=== PATIENT | male | born 1940 ===

== ENCOUNTER 2020-05-28 04:51 | Emergency (ER) | payer MEDICARE, MEDICAID, SELFPAY ==
--- NOTE | ~2020-05-28 | XR_ITS ---
EXAMINATION: XR CHEST CLINICAL INFORMATION: Chest pain COMPARISON: 08/10/2017 TECHNIQUE: 2 views of the chest were obtained. FINDINGS: Right IJ port catheter tip lies in the region of the upper SVC. Lung volumes are symmetric. Redemonstrated streaky focal opacity in the mid right lung. No new consolidation bilaterally. No evidence of pneumothorax, pleural effusion, or pulmonary edema. Cardiac size is within normal limits. Calcification is present at the aortic arch. No acute osseous findings are seen. XR/XR chest 2V IMPRESSION: Persistent streaky right midlung opacity favoring scarring. No new acute findings identified.
--- NOTE | ~2020-05-28 | XR_ITS ---
EXAMINATION: XR THORACOLUMBAR SPINE CLINICAL INFORMATION: Increased back pain, history of lung adeno COMPARISON: 08/10/2017 TECHNIQUE: 2 views of the thoracic spine. FINDINGS: Alignment of the thoracic spine appears anatomic. Vertebral body heights and intervertebral disc spaces appear preserved. No acute fracture is seen. Additional thoracic findings are described on accompanying chest CT. XR/XR thoracic spine 2V IMPRESSION: No acute findings identified.
--- NOTE | ~2020-05-28 | XR_ITS ---
EXAMINATION: XR LUMBOSACRAL SPINE CLINICAL INFORMATION: Back pain, history of lung cancer COMPARISON: 04/23/2017 TECHNIQUE: Three views of the lumbosacral spine. FINDINGS: There is anatomic alignment of the lumbar vertebral bodies and posterior lungs. Vertebral body heights are maintained. No acute fracture is seen. There are endplate osteophytes of the mid to lower lumbar spine. Sacroiliac joints appear intact. XR/XR lumbar spine 2-3V IMPRESSION: No acute findings identified. Multilevel degenerative endplate changes.
[2020-05-28 04:57] VITALS: BP 142/80; PULSE 84; RESP 18; TEMP 36.9; O2SAT 98; BMI 21.4
--- NOTE | 2020-05-28 05:21 | ECG_ITS ---
Test Reason : SHORTNESS OF BREATH Blood Pressure : / mmHG Vent. Rate : 067 BPM Atrial Rate : 067 BPM P-R Int : 136 ms QRS Dur : 072 ms QT Int : 398 ms P-R-T Axes : 019 -03 042 degrees QTc Int : 420 ms Normal sinus rhythm Normal ECG When compared with ECG of 28-JUL-2017 09:50, Vent. rate has decreased BY 49 BPM Referred By: Andi Dewitt Electronically Signed By:SANA FRIEND
--- NOTE | 2020-05-28 05:24 | ED_ITS ---
HPI - General Adult General Chief complaint: General Medical Stated complaint: Multiple Complaints Time Seen by Provider: 05/28/20 04:57 Source: patient Mode of arrival: ambulatory Limitations: language barrier (Patient speaks Croatian only, the iPad interpreter for the deaf was used.) History of Present Illness HPI narrative: 80-year-old male who presents emergency department for evaluation of back pain. The patient states that he has been having intermittent back pain from his neck down to his sacrum for the past 3 months. The pain is intermittent but he states that it is becoming more frequent. He describes the pain as a dull ache which is greater than 10/10 at its worst. The pain is worse with movement. He has taken Tylenol with only minimal relief of his pain. He denied any injury. He states that he has noticed urinary frequency and dysuria. He denied numbness, weakness, loss of bowel or bladder control. The patient was not able to give me any details about his cancer history. The following information was obtained from a hematology oncology clinic progress note dated 09/20/2017: Patient was treated for adenocarcinoma of the right lung and squamous carcinoma of the left tonsil with chemoradiation in 2015 and 2016, right middle lobectomy in July of 2017. . He was under the care of Dr. Gil. The patient then went to [place] in August of 2017 . He states that while he was in [place], he did not follow-up with an oncologist. He returned to the [place] area approximately 3 months ago and has not had any follow-up care. Related Data Allergies Allergy/AdvReac Type Severity Reaction Status Date / Time sulfamethazine Allergy Intermediate ITCHING Unverified 12/11/19 19:26 [SULFAMETHAZINE] Sulfamethazine Allergy Unknown itching Uncoded 08/10/17 00:00 Review of Systems Review of Systems: Yes all other systems are reviewed and are negative Neurologic: Denies Abnormal speech present [facility] Past Medical History [facility] Narrative: Past medical history significant for adenocarcinoma of the right lung and squamous carcinoma of the left tonsil. The patient is currently living in [place] with his daughter. He states that he stopped smoking cigarettes 3 months prior. He has a greater than 30 pack-year history of smoking. He states that he occasionally drinks alcohol. He denies drug use. Medical History (Updated 05/28/20 @ 07:08 by Andi Dewitt MD) Cancer Surgical History (Updated 05/28/20 @ 05:07 by Jessica Castañeda) History of dental surgery Social History Social History Advance Directives: No Physical Exam Vital Signs: Vital Signs: Last Vital Signs Temp 98.4 F 05/28/20 04:57 Pulse 84 05/28/20 04:57 Resp 18 05/28/20 04:57 BP 142/80 H 05/28/20 04:57 Pulse Ox 98 05/28/20 04:57 Body Mass Index 21.4 Const: General: cooperative Orientation/consciousness: oriented to person and oriented to place Limitations: no limitations HENMT: Head: Yes normal to inspection, Yes normocephalic and Yes atraumatic Ears: external ears normal General nose exam: Normal external nose present Face and sinus: Yes normal facial exam Mouth: Normal oral and palatal mucosa present Throat: Yes posterior oropharynx normal Eyes: Periorbital: periorbital findings normal Eyelids: Yes eyelids normal Conjunctivae: conjunctivae normal Sclerae: sclerae normal Corneas: corneas normal Pupils: Equal, round and reactive pupils present Direct Ophthalmoscopy: normal light reflex Neck: Neck: Yes full ROM, Yes no lymphadenopathy, Yes no meningeal signs, Yes trachea midline and Yes supple Chest: Chest palpation & inspection: normal inspection of the chest and normal palpation of entire chest wall Resp: Effort & Inspection: normal respiratory effort and able to speak in complete sentences Auscultation: clear to auscultation bilaterally Cardio: Rate: regular rate Rhythm: regular rhythm Heart sounds: S1 normal heart sound present, S2 normal heart sound present and no murmurs GI: Inspection: Yes normal to inspection Palpation (GI): Soft to palpation, nontender, no guarding, not rigid and No hepatosplenomegaly present : General: Yes no CVA tenderness Back/Spine/Pelvis: Back: no CVA tenderness Cervical Spine: normal cervical lordosis Thoracic/Lumbar Spine: thoracic and lumbar spine normal to inspection and paraspinal muscle tenderness bilaterally in the upper thoracic, in the mid thoracic, in the lower thoracic, in the upper lumbar, in the mid lumbar and in the lower lumbar Skin: Lesions: no lesions Rashes: no rashes Wounds: no wounds Neuro: General: oriented to person, oriented to place and no meningeal signs Cranial nerves: Yes CN's II-XII intact bilaterally and Yes Equal, round and reactive pupils present Cognition (Neuro): normal cognition Speech: No Abnormal speech present Motor exam (neuro): 5/5 motor strength present throughout Extrem: General: Yes normal to inspection and Yes full ROM Psych: Appearance: well kempt Mental Status: mental status grossly normal Speech and movement: Normal speech and movement present Affect: normal affect Attitude: cooperative Thought process: Normal thought process present Thought content: Normal thought content present Course Course Course Narrative: 80-year-old male with a history adrnocarcinoma of the right lung and squamous cell carcinoma of the left tonsil treated here at [facility] from [id number] with possible cure who then went to [place] and had no follow-up care for his cancer. He states that he returned from [place] 3 months ago and has been living in the [facility] and has been experiencing diffuse back pain x3 months. He also complained of frequency and dysuria. Physical examination did reveal tenderness with palpation of his thoracic to lumbar spine with no localizing point tenderness as well as tenderness with palpation of his thoracic and lumbar paraspinal muscles bilaterally. I did order a laboratory evaluation, urinalysis, chest x-ray, EKG and thoracic lumbar spine x-rays to look for lytic lesions. The patient was treated with Toradol 30 mg IV for his back pain. 0659: The patient's back pain is significantly better after the IV Toradol. The patient's laboratory evaluation was unremarkable. Also, of note, the patient's alk-phos was not elevated which is reassuring suggested his back pain is less likely caused by metastatic disease. The patient's thoracic and lumbar spine x-rays are consistent with degenerative disease of the spine with no evidence of metastatic lesions. Chest x-ray did reveal a right middle lobe scarring but the patient did have a lobectomy. I did discuss these findings with the patient. The patient will need to follow-up with Dr. Gil to determine if he needs further evaluation and follow-up for his cancer and determine if he needs removal of the Port-A-Cath. Medical Decision Making Lab Data Result diagrams: 05/28/20 05:35 05/28/20 05:35 Labs: Lab Results 05/28/20 05/28/20 05/28/20 Range/Units 05:35 05:35 06:25 WBC 6.1 (4.8-10.8) X10*3/uL RBC 4.26 L (4.60-5.80) X10*6/uL Hgb 13.9 L (14.0-18.0) g/dl Hct 40.7 L (42-52) % MCV 95.5 (80-98) fL MCH 32.6 (27.0-33.0) pg MCHC 34.2 (31.0-36.0) g/dl RDW 12.6 (11.0-16.0) % Plt Count 254 (160-400) X10*3/uL MPV 10.8 (9.4-12.4) fL Immature Gran % (Auto) 0.3 (0.0-0.4) % Neut % (Auto) 51.9 (45-73) % Lymph % (Auto) 28.5 (20-40) % [place] % (Auto) 14.7 H (2-11) % Eos % (Auto) 4.3 H (0-4) % Baso % (Auto) 0.3 (0-2) % Lymph # (Auto) 1.7 (1.2-4.9) X10*3/uL [place] # (Auto) 0.9 (0.1-1.2) X10*3/uL Eos # (Auto) 0.3 (0.0-0.4) X10*3/uL Baso # (Auto) 0.0 (0.0-0.2) X10*3/uL Abs Immat Gran (auto) 0.02 (0.00-0.03) X10*3/uL Absolute Neuts (auto) 3.2 (2.0-8.3) X10*3/uL Absolute Nucleated RBC 0.000 (0.0-0.012) X10*3/uL Nucleated RBC % (auto) 0.0 (0.0-0.2) /100WBC Sodium 141 (135-145) mmol/L Potassium 4.4 (3.3-5.1) mmol/L Chloride 107 (96-108) mmol/L Carbon Dioxide 25 (22-29) mmol/L Anion Gap 13 (12-20) BUN 21 H (9-16) mg/dL Creatinine 0.85 (0.5-1.4) mg/dL Estim Creat Clear Calc 57.4 Estimated GFR > 60 Random Glucose 91 (60-115) mg/dL Calcium 9.6 (8.4-10.2) mg/dL Total Bilirubin 0.4 (0.0-1.0) mg/dL AST 16 (5-37) U/L ALT 12 (0-40) U/L Alkaline Phosphatase 63 (39-117) U/L Total Protein 6.6 (6.5-8.0) g/dL Albumin 4.5 (3.5-5.0) g/dL Urine Color YELLOW Urine Appearance HAZY Urine pH 5.5 (5.0-8.0) Ur Specific [place] 1.025 (1.005-1.025) Urine Protein NEG (NEG-TRACE) MG/DL Urine Glucose (UA) NEG (NEG) MG/DL Urine Ketones NEG (NEG) MG/DL Urine Blood NEG (NEG) Urine Nitrite NEG (NEG) Ur Leukocyte Esterase NEG (NEG) Discharge Plan Discharge Clinical Impression: Back pain Qualifiers: Back pain location: back pain in unspecified location Chronicity: acute Back pain laterality: bilateral Qualified Code(s): M54.9 - Dorsalgia, unspecified Patient Disposition: Home, Self-Care Instructions: Back Pain (ED) Additional Instructions: Your blood work was normal. Your chest x-ray was normal. The x-rays of your upper and lower back did not reveal any significant abnormalities except for arthritis of the back. At this time, I believe that your back pain is due to arthritis and inflammation of your back. Take the following medications for your back pain. Take ibuprofen 200 mg pills, 2 pills every 6 hours as needed for pain. Take Tylenol (acetaminophen) 500 mg pills, 2 pills every 6 hours as needed for pain. You will need to follow-up with Dr. Gil (the cancer doctor) for re-evaluation to make sure that you do not have recurrence of your cancers (adenocarcinoma of the right lung and squamous carcinoma of the left tonsil). Follow-up with Dr. Gil in 2 weeks. Please return to the emergency department if your symptoms get worse or if you develop any symptoms that are concerning to you. Referrals: Anthony Gil MD [Physician] - 2 weeks (Patient returned from [place], no follow-up for his cancer for the past 3 years, presented to the ED with back pain with a negative workup. Needs follow-up for previous cancers (adenocarcinoma of the right lung and squamous carcinoma of the left tonsil).)
[2020-05-28 05:46] LABS: Basophils Percent Auto 0.3 % (0-2); Eosinophils Absolute Auto 0.3 X10*3/uL (0.0-0.4); Eosinophils Percent Auto 4.3 % (0-4); Hematocrit 40.7 % (42-52); Hemoglobin 13.9 g/dl (14.0-18.0); Imm Gran Abs Auto 0.02 X10*3/uL (0.00-0.03); Imm Gran Pct Auto 0.3 % (0.0-0.4); Lymphocytes Absolute Auto 1.7 X10*3/uL (1.2-4.9); Lymphocytes Percent Auto 28.5 % (20-40); MANUAL DIFF FLAG NO; Mean Corpuscular HGB Conc 34.2 g/dl (31.0-36.0); Mean Corpuscular Hemoglobin 32.6 pg (27.0-33.0); Mean Corpuscular Volume 95.5 fL (80-98); Mean Platelet Volume 10.8 fL (9.4-12.4); Monocytes Absolute Auto 0.9 X10*3/uL (0.1-1.2); Monocytes Percent Auto 14.7 % (2-11); Neutrophils Absolute Auto 3.2 X10*3/uL (2.0-8.3); Neutrophils Percent Auto 51.9 % (45-73); Platelet Count 254 X10*3/uL (160-400); Red Blood Count 4.26 X10*6/uL (4.60-5.80); Red Cell Distribution Width 12.6 % (11.0-16.0); White Blood Count 6.1 X10*3/uL (4.8-10.8)
[2020-05-28] MEDS: Ketorolac Tromethamine 30 MG/ML VIAL IVPUSH (06:22)
[2020-05-28 06:34] LABS: Glucose Urine UA NEG (NEG); Leukocyte Esterase Urine NEG (NEG); Nitrite Urine NEG (NEG); PH 5.5 (5.0-8.0); Specific Gravity - Urine 1.025 (1.005-1.025); Urine Blood NEG (NEG); Urine Ketones NEG (NEG); Urine Protein NEG (NEG-TRACE)
[2020-05-28 06:39] LABS: Appearance Urine HAZY; Color Urine YELLOW
[2020-05-28 06:41] LABS: Alanine Aminotransferase 12 U/L (0-40); Albumin Level 4.5 g/dL (3.5-5.0); Alkaline Phosphatase 63 U/L (39-117); Anion Gap 13 (12-20); Aspartate Amino Transferase 16 U/L (5-37); Bilirubin Total 0.4 mg/dL (0.0-1.0); Blood Urea Nitrogen 21 mg/dL (9-16); Calcium 9.6 mg/dL (8.4-10.2); Carbon Dioxide 25 mmol/L (22-29); Chloride 107 mmol/L (96-108); Creatinine Clr Calc Pharmacy 57.4; Estimated Glomerular Filt Rate > 60; Glucose Random 91 mg/dL (60-115); Potassium 4.4 mmol/L (3.3-5.1); Sodium 141 mmol/L (135-145); Total Protein 6.6 g/dL (6.5-8.0)
== END 2020-05-28 08:06 | disposition home or self-care (01) ==
PROVIDERS: Emergency Provider Emergency Medicine Emergency Medical Services
DX: M54.9 Dorsalgia, unspecified (principal); Z85.110 Personal history of malignant carcinoid tumor of bronchus and lung
CPT/HCPCS: 36415; 71046; 72070; 72100; 80053; 81003; 85025; 93005; 96372; 96374; 99283; 99284; J1885

== ENCOUNTER → 2020-08-06 09:44 | Outpatient (BNV) | payer MEDICARE, MEDICAID, SELFPAY | PROVIDERS: PCP Family Medicine; Visit Provider Internal Medicine Medical Oncology | DX: C34.91 Malignant neoplasm of unspecified part of right bronchus or lung (principal); Z85.89 Personal history of malignant neoplasm of other organs and systems | CPT/HCPCS: 99213; 99214 ==

== ENCOUNTER 2020-09-01 07:06 | Outpatient (REF) | payer MEDICARE, MEDICAID, SELFPAY ==
--- NOTE | ~2020-09-01 | CT_ITS ---
CT SOFT TISSUE NECK WITH CONTRAST CLINICAL INFORMATION: Follow-up adenocarcinoma of the right lung/neck. COMPARISON: Neck CT 06/25/2019. TECHNIQUE: Following the intravenous administration of 100 mL of Omnipaque 350 intravenous contrast, helical imaging was performed in the axial plane with generation of coronal and sagittal reformatted images. This CT examination was performed using dose optimization techniques as appropriate, variously including the following: *Automated exposure control *Adjustment of mA and/or kV according to patient size (this includes techniques or standardized protocols for targeted exams where dose is matched to indication/reason for exam; i.e. extremities or head) *Use of iterative reconstruction technique FINDINGS: There is subtle mild asymmetric mucosal enhancement within the right glossotonsillar sulcus and within the left nasopharyngeal mucosa that can be correlated with direct visual inspection. No discrete enhancing mass lesions in these areas. There is soft tissue fullness within the supraglottic region on image 69 of series 3 and image 67 of series 3 that could be posttreatment related or that could reflect a lesion in this location that can be further assessed with PET or direct visual inspection. There are posttreatment related changes within the carotid space bilaterally. Posttreatment stranding within the suprahyoid neck including adjacent to the left submandibular gland. Right IJ Port-A-Cath. The lungs and upper mediastinum are diagnostically assessed on the chest CT performed the same day. Please see that report for further details. There is multilevel cervical spondylosis. No suspicious intraosseous lesions are identified. The partially imaged intracranial compartment is unremarkable. Stable sclerosis involving the right frontal bone. CT/CT soft tissue neck w con IMPRESSION: - There is subtle mild asymmetric mucosal enhancement within the right glossotonsillar sulcus and within the left nasopharyngeal mucosa that can be correlated with direct visual inspection. No discrete enhancing mass lesions in these areas. - There is soft tissue fullness within the supraglottic region on image 69 of series 3 and image 67 of series 3 that could be posttreatment related or that could reflect a lesion in this location that can be further assessed with PET or direct visual inspection. - There is no pathologic size criteria cervical lymphadenopathy. - Posttreatment related changes as discussed above.
--- NOTE | ~2020-09-01 | CT_ITS ---
EXAMINATION: CT CHEST WITH CONTRAST CLINICAL INFORMATION: Adenocarcinoma right lung. COMPARISON: CT chest 05/28/2017 and a chest x-ray 05/28/2020. PET/CT skull to thigh 06/21/2017. TECHNIQUE: Multidetector volumetric CT imaging of the chest was obtained after the administration of 80 mL of Omnipaque 350 intravenous contrast without immediate adverse reactions. Axial MIP volume rendering provided. Sagittal and coronal reformatted images were obtained. This CT examination was performed using dose optimization techniques as appropriate, variously including the following: *Automated exposure control *Adjustment of mA and/or kV according to patient size (this includes techniques or standardized protocols for targeted exams where dose is matched to indication/reason for exam; i.e. extremities or head) *Use of iterative reconstruction technique DLP: 5870 mGy-cm FINDINGS: [employer]: Hyperinflated lungs with broad band of opacity right midlung. LUNGS: The lungs are well expanded with thick band of density with sutures in the right lower lobe likely postop changes/large scar. Similar smaller ill-defined density seen in the right middle lobe likely scar or postradiation change. There is underlying diffuse emphysema and ground-glass attenuation seen in both upper lobes. There is bilateral apical parenchymal scarring and apical pleural thickening. Minimal atelectatic changes are seen in the lingula and posterior segment right lower lobe. MEDIASTINUM: The heart size and the great vessels are normal caliber. There is a right central venous port with its tip in distal SVC. There are coronary artery calcifications present. PLEURA: There is no pleural effusion. No pleural mass or thickening. AXILLA: No lymphadenopathy. UPPER ABDOMEN: Visualized liver, spleen, pancreas, gallbladder and bilateral adrenal glands are unremarkable. There is a moderate-sized left renal cyst. OSSEOUS STRUCTURES: No lytic or sclerotic process seen. CT/CT chest w con IMPRESSION: Emphysema with postsurgical changes and scarring in right lower lobe parahilar region and right middle lobe. No recurrent pulmonary nodule or mass seen. There is no abnormal mediastinal or hilar adenopathy. Moderate-sized left renal cyst.
[2020-09-01] MEDS: iohexoL 350 MG/ML 100 ML INFUS..BTL IV (08:59)
== END 2020-09-01 07:07 | disposition home or self-care (01) ==
LOC: HO.CT 07:06
PROVIDERS: PCP Family Medicine; Visit Provider Internal Medicine Medical Oncology
DX: Z13.89 Encounter for screening for other disorder (principal)
CPT/HCPCS: 70491; 71260

== ENCOUNTER 2020-09-01 09:58 | Emergency (ER) | payer MEDICARE, MEDICAID, SELFPAY ==
[2020-09-01 10:14] VITALS: BP 140/85; PULSE 70; RESP 18; TEMP 36.5; O2SAT 98; BMI 23.7
--- NOTE | 2020-09-01 12:12 | ED_ITS ---
HPI - Back Pain/Injury General Chief Complaint: Back Pain/Injury Stated Complaint: back pain Time Seen by Provider: 09/01/20 11:40 Source: patient Mode of arrival: ambulatory History of Present Illness HPI Narrative: 80-year-old male with past medical history adenocarcinoma of the right long and squamous cell carcinoma of the left tonsil presenting to the ED complaining of acute on chronic back pain x years. Reports history of back pain secondary to prior occupation, with flares, unchanged today. Denies recent/known injury/trauma or falls, numbness, tingling, weakness, urinary incontinence/retention, fever. Also reports intermittent headaches x awhile, had 1 prior to ED arrival. Denies associated vision changes. Of note patient had recent f/u with Dr. Manley, and obtained screening CT scan of the neck and chest outpatient today (unresulted at this time). Note patient was recently seen and treated in our ED on 05/28/2020 for similar back pain, had CXR/back x-rays that did not show lytic lesions, and labs that were reassuring. MD elicited complaint: back pain Related Data Home Medications Medication Instructions Recorded Confirmed omeprazole 1 cap PO DAILY 08/06/20 08/06/20 Previous Rx's Medication Instructions Recorded acetaminophen [Tylenol Extra 500 mg PO Q6H PRN #20 tab 09/01/20 Strength] cyclobenzaprine 5 mg PO Q8H PRN 5 Days #14 tab 09/01/20 lidocaine [Lidoderm] 1 patch TOPICAL DAILY PRN #30 ea 09/01/20 MDD remove after 12 hours naproxen 500 mg PO BID PRN 10 Days #20 tab 09/01/20 Allergies Allergy/AdvReac Type Severity Reaction Status Date / Time sulfamethazine Allergy Intermediate ITCHING Verified 09/01/20 10:10 [SULFAMETHAZINE] Sulfamethazine Allergy Unknown itching Uncoded 08/10/17 00:00 Review of Systems Review of Systems: Constitutional: No Fever, No Chills, No Fatigue, No Malaise ENT/Mouth: No Hoarseness, No sore throat, No Swallowing Difficulty Eyes: No Eye Pain, No Vision Changes Cardiovascular: No Chest Pain, No SOB Respiratory: No Cough, No Dyspnea Gastrointestinal: No Nausea, No Vomiting, No Diarrhea Genitourinary: No Dysuria, No Urinary Frequency, No Hematuria, No Urinary Incontinence/retention, No Urinary Flow Changes Musculoskeletal: No joint pain, No Myalgias Skin: No Skin Lesions, No rash Neuro: No Weakness, No Numbness, No Paresthesias, +intermittent JOHNSON's Yes all other systems are reviewed and are negative Neurologic: Denies Sensory deficit (Neuro) [facility] Past Medical History Attestation statement: The following information was validated with the patient. Medical History (Updated 09/01/20 @ 12:13 by FRANCINE Storey) Cancer Surgical History (Updated 08/06/20 @ 10:20 by Gill Manley MD) History of dental surgery Social History Social History (Updated 08/06/20 @ 10:12 by Leigh Murphy) Alcohol intake: former Advance Directives: No Advance Directives Information Provided: No Physical Exam Vital Signs: Vital Signs: Last Vital Signs Temp 97.7 F 09/01/20 10:14 Pulse 70 09/01/20 10:14 Resp 18 09/01/20 10:14 BP 140/85 H 09/01/20 10:14 Pulse Ox 98 09/01/20 10:14 Body Mass Index 23.7 Const: General: cooperative, healthy appearing and no acute distress Orientation/consciousness: patient oriented x3 Limitations: no limitations HENMT: Head: Yes normal to inspection, Yes normocephalic and Yes atraumatic Ears: hearing grossly normal bilaterally General nose exam: Normal external nose present Face and sinus: Yes normal facial exam Mouth: Normal oral and palatal mucosa present Throat: Yes posterior oropharynx normal and Yes uvula midline Eyes: General: appearance normal, both eyes and all related structures EOM: EOMs intact bilaterally Neck: Other: No midline cervical spinous tenderness or step-offs. + bilateral paraspinal MSK tenderness and bilateral trapezius muscle tenderness to palpation Neck: Yes normal visual inspection, Yes no meningeal signs, Yes trachea midline, Yes supple and No anterior neck swelling Chest: Chest palpation & inspection: normal inspection of the chest Resp: Effort & Inspection: normal respiratory effort Cardio: Rate: regular rate GI: Inspection: Yes normal to inspection Palpation (GI): Soft to palpation Back/Spine/Pelvis: Other: No midline thoracic/lumbar spinous tenderness or step-offs. + thoracic MSK tenderness to palpation Skin: Rashes: no rashes Wounds: no wounds Neuro: Other: No saddle anesthesia. Ambulating with steady gait General: patient oriented x3, gait normal, tone normal, moves all extremities, no meningeal signs and no focal motor deficits Gait exam (Neuro): Normal gait present Motor exam (neuro): 5/5 motor strength present throughout Sensory Exam: No Sensory deficit (Neuro) Extrem: General: Yes normal to inspection MDM - Back Pain/Injury MDM Narrative Medical decision making narrative: 80-year-old male with past medical history adenocarcinoma of the right long and squamous cell carcinoma of the left tonsil presenting to the ED complaining of acute on chronic back pain x years. Also reports intermittent headaches x awhile. On exam vital signs stable, NAD, well appearing, no midline spinous tenderness throughout, no red flag symptoms, no saddle anesthesia. MSK tenderness elicited on exam. Ambulating with steady gait. Likely MSK pain. Low concern for cauda equina, cord compression, or lytic bone lesions with recent workup, and pending CTs at this time. Headaches likely migraine. Low concern for CVT/cervical dissection Discharge Plan Discharge Clinical Impression: Thoracic back pain, Intermittent headache Patient Disposition: Home, Self-Care Instructions: Acute Headache (ED), Back Pain (ED) Prescriptions: New lidocaine [Lidoderm] 5 % adhesive patch,medicated 1 patch topical DAILY MDD remove after 12 hours PRN (Reason: pain) Qty: 30 RF: 0 cyclobenzaprine 5 mg tablet 5 mg PO Q8H PRN (Reason: pain (scale score 7-10)) 5 Days Qty: 14 RF: 0 naproxen 500 mg tablet 500 mg PO BID PRN (Reason: pain) 10 Days Qty: 20 RF: 0 acetaminophen [Tylenol Extra Strength] 500 mg tablet 500 mg PO Q6H PRN (Reason: pain or fever) Qty: 20 RF: 0 No Action omeprazole 40 mg capsule,delayed release(DR/EC) 1 cap PO DAILY RF: 0 Referrals: Gill Manley MD [Physician] - 5 days Shelley Orellana MD [Primary Care Provider] - 2 days Print Language: Austrian
== END 2020-09-01 13:35 | disposition home or self-care (01) ==
PROVIDERS: Emergency Provider Emergency Medicine; PCP Family Medicine
DX: M54.6 Pain in thoracic spine (principal); R51.9 Headache, unspecified; C34.91 Malignant neoplasm of unspecified part of right bronchus or lung
CPT/HCPCS: 70491; 71260; 99283

== ENCOUNTER → 2020-11-05 10:25 | Outpatient (BNVA) | payer OTHER, SELFPAY | PROVIDERS: PCP Family Medicine; Visit Provider Surgery | DX: C34.91 Malignant neoplasm of unspecified part of right bronchus or lung (principal); Z79.899 Other long term (current) drug therapy; Z90.2 Acquired absence of lung [part of] | CPT/HCPCS: 99212 ==

== ENCOUNTER 2021-09-19 08:31 | Outpatient (REF) | payer OTHER, SELFPAY ==
[2021-09-19 09:21] LABS: Blood Urea Nitrogen 12 mg/dL (9-16); Estimated Glomerular Filt Rate > 60
== END 2021-09-19 08:32 | disposition home or self-care (01) ==
LOC: HO.CT 08:31
PROVIDERS: PCP Family Medicine; Visit Provider Internal Medicine Medical Oncology
DX: C34.91 Malignant neoplasm of unspecified part of right bronchus or lung (principal)
CPT/HCPCS: 36415; 82565; 84520

== ENCOUNTER 2021-09-23 07:58 | Outpatient (REF) | payer OTHER, SELFPAY ==
--- NOTE | ~2021-09-23 | CT_ITS ---
EXAMINATION: CT CHEST WITH CONTRAST CLINICAL INFORMATION: Malignant neoplasm. COMPARISON: None TECHNIQUE: Multidetector volumetric CT imaging of the chest was obtained after the administration of 50 mL of Omnipaque 350 intravenous contrast without immediate adverse reactions. Axial MIP volume rendering provided. Sagittal and coronal reformatted images were obtained. This CT examination was performed using dose optimization techniques as appropriate, variously including the following: *Automated exposure control *Adjustment of mA and/or kV according to patient size (this includes techniques or standardized protocols for targeted exams where dose is matched to indication/reason for exam; i.e. 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 LUNGS: There is centrilobular emphysema with bullous changes in both upper lobes right greater than left and mild ground-glass attenuation. Postsurgical sutures are seen in the right lower lobe with diffuse ground-glass attenuation likely postsurgical changes similar to previous study. Mild bilateral apical parenchymal scarring and apical pleural thickening is stable. No pulmonary nodules, masses or consolidation seen. There are punctate 1 mm subpleural nodules likely calcified granulomas in the right lower lobe image 87/10, similar to previous study. There is a 4 cm nodule left lower lobe axial image 142/6, stable. No new nodules are visualized. MEDIASTINUM: The thyroid lobes are symmetric and normal. The central trachea and the bronchi widely patent. Heart size and the great vessels are normal caliber. There is no pericardial effusion. There is trace coronary artery calcification seen. PLEURA: There is no pleural effusion. No pleural mass or thickening. AXILLA: No lymphadenopathy. UPPER ABDOMEN: The liver is diffusely attenuated. Otherwise visualized liver, spleen, pancreas and bilateral adrenal glands are unremarkable. There is a moderate-sized cyst upper pole left kidney. OSSEOUS STRUCTURES: No lytic or sclerotic process seen. CT/CT chest w con IMPRESSION: Stable lung findings with postsurgical changes right midlung. Postsurgical scarring and ground-glass attenuation right parahilar region and right lower lobe and a small nodule in the left lower lobe are all stable. No new nodules seen. No abnormal mediastinal or axillary lymphadenopathy seen. Diffuse hepatic steatosis. Fleischner guidelines were followed.
[2021-09-23] MEDS: iohexoL 350 MG/ML 100 ML INFUS..BTL IV (08:58)
== END 2021-09-23 07:59 | disposition home or self-care (01) ==
LOC: HO.CT 07:58
PROVIDERS: Visit Provider Internal Medicine Medical Oncology
DX: C34.91 Malignant neoplasm of unspecified part of right bronchus or lung (principal)
CPT/HCPCS: 71260; Q9967

== ENCOUNTER 2021-10-04 12:04 | Outpatient (REF) | payer OTHER, SELFPAY ==
[2021-10-04 13:24] LABS: Vitamin B12 417 pg/mL (200-900)
== END 2021-10-04 12:05 | disposition home or self-care (01) ==
LOC: HO.LAB 12:04
PROVIDERS: PCP Family Medicine; Visit Provider Psychiatry & Neurology Neurology
DX: G31.84 Mild cognitive impairment of uncertain or unknown etiology (principal)
CPT/HCPCS: 36415; 82607

== ENCOUNTER 2022-09-27 07:59 | Outpatient (REF) | payer OTHER, SELFPAY | END 2022-09-27 08:00 | disposition home or self-care (01) | LOC: HO.CT 07:59 | PROVIDERS: PCP Family Medicine; Visit Provider Internal Medicine Medical Oncology | DX: C34.91 Malignant neoplasm of unspecified part of right bronchus or lung (principal) | CPT/HCPCS: 71260; 82565; Q9967 ==

== ENCOUNTER 2022-12-13 09:54 | Outpatient (AMB) | payer OTHER, SELFPAY ==
[2022-12-13 10:04] VITALS: BP 130/70; PULSE 69; O2SAT 99; BMI 23.7
--- NOTE | 2022-12-13 10:04 | A.OFFVIS_ITS ---
Intake Vital Signs 12/13/22 10:04 Height 5 ft 3 in Weight 134 lb BMI 23.7 BP 130/70 Blood Pressure Location Lt brachial Position Sitting Pulse 69 Pulse Source Pulse Oximeter Pulse Oximetry (%) 99 Oxygen Delivery Method Room Air Intake Visit Reasons: Pulmonary Nodules Intake Note: pt is here as a new patient, he states he feels good, only runny nose. 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 Operator Automatic Name: pravin Allergies sulfamethazine [SULFAMETHAZINE] Allergy (Intermediate, Verified 12/13/22 10:08) ITCHING Sulfamethazine Allergy (Unknown, Uncoded 12/13/22 10:08) itching Medication List - Last Reviewed 12/13/22 by NOREEN Adler acetaminophen (Tylenol Extra Strength) 500 mg PO Q6H PRN amlodipine 5 mg PO DAILY cholecalciferol (vitamin D3) 50 mcg PO DAILY lidocaine 5% (Lidoderm) 1 patch topical DAILY PRN MDD remove after 12 hours omeprazole 1 cap PO DAILY Do you need a note to return to daycare/school/sports/work: No HPI Pulmonary Nodules HPI Details 80-year-old male with history of carcinoma of the tonsil as well as adenocarcinoma the right upper lobe diagnosed in [place]. He had been treated for both presumably and in 2018 underwent a Davinci right middle lobe wedge resection for diagnostic and possible therapeutic purposes. This turned out to be a benign nodule. A follow-up CT was done by his medical oncologist on 09/01/2020 which showed no evidence of recurrence or new disease He reports his breathing is stable and denies any unintentional weight loss, shortness of breath, fevers, chills, chest pain, cough, hemoptysis, or any new neurologic symptoms. This gentleman has been followed up at oncology service, by Dr. Gill Manley , who saw him last time in July of this year, and ordered a CT scan of the chest. She has not seen him since then. The patient comes in today to be seen by me for the 1st time, for continued follow-up. He denies any active complaints. Especially denies cough wheezing or shortness of breath. He has good appetite, and denies any weight loss. He has no problem with swallowing. HE STILL SMOKES ABOUT 2 CIGARETTES A DAY. 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) Alcohol intake: former Patient Tobacco Use Status: Current everyday Tobacco user Tobacco use type: Cigarette service: No Current occupational status: disabled Review of Systems Const All systems reviewed & are unremarkable except as noted in HPI and below Eyes Reports no additional complaints ENT Reports no additional complaints Card Denies chest pain, Denies syncope, Denies irregular heart rhythm and Denies leg edema Resp Reports as per HPI GI Denies no additional complaints Reports no additional complaints Musc Reports no additional complaints Skin/Breast Reports system reviewed and no additional complaints, except as documented Neuro Reports no additional complaints and Denies syncope Psych Reports no additional complaints Endo Reports no additional complaints Aller/Immun Reports no additional complaints Physical Exam Vital Signs: Last Vital Signs Pulse 69 12/13/22 10:04 BP 130/70 12/13/22 10:04 Pulse Ox 99 12/13/22 10:04 Oxygen Delivery Method Room Air 12/13/22 10:04 BMI result Body Mass Index 23.7 Const General: healthy appearing, comfortable, no acute distress, alert and awake Orientation/consciousness: patient oriented x3 HEENT Head: Yes normal to inspection General nose exam: No nasal polyps present and No nasal discharge present Face and sinus: Yes sinuses nontender Mouth: oropharynx normal Throat: Yes posterior oropharynx normal Eyes General: appearance normal, both eyes and all related structures Neck Neck: Yes normal visual inspection, Yes no lymphadenopathy, Yes trachea midline and Yes no JVD Thyroid: Thyroid normal Chest Chest palpation & inspection: normal inspection of the chest, normal palpation of entire chest wall, no tenderness and other (Has a sub cutaneous Jose David cath. in Rt pectoral area and Rt side of neck ) Resp Other: Percussion note is resonant, he has good breath sounds on both sides, no wheezes or rhonchi are heard Cardio Palpation: normal PMI Rate: regular rate Rhythm: regular rhythm Heart sounds: no gallops and no murmurs Peripheral pulses: Peripheral pulses 2+ throughout GI Palpation (GI): Soft to palpation, Tenderness to palpation present (GI), No hepatosplenomegaly present and Palpable mass present Auscultation: normal bowel sounds Back/Spine/Pelvis Thoracic/Lumbar Spine: thoracic and lumbar spine normal to inspection Skin General skin exam: no rashes or lesions noted Neuro General: patient oriented x3 and no focal motor deficits Cranial nerves: Yes CN's II-XII intact bilaterally Extrem General: Yes normal to inspection, Yes no clubbing, cyanosis or edema and Yes no calf tenderness Psych Speech and movement: Normal speech and movement present Results Reviewed Results Reviewed: *RESULTS OF THE CT SCAN OF HIS CHEST ON 10/07, EXPLAINED TO HIM THROUGH AN CHOKE REAMER. Assessment & Plan Assessment & Plan (1) Adenocarcinoma of right lung: Onset Date: ~2014 Comment: (dx 01/2015 in [place] - s/p RML lobectomy 07/2017) with Davinci Procedure . No recurrence Code(s): C34.91 - Malignant neoplasm of unspecified part of right bronchus or lung (2) Smoker: Comment: He is still smoking 2 cigarettes a day. Discussed with him and I recommended that he should quit completely. COMPLETE PULMONARY FUNCTION TEST IS ORDERED TO CHECK HIS LUNG FUNCTION. Code(s): F17.200 - Nicotine dependence, unspecified, uncomplicated (3) Pulmonary nodule: Comment: His most recent CT scan of the chest on 10/07/2022 Impression : New 1 cm the nonspecific groundglass attenuation nodule in the posterior segment of the right upper lobe near the fissure. Otherwise stable chest CT exam. This needs to be followed closely. I think he should have a repeat CT scan of the chest on short term basis. *I plan to see him for follow-up in 6 weeks and would order the CT scan of the chest at that time. Code(s): R91.1 - Solitary pulmonary nodule Coding Level of Care Code New Pt Level 4 (50673) Diagnoses Adenocarcinoma of right lung C34.91 Smoker F17.200 Pulmonary nodule R91.1
== END 2022-12-13 10:21 | disposition home or self-care (01) ==
PROVIDERS: PCP Family Medicine; Visit Provider Internal Medicine
DX: C34.91 Malignant neoplasm of unspecified part of right bronchus or lung (principal); F17.200 Nicotine dependence, unspecified, uncomplicated; R91.1 Solitary pulmonary nodule
CPT/HCPCS: 99204

== ENCOUNTER → 2022-12-13 09:54 | Outpatient (BNVA) | payer OTHER, SELFPAY | PROVIDERS: PCP Family Medicine; Visit Provider Internal Medicine ==

== ENCOUNTER 2023-02-21 10:20 | Outpatient (AMB) | payer OTHER, SELFPAY ==
[2023-02-21 10:51] VITALS: BP 128/74; PULSE 83; O2SAT 99; BMI 24.4
--- NOTE | 2023-02-21 10:51 | A.OFFVIS_ITS ---
Intake Vital Signs 02/21/23 10:51 Height 5 ft 3 in Weight 138 lb BMI 24.4 BP 128/74 Blood Pressure Location Lt brachial Position Sitting Pulse 83 Pulse Source Pulse Oximeter Pulse Oximetry (%) 99 Oxygen Delivery Method Room Air Intake Visit Reasons: Pulmonary Nodules Intake Note: pt is here for follow up and states he is feeling well Engineering Aid Required: Yes Engineering Aid Name: catherine Allergies sulfamethazine [SULFAMETHAZINE] Allergy (Intermediate, Verified 02/21/23 11:15) ITCHING Sulfamethazine Allergy (Unknown, Uncoded 02/21/23 11:15) itching Medication List - Last Reconciled 02/21/23 by Margi Joseph MD acetaminophen (Tylenol Extra Strength) 500 mg PO Q6H PRN amlodipine 5 mg PO DAILY cholecalciferol (vitamin D3) 50 mcg PO DAILY lidocaine 5% (Lidoderm) 1 patch topical DAILY PRN MDD remove after 12 hours omeprazole 1 cap PO DAILY Do you need a note to return to daycare/school/sports/work: No HPI Pulmonary Nodules HPI Details 83 YEARS OLD VERY PLEASANT GENTLEMAN IS BACK FOR FOLLOW-UP. SINCE HIS LAST VISIT HE HAS QUIT SMOKING COMPLETELY. HE DENIES ANY COUGH OR. WHEEZING OR SHORTNESS OF BREATH . WEIGHT REMAINS STABLE HE NEEDS TO BE FOLLOWED UP CLOSELY FOR 1 CM NODULAR DENSITY IN THE RIGHT UPPER LOBE POSTERIOR SEGMENT. 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) Alcohol intake: former Patient Tobacco Use Status: Former Tobacco user Tobacco use type: Cigarette service: No Current occupational status: disabled Review of Systems Const All systems reviewed & are unremarkable except as noted in HPI and below Eyes Reports no additional complaints ENT Reports no additional complaints Card Denies chest pain, Denies syncope, Denies irregular heart rhythm and Denies leg edema Resp Reports as per HPI GI Denies no additional complaints Reports no additional complaints Musc Reports no additional complaints Skin/Breast Reports system reviewed and no additional complaints, except as documented Neuro Reports no additional complaints and Denies syncope Psych Reports no additional complaints Endo Reports no additional complaints Aller/Immun Reports no additional complaints Physical Exam Vital Signs: Last Vital Signs Pulse 83 02/21/23 10:51 BP 128/74 02/21/23 10:51 Pulse Ox 99 02/21/23 10:51 Oxygen Delivery Method Room Air 02/21/23 10:51 BMI result Body Mass Index 24.4 Const General: healthy appearing, comfortable, no acute distress, alert and awake Orientation/consciousness: patient oriented x3 HEENT Head: Yes normal to inspection General nose exam: No nasal polyps present and No nasal discharge present Face and sinus: Yes sinuses nontender Mouth: oropharynx normal Throat: Yes posterior oropharynx normal Eyes General: appearance normal, both eyes and all related structures Neck Neck: Yes normal visual inspection, Yes no lymphadenopathy, Yes trachea midline and Yes no JVD Thyroid: Thyroid normal Chest Chest palpation & inspection: normal inspection of the chest, normal palpation of entire chest wall, no tenderness and other (Has a sub cutaneous Jose David cath. in Rt pectoral area and Rt side of neck ) Resp Other: Percussion note is resonant, he has good breath sounds on both sides, no wheezes or rhonchi are heard Cardio Palpation: normal PMI Rate: regular rate Rhythm: regular rhythm Heart sounds: no gallops and no murmurs Peripheral pulses: Peripheral pulses 2+ throughout GI Palpation (GI): Soft to palpation, Tenderness to palpation present (GI), No hepatosplenomegaly present and Palpable mass present Auscultation: normal bowel sounds Back/Spine/Pelvis Thoracic/Lumbar Spine: thoracic and lumbar spine normal to inspection Skin General skin exam: no rashes or lesions noted Neuro General: patient oriented x3 and no focal motor deficits Cranial nerves: Yes CN's II-XII intact bilaterally Extrem General: Yes normal to inspection, Yes no clubbing, cyanosis or edema and Yes no calf tenderness Psych Speech and movement: Normal speech and movement present Results Reviewed Results Reviewed: CT SCAN OF CHEST ON 09/27/22 New 1 cm the nonspecific groundglass attenuation nodule in the posterior segment of the right upper lobe near the fissure. Otherwise stable chest CT exam. Assessment & Plan Assessment & Plan (1) Smoker: Comment: He he claims today that he has quit completely, no more smoking. I commended him for that. COMPLETE PULMONARY FUNCTION TEST has not been done yet. Code(s): F17.200 - Nicotine dependence, unspecified, uncomplicated (2) Adenocarcinoma of right lung: Onset Date: ~2014 Comment: (dx 01/2015 in [place] - s/p RML lobectomy 07/2017) with Davinci Procedure . No recurrence Code(s): C34.91 - Malignant neoplasm of unspecified part of right bronchus or lung (3) Pulmonary nodule: Comment: His most recent CT scan of the chest on 10/07/2022 Impression : New 1 cm the nonspecific groundglass attenuation nodule in the posterior segment of the right upper lobe near the fissure. Otherwise stable chest CT exam. This needs to be followed closely. I explained to him. * I NOTE THAT HIS ONCOLOGIST DR. MICHAEL GOFF HAS ALREADY ORDERED THE REPEAT CT SCAN TO BE DONE IN THE NEXT FEW WEEKS. Code(s): R91.1 - Solitary pulmonary nodule Coding Level of Care Code Est Pt Level 3 (79913) Diagnoses Smoker F17.200 Adenocarcinoma of right lung C34.91 Pulmonary nodule R91.1
== END 2023-02-21 11:12 | disposition home or self-care (01) ==
PROVIDERS: PCP Family Medicine; Visit Provider Internal Medicine
DX: F17.200 Nicotine dependence, unspecified, uncomplicated (principal); C34.91 Malignant neoplasm of unspecified part of right bronchus or lung; R91.1 Solitary pulmonary nodule
CPT/HCPCS: 99213

== ENCOUNTER → 2023-02-21 10:20 | Outpatient (BNVA) | payer OTHER, SELFPAY | PROVIDERS: PCP Family Medicine; Visit Provider Internal Medicine | DX: R91.1 Solitary pulmonary nodule (principal); C34.91 Malignant neoplasm of unspecified part of right bronchus or lung; Z87.891 Personal history of nicotine dependence | CPT/HCPCS: 99212 ==

== ENCOUNTER 2023-02-27 10:01 | Outpatient (AMB) | payer OTHER, SELFPAY ==
[2023-02-27 10:17] VITALS: BP 110/80; PULSE 91; BMI 24.7
--- NOTE | 2023-02-27 10:17 | HO.NEPHOV ---
HPI HPI Comments History of Present Illness Details I had the privilege of seeing Mr. Kitchen in follow-up of. He has history of lung cancer and had undergone lobectomy with chemo and radiation. He also had a left tonsillar cancer. He has been closely followed with oncologist. He has history hypertension and has been on medications with good control. His renal functions have been stable. He is not on any RUFUS inhibitor, ARB, nonsteroidals or spironolactone. He is not a diabetic. He had no new complaints at the time of this office visit. 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) Alcohol intake: former Patient Tobacco Use Status: Former Tobacco user Tobacco use type: Cigarette service: No Current occupational status: disabled Vital Signs 02/27/23 10:17 Height 5 ft 3 in Weight 139 lb 6 oz BMI 24.7 BP 110/80 Blood Pressure Location Rt brachial Position Sitting Pulse 91 Pulse Source Pulse Oximeter Physical Exam Vital Signs: Last Vital Signs Pulse 91 02/27/23 10:17 BP 110/80 02/27/23 10:17 BMI result Body Mass Index 24.7 Const General: comfortable and no acute distress Orientation/consciousness: patient oriented x3 HEENT Head: Yes normocephalic Mouth: Normal oral and palatal mucosa present Eyes EOM: EOMs intact bilaterally Neck Neck: Yes supple Resp Auscultation: clear to auscultation bilaterally Cardio Jugular venous distension: no JVD Rate: regular rate GI Palpation (GI): Soft to palpation Auscultation: normal bowel sounds General: Yes no CVA tenderness Back/Spine/Pelvis Back: no CVA tenderness Skin General skin exam: no rashes or lesions noted Neuro General: patient oriented x3 and moves all extremities Extrem General: Yes no pedal edema Assessment & Plan Assessment & Plan (1) Renal cyst, left: Code(s): N28.1 - Cyst of kidney, acquired (2) Hypertension: Code(s): I10 - Essential (primary) hypertension Qualifiers: Hypertension type: primary hypertension Qualified Code(s): I10 - Essential (primary) hypertension Plan Mr. Kitchen has hypertension and is well controlled on current medication regimen. He has history of labile potassium levels but is normal now. He has a left renal cyst. He has no hematuria, proteinuria, flank pain. He maintains good hydration. He avoids nonsteroidals. I did not make any medication changes today. All questions were answered. Follow-up given. Orders: Orders Creatinine 02/27/23 N28.1 - Cyst of kidney, acquired Calcium 02/27/23 N28.1 - Cyst of kidney, acquired UA and rflx microscopic 02/27/23 N28.1 - Cyst of kidney, acquired Protein Creatinine Ratio, Ur 02/27/23 N28.1 - Cyst of kidney, acquired US renal BI 02/27/23 N28.1 - Cyst of kidney, acquired Blood Urea Nitrogen 02/27/23 N28.1 - Cyst of kidney, acquired Electrolytes 02/27/23 N28.1 - Cyst of kidney, acquired Coding Level of Care Code Est Pt Level 3 (31690) Diagnoses Renal cyst, left N28.1 Primary hypertension I10 Hypertension type: primary hypertension Results Reviewed Nephrology Results: Hgb 14.6 g/dl (14.0-18.0) 02/08/23 WBC 9.9 X10*3/uL (4.8-10.8) 02/08/23 Plt Count 264 X10*3/uL (160-400) 02/08/23 Sodium 141 mmol/L (135-145) 02/08/23 Potassium 4.6 mmol/L (3.3-5.1) 02/08/23 Chloride 105 mmol/L (96-108) 02/08/23 Carbon Dioxide 28 mmol/L (22-29) 02/08/23 BUN 14 mg/dL (9-16) 02/08/23 Creatinine 0.85 mg/dL (0.5-1.4) 02/08/23 Calcium 10.2 mg/dL (8.4-10.2) 02/08/23
== END 2023-02-27 10:59 | disposition home or self-care (01) ==
PROVIDERS: PCP Family Medicine; Visit Provider Internal Medicine Nephrology
DX: N28.1 Cyst of kidney, acquired (principal); I10 Essential (primary) hypertension
CPT/HCPCS: 99213

== ENCOUNTER → 2023-02-27 10:01 | Outpatient (BNVA) | payer OTHER, SELFPAY | PROVIDERS: PCP Family Medicine; Visit Provider Internal Medicine Nephrology | DX: N28.1 Cyst of kidney, acquired (principal); I10 Essential (primary) hypertension | CPT/HCPCS: 99212 ==

== ENCOUNTER 2023-03-23 07:56 | Outpatient (REF) | payer OTHER, SELFPAY ==
--- NOTE | ~2023-03-23 | CT_ITS ---
EXAMINATION: CT CHEST WITH CONTRAST CLINICAL INFORMATION: New right upper lung nodule. History of lung cancer. COMPARISON: 09/27/2022. TECHNIQUE: Multidetector volumetric CT imaging of the chest was obtained after the administration of 65 mL of Omnipaque 350 intravenous contrast without immediate adverse reactions. Axial MIP volume rendering provided. Sagittal and coronal reformatted images were obtained. This CT examination was performed using dose optimization techniques as appropriate, variously including the following: *Automated exposure control *Adjustment of mA and/or kV according to patient size (this includes techniques or standardized protocols for targeted exams where dose is matched to indication/reason for exam; i.e. extremities or head) *Use of iterative reconstruction technique DLP: 95 mGy-cm FINDINGS: LUNGS AND PLEURA: Chronic centrilobular emphysema and moderate paraseptal emphysema. Stable appearance of opacities of scarring at lung apices. Chronic postoperative volume loss of the right hemithorax from right middle lobectomy. The small focus of groundglass opacity of the posterior right upper lobe seen on 09/27/2022 has resolved. The somewhat nodular pleural-based opacity of the posterolateral right upper lobe measuring up to 0.4 cm transverse exhibits usp stability (image 64, series 5). There are several old nodules and micronodules in lower lobes, including 0.4 cm at lateral left lower lobe (134, series 5). No new lung nodule or mass. Linear opacities of mild atelectasis in lower lung zones. Chronic architectural distortion, peribronchial opacity and bronchiectasis in central right lower lobe, likely combination of postoperative change and radiation induced fibrosis. No pleural effusion or pneumothorax. CARDIOVASCULAR: The heart size is normal. No pericardial effusion. There is atherosclerotic calcification of coronary arteries. Pulmonary arteries are normal in caliber. There is atherosclerotic calcification of the thoracic aorta without aneurysm. MEDIASTINUM AND LOWER NECK: There is a right chest wall medication port with tip of IJ catheter located in the mid SVC. No mediastinal mass. The esophagus and thyroid gland are unremarkable. LYMPHATICS: No pathologic sized lymph nodes. UPPER ABDOMEN: The adrenal glands are normal. 3 cm simple cyst of the left kidney. No renal imaging follow-up is recommended for a simple cyst. Diffuse hepatic steatosis. SKELETAL AND CHEST WALL: Bones appear to be diffusely osteopenic. No acute or aggressive osseous lesion. Mild multilevel discovertebral degenerative change of the thoracic spine. CT/CT chest w IV con IMPRESSION: * Interval resolution of the small focus of groundglass attenuation previously seen in the posterior segment of the right upper lobe. No interval development of a suspicious-appearing lung nodule, lymphadenopathy or pleural effusion. * Chronic centrilobular and paraseptal emphysema. * Diffuse hepatic steatosis.
[2023-03-23] MEDS: iohexoL 350 MG/ML 75 ML INFUS..BTL 65 ML IV (08:36)
[2023-03-23 11:54] LABS: Creatinine POC 0.8 mg/dL (0.5-1.4); GFR POC > 60
== END 2023-03-23 07:57 | disposition home or self-care (01) ==
LOC: HO.CT 07:56
PROVIDERS: PCP Family Medicine; Visit Provider Internal Medicine Medical Oncology
DX: R91.1 Solitary pulmonary nodule (principal); C34.91 Malignant neoplasm of unspecified part of right bronchus or lung
CPT/HCPCS: 71260; 82565; Q9967

== ENCOUNTER 2023-04-18 10:15 | Outpatient (REF) | payer OTHER, SELFPAY ==
--- NOTE | ~2023-04-18 | US_ITS ---
EXAMINATION: US RETROPERITONEAL LIMITED (RENAL ONLY) CLINICAL INFORMATION: Cyst of kidney, acquired. COMPARISON: PET/CT 06/21/2017. TECHNIQUE: Real-time imaging of the kidneys. FINDINGS: RIGHT KIDNEY: 9.2 x 5.4 x 5.0 cm (SAG x AP x TRV). The kidney is normal in size, contour, and echogenicity. Renal cortical thickness is normal. No calculi or focal parenchymal lesions. No hydronephrosis. LEFT KIDNEY: 9.4 x 5.1 x 5.1 cm (SAG x AP x TRV). The kidney is normal in size, contour, and echogenicity. Renal cortical thickness is normal. No renal calculi or hydronephrosis. There is a 3.7 x 2.6 x 2.7 cm simple appearing cyst in the interpolar region, increased in size from 2.7 cm in 2018. US/US renal BI IMPRESSION: Increased size of an otherwise simple appearing cyst in the interpolar region of the left kidney. No suspicious features such as septations, mural irregularity/nodularity or internal vascularity. No nephrolithiasis or hydronephrosis.
== END 2023-04-18 10:16 | disposition home or self-care (01) ==
LOC: HO.US 10:15
PROVIDERS: PCP Family Medicine; Visit Provider Internal Medicine Nephrology
DX: N28.1 Cyst of kidney, acquired (principal)
CPT/HCPCS: 76775

== ENCOUNTER 2023-04-23 10:22 | Outpatient (AMB) | payer OTHER, SELFPAY ==
[2023-04-23 11:01] VITALS: BP 124/62; PULSE 86; O2SAT 96; BMI 24.3
--- NOTE | 2023-04-23 11:01 | MHC.OFFVIS ---
Intake Vital Signs 04/23/23 11:01 Height 5 ft 3 in Weight 137 lb BMI 24.3 BP 124/62 Blood Pressure Location Lt brachial Position Sitting Pulse 86 Pulse Source Pulse Oximeter Pulse Oximetry (%) 96 Oxygen Delivery Method Room Air Intake Visit Reasons: Pulmonary Nodules Intake Note: pt is here for follow up and states he is feeling good. Director Of Enrollment Required: Yes Director Of Enrollment Name: catherine Allergies sulfamethazine [SULFAMETHAZINE] Allergy (Intermediate, Verified 04/23/23 11:20) ITCHING Sulfamethazine Allergy (Unknown, Uncoded 04/23/23 11:20) itching Medication List - Last Reconciled 04/23/23 by Margi Joseph MD acetaminophen (Tylenol Extra Strength) 500 mg PO Q6H PRN amlodipine 5 mg PO DAILY cholecalciferol (vitamin D3) 50 mcg PO DAILY omeprazole 1 cap PO DAILY Do you need a note to return to daycare/school/sports/work: No HPI Pulmonary Nodules HPI Details 83 YEARS OLD COMORAN-SPEAKING VERY PLEASANT GENTLEMAN IS HERE FOR HIS ROUTINE FOLLOW-UP. HE HAS ONLY MILD INTERMITTENT COUGH DUE TO TICKLISH FEELING IN THE THROAT, WHICH CLEARS BY ITSELF. HE HAS NO WHEEZING OR SHORTNESS OF BREATH. HE IS NOT REQUIRING TO USE ANY INHALER. HE DOES USE OMEPRAZOLE 20 MG A DAY ONCE A DAY TO PREVENT GERD SYMPTOMS. HE ALSO HAS NO SIGNIFICANT NASAL CONGESTION OR POSTNASAL DRIP. HE QUIT SMOKING IN 2018. HE HAS HISTORY OF RIGHT MIDDLE LOBE LOBECTOMY, FOR ADENO CARCINOMA IN 2018, WITHOUT ANY RECURRENCE HE IS BEING FOLLOWED FOR A DENSITY IN THE RIGHT UPPER LOBE, AND HAS HAD CT SCAN RECENTLY. 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) Surgical History History of biopsy (~2015) History of lung biopsy (~2015) Port-A-Cath in place History of lobectomy of lung (~2017) History of dental surgery Family History Other No family history of cancer Social History Household Members: None Housing: Apartment Are you a primary lawn care technician to a significant other at home: No Do you presently have visiting nurse or other home services: Yes (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) Alcohol intake: former Patient Tobacco Use Status: Former Tobacco user Tobacco use type: Cigarette service: No Current occupational status: disabled Review of Systems Const All systems reviewed & are unremarkable except as noted in HPI and below Eyes Reports no additional complaints ENT Reports no additional complaints Card Denies chest pain, Denies syncope, Denies irregular heart rhythm and Denies leg edema Resp Reports as per HPI GI Denies no additional complaints Reports no additional complaints Musc Reports no additional complaints Skin/Breast Reports system reviewed and no additional complaints, except as documented Neuro Reports no additional complaints and Denies syncope Psych Reports no additional complaints Endo Reports no additional complaints Aller/Immun Reports no additional complaints Physical Exam Vital Signs: Last Vital Signs Pulse 86 04/23/23 11:01 BP 124/62 04/23/23 11:01 Pulse Ox 96 04/23/23 11:01 Oxygen Delivery Method Room Air 04/23/23 11:01 BMI result Body Mass Index 24.3 Const General: healthy appearing, comfortable, no acute distress, alert and awake Orientation/consciousness: patient oriented x3 HEENT Head: Yes normal to inspection General nose exam: No nasal polyps present and No nasal discharge present Face and sinus: Yes sinuses nontender Mouth: oropharynx normal Throat: Yes posterior oropharynx normal Eyes General: appearance normal, both eyes and all related structures Neck Neck: Yes normal visual inspection, Yes no lymphadenopathy, Yes trachea midline and Yes no JVD Thyroid: Thyroid normal Chest Chest palpation & inspection: normal inspection of the chest, normal palpation of entire chest wall, no tenderness and other (Has a sub cutaneous Jose David cath. in Rt pectoral area and Rt side of neck ) Resp Other: Percussion note is resonant, he has good breath sounds on both sides, no wheezes or rhonchi are heard Cardio Palpation: normal PMI Rate: regular rate Rhythm: regular rhythm Heart sounds: no gallops and no murmurs Peripheral pulses: Peripheral pulses 2+ throughout GI Palpation (GI): Soft to palpation, Tenderness to palpation present (GI), No hepatosplenomegaly present and Palpable mass present Auscultation: normal bowel sounds Back/Spine/Pelvis Thoracic/Lumbar Spine: thoracic and lumbar spine normal to inspection Skin General skin exam: no rashes or lesions noted Neuro General: patient oriented x3 and no focal motor deficits Cranial nerves: Yes CN's II-XII intact bilaterally Extrem General: Yes normal to inspection, Yes no clubbing, cyanosis or edema and Yes no calf tenderness Psych Speech and movement: Normal speech and movement present Results Reviewed Results Reviewed: CT SCAN OF THE CHEST ON03/23/2023 IMPRESSION: * Interval resolution of the small focus of groundglass attenuation previously seen in the posterior segment of the right upper lobe. No interval development of a suspicious-appearing lung nodule, lymphadenopathy or pleural effusion. * Chronic centrilobular and paraseptal emphysema. * Diffuse hepatic steatosis. Assessment & Plan Assessment & Plan (1) Adenocarcinoma of right lung: Onset Date: ~2014 Comment: (dx 01/2015 in [place] - s/p RML lobectomy 07/2017) with Davinci Procedure . No recurrence Code(s): C34.91 - Malignant neoplasm of unspecified part of right bronchus or lung Plan: PATIENT EXPLAINED THAT THE CURRENT CT SCAN DOES NOT SHOW ANY IS RECURRENCE OF HIS CANCER. (2) Pulmonary nodule: Comment: His CT scan of the chest on 10/07/2022 , SHOWED 1 CM NONSPECIFIC GROUND-GLASS DENSITY IN RIGHT UPPER LOBE. THE REPEAT CT SCAN 03/23/2023, SHOWS THAT THE DENSITY DESCRIBED ABOVE IS COMPLETELY RESOLVED Code(s): R91.1 - Solitary pulmonary nodule Plan: PATIENT WAS EXPLAINED AND REASSURED ABOUT THIS. (3) Smoker: Comment: HAS HAD PAST HISTORY OF SMOKING. BUT HE HAS QUIT COMPLETELY SINCE LAST YEAR. Code(s): F17.200 - Nicotine dependence, unspecified, uncomplicated Plan: PATIENT WAS COMMENDED FOR NOT SMOKING Coding Level of Care Code Est Pt Level 3 (44859) Diagnoses Adenocarcinoma of right lung C34.91 Pulmonary nodule R91.1 Smoker F17.200
== END 2023-04-23 11:22 | disposition home or self-care (01) ==
PROVIDERS: PCP Family Medicine; Visit Provider Internal Medicine
DX: C34.91 Malignant neoplasm of unspecified part of right bronchus or lung (principal); R91.1 Solitary pulmonary nodule; F17.200 Nicotine dependence, unspecified, uncomplicated
CPT/HCPCS: 99213

== ENCOUNTER → 2023-04-23 10:22 | Outpatient (BNVA) | payer OTHER, SELFPAY | PROVIDERS: PCP Family Medicine; Visit Provider Internal Medicine | DX: R91.1 Solitary pulmonary nodule (principal); C34.91 Malignant neoplasm of unspecified part of right bronchus or lung; F17.210 Nicotine dependence, cigarettes, uncomplicated | CPT/HCPCS: 99212 ==

== ENCOUNTER 2023-06-19 09:54 | Outpatient (AMB) | payer OTHER, SELFPAY ==
[2023-06-19 10:09] VITALS: BP 140/100; PULSE 94; O2SAT 97; BMI 24.5
--- NOTE | 2023-06-19 10:09 | HO.NEPHOV_ITS ---
HPI HPI Comments History of Present Illness Details I had the privilege of seeing Mr. Kitchen in follow-up of. He has history of lung cancer and had undergone lobectomy with chemo and radiation. He also had a left tonsillar cancer. He has been closely followed with oncologist. He has history hypertension and has been on medications with good control. His renal functions have been stable. He is not on any RUFUS inhibitor, ARB, nonsteroidals or spironolactone. He is not a diabetic. He still has a pulmonary nodule which is being followed up by his oncologist. He had no new complaints at the time of this office visit. 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) Surgical History History of biopsy (~2015) History of lung biopsy (~2015) Port-A-Cath in place History of lobectomy of lung (~2017) History of dental surgery Family History Other No family history of cancer Social History Household Members: None Housing: Apartment Are you a primary healthcare applications analyst to a significant other at home: No Do you presently have visiting nurse or other home services: Yes (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) Alcohol intake: former Patient Tobacco Use Status: Former Tobacco user Tobacco use type: Cigarette service: No Current occupational status: disabled Vital Signs 06/19/23 10:09 Height 5 ft 3 in Weight 138 lb 6 oz BMI 24.5 BP 140/100 H Blood Pressure Location Lt brachial Position Sitting Pulse 94 Pulse Source Pulse Oximeter Pulse Oximetry (%) 97 Oxygen Delivery Method Room Air Physical Exam Vital Signs: Last Vital Signs Pulse 94 06/19/23 10:09 BP 140/100 H 06/19/23 10:09 Pulse Ox 97 06/19/23 10:09 Oxygen Delivery Method Room Air 06/19/23 10:09 BMI result Body Mass Index 24.5 Const General: comfortable and no acute distress Orientation/consciousness: patient oriented x3 HEENT Head: Yes normocephalic Mouth: Normal oral and palatal mucosa present Eyes EOM: EOMs intact bilaterally Neck Neck: Yes supple Resp Auscultation: clear to auscultation bilaterally Cardio Jugular venous distension: no JVD Rate: regular rate GI Palpation (GI): Soft to palpation Auscultation: normal bowel sounds General: Yes no CVA tenderness Back/Spine/Pelvis Back: no CVA tenderness Skin General skin exam: no rashes or lesions noted Neuro General: patient oriented x3 and moves all extremities Extrem General: Yes no pedal edema Assessment & Plan Assessment & Plan (1) Hypertension: Code(s): I10 - Essential (primary) hypertension Qualifiers: Hypertension type: primary hypertension Qualified Code(s): I10 - Essential (primary) hypertension Plan Mr. Kitchen has hypertension and is well controlled on current medication regimen. He had history of labile potassium levels but is normal now. He has a left renal cyst which is asymptomatic. He has no hematuria, proteinuria, flank pain. He maintains good hydration. He avoids nonsteroidals. I did not make any medication changes today. All questions were answered. Follow-up given Orders: Orders Electrolytes Today I10 - Essential (primary) hypertension Creatinine Today I10 - Essential (primary) hypertension Protein Creatinine Ratio, Ur Today I10 - Essential (primary) hypertension Blood Urea Nitrogen Today I10 - Essential (primary) hypertension Coding Level of Care Code Est Pt Level 3 (64916) Diagnoses Primary hypertension I10 Hypertension type: primary hypertension Results Reviewed Nephrology Results: Hgb 14.3 g/dl (14.0-18.0) 03/30/23 WBC 7.6 X10*3/uL (4.8-10.8) 03/30/23 Plt Count 279 X10*3/uL (160-400) 03/30/23 Sodium 141 mmol/L (135-145) 03/30/23 Potassium 4.4 mmol/L (3.3-5.1) 03/30/23 Chloride 108 mmol/L (96-108) 03/30/23 Carbon Dioxide 27 mmol/L (22-29) 03/30/23 BUN 15 mg/dL (9-16) 03/30/23 Creatinine 0.93 mg/dL (0.5-1.4) 03/30/23 Calcium 10.3 mg/dL (8.4-10.2) H 03/30/23 Renal US 04/18/23
== END 2023-06-19 10:34 | disposition home or self-care (01) ==
PROVIDERS: PCP Family Medicine; Visit Provider Internal Medicine Nephrology
DX: I10 Essential (primary) hypertension (principal)
CPT/HCPCS: 99213

== ENCOUNTER → 2023-06-19 09:54 | Outpatient (BNVA) | payer OTHER, SELFPAY | PROVIDERS: PCP Family Medicine; Visit Provider Internal Medicine Nephrology | DX: I10 Essential (primary) hypertension (principal) | CPT/HCPCS: 99212 ==

== ENCOUNTER 2023-10-03 08:51 | Outpatient (REF) | payer OTHER, SELFPAY ==
[2023-10-03 11:00] LABS: Appearance Urine Turbid; Color Urine Yellow; Glucose Urine UA Negative (Negative); Leukocyte Esterase Urine Large (3+) (Negative); Nitrite Urine Positive (Negative); UMIC TRIGGER UA YES; Urine Blood Small (1+) (Negative); Urine Ketones Negative (Negative); Urine Protein Trace mg/dL (Neg-Trace)
[2023-10-03 11:16] LABS: Bacteria Urine 4+ (None Seen); Hyaline Casts Urine 0-2 /LPF (0-2); RBC Urine 0-2 /HPF (0-2); Squamous Epithelial Cell Urine 0-2 /HPF (0-2); WBC Urine >50 /HPF (0-5)
[2023-10-03 11:33] LABS: Anion Gap 14 (12-20); Blood Urea Nitrogen 11 mg/dL (9-16); Calcium 10.1 mg/dL (8.4-10.2); Carbon Dioxide 26 mmol/L (22-29); Chloride 106 mmol/L (96-108); Estimated Glomerular Filt Rate > 60; Potassium 4.1 mmol/L (3.3-5.1); Sodium 142 mmol/L (135-145)
[2023-10-03 11:50] LABS: Creatinine Urine 85.21 mg/dL; Total Protein Urine Random 17 mg/dL (<12)
== END 2023-10-03 08:52 | disposition home or self-care (01) ==
LOC: HO.HHCL 08:51
PROVIDERS: Visit Provider Internal Medicine Nephrology
DX: I10 Essential (primary) hypertension (principal); N28.1 Cyst of kidney, acquired
CPT/HCPCS: 36415; 80051; 81001; 81003; 82310; 82565; 82570; 84156; 84520

== ENCOUNTER 2023-10-16 10:27 | Outpatient (AMB) | payer OTHER, SELFPAY ==
--- NOTE | 2023-10-16 10:55 | HO.NEPHOV_ITS ---
Vital Signs 10/16/23 10:56 Height 5 ft 3 in Weight 136 lb 2 oz BMI 24.1 BP 140/100 H Blood Pressure Location Lt brachial Position Sitting Pulse 95 Pulse Source Pulse Oximeter Pulse Oximetry (%) 98 Oxygen Delivery Method Room Air Intake Visit Reasons: 4-5 mon follow up/ Conf Poultry Processing Supervisor Required: Yes Poultry Processing Supervisor Services: Poultry Processing Supervisor Present Poultry Processing Supervisor Name: Vivian [id number] Accompanied by: Self / Same As Patient Allergies sulfamethazine [SULFAMETHAZINE] Allergy (Intermediate, Verified 10/16/23 10:59) ITCHING HPI Comments Details: I had the privilege of seeing Mr. Kitchen in follow-up of. He has history of lung cancer and had undergone lobectomy with chemo and radiation. He also had a left tonsillar cancer. He has been closely followed with oncologist. He has history hypertension and has been on medications with good control. His renal functions have been stable. He is not on any RUFUS inhibitor, ARB, nonsteroidals or spironolactone. He is not a diabetic. He still has a pulmonary nodule which is being followed up by his oncologist. He had no new complaints at the time of this office visit. 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) Surgical History History of biopsy (~2016) History of lung biopsy (~2015) Port-A-Cath in place History of lobectomy of lung (~2017) History of dental surgery Family History Other No family history of cancer Social History Household Members: None Housing: Apartment Are you a primary child care centre director to a significant other at home: No Do you presently have visiting nurse or other home services: Yes (senior 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 specialist) Alcohol intake: former Patient Tobacco Use Status: Former Tobacco user Tobacco use type: Cigarette service: No Current occupational status: disabled Physical Exam Vital Signs: Last Vital Signs Pulse 95 10/16/23 10:56 BP 140/100 H 10/16/23 10:56 Pulse Ox 98 10/16/23 10:56 Oxygen Delivery Method Room Air 10/16/23 10:56 BMI result Body Mass Index 24.1 Const General: comfortable and no acute distress Orientation/consciousness: patient oriented x3 HEENT Head: Yes normocephalic Mouth: Normal oral and palatal mucosa present Eyes EOM: EOMs intact bilaterally Neck Neck: Yes supple Resp Auscultation: clear to auscultation bilaterally Cardio Jugular venous distension: no JVD Rate: regular rate GI Palpation (GI): Soft to palpation Auscultation: normal bowel sounds General: Yes no CVA tenderness Back/Spine/Pelvis Back: no CVA tenderness Skin General skin exam: no rashes or lesions noted Neuro General: patient oriented x3 and moves all extremities Extrem General: Yes no pedal edema Results Reviewed Nephrology Results: Hgb 14.1 g/dl (14.0-18.0) 10/01/23 WBC 7.5 X10*3/uL (4.8-10.8) 10/01/23 Plt Count 263 X10*3/uL (160-400) 10/01/23 Sodium 142 mmol/L (135-145) 10/03/23 Potassium 4.1 mmol/L (3.3-5.1) 10/03/23 Chloride 106 mmol/L (96-108) 10/03/23 Carbon Dioxide 26 mmol/L (22-29) 10/03/23 BUN 11 mg/dL (9-16) 10/03/23 Creatinine 0.93 mg/dL (0.5-1.4) 10/03/23 Calcium 10.1 mg/dL (8.4-10.2) 10/03/23 Urine Protein Trace mg/dL (Neg-Trace) 10/03/23 Urine Creatinine 85.21 mg/dL 10/03/23 Protein/Creatinin Ratio 0.20 (<0.2) 10/03/23 Renal US 04/18/23 Assessment & Plan Assessment & Plan (1) Hypertension: Code(s): I10 - Essential (primary) hypertension Category: Medical Qualifiers: Hypertension type: primary hypertension Qualified Code(s): I10 - Essential (primary) hypertension Plan Mr. Kitchen has hypertension and is well controlled on current medication regimen. He had history of labile potassium levels but is normal now. He has a left renal cyst which is asymptomatic. He has no hematuria, proteinuria, flank pain. He maintains good hydration. He avoids nonsteroidals. I did not make any medication changes today. All questions were answered. Follow-up given Orders: Orders Blood Urea Nitrogen 6 Months I10 - Essential (primary) hypertension Creatinine 6 Months I10 - Essential (primary) hypertension Electrolytes 6 Months I10 - Essential (primary) hypertension Calcium 6 Months I10 - Essential (primary) hypertension Coding Level of Care Code Est Pt Level 4 (69144) Diagnoses Primary hypertension I10 Hypertension type: primary hypertension
[2023-10-16 10:56] VITALS: BP 140/100; PULSE 95; O2SAT 98; BMI 24.1
== END 2023-10-16 11:20 | disposition home or self-care (01) ==
PROVIDERS: PCP Family Medicine; Visit Provider Internal Medicine Nephrology
DX: I10 Essential (primary) hypertension (principal)
CPT/HCPCS: 99214

== ENCOUNTER → 2023-10-16 10:27 | Outpatient (BNVA) | payer OTHER, SELFPAY | PROVIDERS: PCP Family Medicine; Visit Provider Internal Medicine Nephrology | DX: I10 Essential (primary) hypertension (principal); Z85.118 Personal history of other malignant neoplasm of bronchus and lung | CPT/HCPCS: 99212 ==

== ENCOUNTER 2023-10-22 10:26 | Outpatient (AMB) | payer OTHER, SELFPAY ==
[2023-10-22 10:38] VITALS: BP 130/70; PULSE 83; O2SAT 98; BMI 24.0
--- NOTE | 2023-10-22 10:38 | A.OFFVIS_ITS ---
Vital Signs 10/22/23 10:38 Height 5 ft 3 in Weight 135 lb 9.349 oz BMI 24.0 BP 130/70 Blood Pressure Location Lt brachial Position Sitting Pulse 83 Pulse Source Pulse Oximeter Pulse Oximetry (%) 98 Oxygen Delivery Method Room Air Intake Visit Reasons: Pulmonary Nodules Intake Note: pt is here for follow up and states he is feeling well Bolt Machine Operator Required: Yes Bolt Machine Operator Name: [id number] bry Allergies sulfamethazine [SULFAMETHAZINE] Allergy (Intermediate, Verified 10/22/23 10:51) ITCHING Medication List - Last Reconciled 10/22/23 by Margi Joseph MD acetaminophen (Tylenol Extra Strength) 500 mg PO Q6H PRN amlodipine 5 mg PO DAILY cholecalciferol (vitamin D3) 50 mcg PO DAILY omeprazole 1 cap PO DAILY Do you need a note to return to daycare/school/sports/work: No HPI HPI Pulmonary Nodules: Details: 83 YEARS OLD ANGOLAN-SPEAKING VERY PLEAS ANT GENTLEMAN IS HERE FOR HIS ROUTINE FOLLOW-UP. HE HAS ONLY MILD INTERMITTENT COUGH DUE TO TICKLISH FEELING IN THE THROAT, WHICH CLEARS BY ITSELF. HE HAS NO WHEEZING OR SHORTNESS OF BREATH. HE IS NOT REQUIRING TO USE ANY INHALER. HE DOES USE OMEPRAZOLE 20 MG A DAY ONCE A DAY TO PREVENT GERD SYMPTOMS. HE ALSO HAS NO SIGNIFICANT NASAL CONGESTION OR POSTNASAL DRIP. HE QUIT SMOKING IN 2018. HE HAS HISTORY OF RIGHT MIDDLE LOBE LOBECTOMY, FOR ADENO CARCINOMA IN 2018, WITHOUT ANY RECURRENCE HE IS BEING FOLLOWED FOR A DENSITY IN THE RIGHT UPPER LOBE . 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) Surgical History History of biopsy (~2015) History of lung biopsy (~2015) Port-A-Cath in place History of lobectomy of lung (~2017) History of dental surgery Family History Other No family history of cancer Social History Household Members: None Housing: Apartment Are you a primary transitional care nurse to a significant other at home: No Do you presently have visiting nurse or other home services: Yes ([employer]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) Alcohol intake: former Patient Tobacco Use Status: Former Tobacco user Tobacco use type: Cigarette service: No Current occupational status: disabled Review of Systems Const All systems reviewed & are unremarkable except as noted in HPI and below Eyes Reports no additional complaints ENT Reports no additional complaints Card Denies chest pain, Denies syncope, Denies irregular heart rhythm and Denies leg edema Resp Reports as per HPI GI Denies no additional complaints Reports no additional complaints Musc Reports no additional complaints Skin/Breast Reports system reviewed and no additional complaints, except as documented Neuro Reports no additional complaints and Denies syncope Psych Reports no additional complaints Endo Reports no additional complaints Aller/Immun Reports no additional complaints Physical Exam Vital Signs: Last Vital Signs Pulse 83 10/22/23 10:38 BP 130/70 10/22/23 10:38 Pulse Ox 98 10/22/23 10:38 Oxygen Delivery Method Room Air 10/22/23 10:38 BMI result Body Mass Index 24.0 Const General: healthy appearing, comfortable, no acute distress, alert and awake Orientation/consciousness: patient oriented x3 HEENT Head: Yes normal to inspection General nose exam: No nasal polyps present and No nasal discharge present Face and sinus: Yes sinuses nontender Mouth: oropharynx normal Throat: Yes posterior oropharynx normal Eyes General: appearance normal, both eyes and all related structures Neck Neck: Yes normal visual inspection, Yes no lymphadenopathy, Yes trachea midline and Yes no JVD Thyroid: Thyroid normal Chest Chest palpation & inspection: normal inspection of the chest, normal palpation of entire chest wall, no tenderness and other (Has a sub cutaneous Jose David cath. in Rt pectoral area and Rt side of neck ) Resp Other: Percussion note is resonant, he has good breath sounds on both sides, no wheezes or rhonchi are heard Cardio Palpation: normal PMI Rate: regular rate Rhythm: regular rhythm Heart sounds: no gallops and no murmurs Peripheral pulses: Peripheral pulses 2+ throughout GI Palpation (GI): Soft to palpation, Tenderness to palpation present (GI), No hepatosplenomegaly present and Palpable mass present Auscultation: normal bowel sounds Back/Spine/Pelvis Thoracic/Lumbar Spine: thoracic and lumbar spine normal to inspection Skin General skin exam: no rashes or lesions noted Neuro General: patient oriented x3 and no focal motor deficits Cranial nerves: Yes CN's II-XII intact bilaterally Extrem General: Yes normal to inspection, Yes no clubbing, cyanosis or edema and Yes no calf tenderness Psych Speech and movement: Normal speech and movement present Results Reviewed Results Reviewed: CT SCAN OF CHEST 03/23/23 IMPRESSION: * Interval resolution of the small focus of groundglass attenuation previously seen in the posterior segment of the right upper lobe. No interval development of a suspicious-appearing lung nodule, lymphadenopathy or pleural effusion. * Chronic centrilobular and paraseptal emphysema. * Diffuse hepatic steatosis. Assessment & Plan Assessment & Plan (1) Adenocarcinoma of right lung: Onset Date: ~2014 Comment: (dx 01/2015 in [place] - s/p RML lobectomy 07/2017) with Davinci Procedure . No recurrence Code(s): C34.91 - Malignant neoplasm of unspecified part of right bronchus or lung Category: Medical Plan: CONTINUE FOLLOW-UP WITH ONCOLOGY. (2) Smoker: Comment: HAS HAD PAST HISTORY OF SMOKING. BUT HE HAS QUIT COMPLETELY SINCE 2022 Code(s): F17.200 - Nicotine dependence, unspecified, uncomplicated Category: Social Hx Plan: COMMENDED FOR NOT SMOKING Coding Level of Care Code Est Pt Level 3 (30686) Diagnoses Adenocarcinoma of right lung C34.91 Smoker F17.200
== END 2023-10-22 10:52 | disposition home or self-care (01) ==
PROVIDERS: PCP Family Medicine; Visit Provider Internal Medicine
DX: C34.91 Malignant neoplasm of unspecified part of right bronchus or lung (principal); F17.200 Nicotine dependence, unspecified, uncomplicated
CPT/HCPCS: 99213

== ENCOUNTER → 2023-10-22 10:26 | Outpatient (BNVA) | payer OTHER, SELFPAY | PROVIDERS: PCP Family Medicine; Visit Provider Internal Medicine | DX: C34.91 Malignant neoplasm of unspecified part of right bronchus or lung (principal); F17.200 Nicotine dependence, unspecified, uncomplicated | CPT/HCPCS: 99212 ==

== ENCOUNTER 2023-11-13 08:14 | Outpatient (REF) | payer OTHER, SELFPAY ==
--- NOTE | ~2023-11-13 | CT_ITS ---
EXAMINATION: CT CHEST WITH CONTRAST CLINICAL INFORMATION: Non-small cell lung carcinoma. Follow-up COMPARISON: CT dated March 23, 2023 TECHNIQUE: Multidetector volumetric CT imaging of the chest was obtained after the administration of 85 mL of Omnipaque 350 intravenous contrast without immediate adverse reactions. Axial MIP volume rendering provided. Sagittal and coronal reformatted images were obtained. This CT examination was performed using dose optimization techniques as appropriate, variously including the following: *Automated exposure control *Adjustment of mA and/or kV according to patient size (this includes techniques or standardized protocols for targeted exams where dose is matched to indication/reason for exam; i.e. extremities or head) *Use of iterative reconstruction technique DLP: 85 mGy-cm FINDINGS: Submitted for interpretation on 01/23/2024 LUNGS: Post surgical/treatment changes, right lung extending from the right perihilar into the right minor and major fissures. Peribronchial septal thickening and confluent pulmonary groundglass extending from the right pulmonary perihilum into the periphery. Patchy pulmonary groundglass in the periphery of the right lung. Nonspecific 3 mm groundglass nodules in the periphery of the left lung. Paraseptal emphysematous changes, both upper lobes. Volume loss, right lung. MEDIASTINUM: No gross lymphadenopathy. Calcified plaques throughout the thoracic aorta wall extending branches and the coronary arteries. No aneurysm or dissection, thoracic aorta. No pericardial effusion. No intraluminal filling defects within the main pulmonary arteries. PLEURA: No pleural effusion. No pneumothorax. AXILLA: No lymphadenopathy. Right-sided Port-A-Cath with tip ending at the SVC.. UPPER ABDOMEN: Small and hernia. Decreased enhancement pattern of the liver parenchyma. 2.5 cm exophytic fluid density, anterior midportion left kidney. OSSEOUS STRUCTURES: No lytic or blastic lesions. Multilevel spondylosis. No acute fracture or gross listhesis. CT/CT chest w IV con IMPRESSION: New areas of pulmonary patchy groundglass, right lung. Superimposed acute inflammatory versus infectious process cannot be excluded. Stable posttreatment changes, right lung. Fleischner guidelines were followed. Electronically signed by: Terrell Henry MD 01/23/2024 09:13 AM EDT
[2023-11-14 14:16] LABS: Creatinine POC 0.9 mg/dL (0.5-1.4); GFR POC 60
== END 2023-11-13 08:15 | disposition home or self-care (01) ==
LOC: HO.CT 08:14
PROVIDERS: PCP Family Medicine; Visit Provider Internal Medicine Medical Oncology
DX: C34.91 Malignant neoplasm of unspecified part of right bronchus or lung (principal)
CPT/HCPCS: 71260; 82565

== ENCOUNTER → 2023-11-13 08:16 | Outpatient (BNV) | payer OTHER, SELFPAY | PROVIDERS: PCP Family Medicine; Visit Provider Radiology Diagnostic Radiology | DX: C34.91 Malignant neoplasm of unspecified part of right bronchus or lung (principal) | CPT/HCPCS: 71260 ==

== ENCOUNTER 2024-04-18 15:44 | Outpatient (REF) | payer OTHER, SELFPAY ==
--- NOTE | ~2024-04-18 | CT_ITS ---
CLINICAL HISTORY: Follow-up on lung cancer. CT chest with contrast Comparison: CT/MA/SR - CT CHEST W IV CON - 11/13/23 08:55 EDT Findings: No cardiomegaly or pericardial effusion. Moderate atherosclerotic disease of the coronary arteries. No mediastinal adenopathy. No discrete thyroid lesion. Postsurgical changes in the right perihilar region with right-sided volume loss, chronic. Mild to moderate centrilobular emphysema with prominent paraseptal blebs of the apices. Reference axial image 77, there is an 11 mm ground-glass nodule, new from prior. Reference axial image 57 within the right upper lobe, there is a new ground-glass nodule medially. Chronic scattered regions of linear and ground-glass density are also present. There is a new 3 mm nodule in the subpleural right lower lobe on axial 122. No effusion. No pneumothorax. Severe hepatic steatosis. Impression: New ground-glass and solid nodules. Six-month follow-up CT recommended. Chronic changes as detailed. This document has been electronically signed by: Adalid Meade MD on 04/21/2024 09:33:59
[2024-04-18] MEDS: iohexoL 350 MG/ML 100 ML INFUS..BTL IV (16:19)
--- OUTSIDE RECORDS SUMMARY | 2024-04-18 16:34 | XMS_ITS | Clinical Summary ---
Author Organization [facility] Address [address] [place] [address] Phone Care Team Providers Care Ict Systems Test Engineer Name Role Phone Shelley Orellana MD Primary Care Provider [phone] Allergies Active Allergy Reactions Criticality Noted Date Comments Sulfa Antibiotics 03/16/2022 Medications Acetaminophen Extra Strength 500 MG tablet Take 2 tablets by mouth every 8 (eight) hours if needed 02/06/2022 Active cholecalciferol (VITAMIN D-3) 50 MCG (1999 UT) tablet Take 1 tablet by mouth 1 (one) time each day 03/08/2022 Active amLODIPine (NORVASC) 5 MG tablet Take 5 mg by mouth 1 (one) time each day 03/07/2022 Active omeprazole (PriLOSEC) [address] capsule Take 1 capsule by mouth 1 (one) time each day 03/07/2022 Active Active Problems Problem Noted Date Diagnosed Date Hyperkalemia 03/16/2022 Hypertension 03/16/2022 Social History Tobacco Use Types Packs/Day Years Used Date Smoking Tobacco: Some Days Cigarettes Smokeless Tobacco: Never Tobacco Cessation:Ready to Q uit: Not Asked; Counseling Given: Not Answered Alcohol Use Standard Drinks/Week Comments Yes 0 (1 standard drink = 0.6 oz pur e alcohol) Sex and Gender Information Value Date Recorded Sex Assigned at Not on file Legal Sex Male 1:36 PM EST Gender Identity Not on file Sexual Orientation Not on file Last Filed Vital Signs Vital Sign Reading Time Taken Comments Blood Pressure 148/74 03/20/2023 1:29 PM EST Pulse 91 03/20/2023 1:29 PM EST Temperature - - Respiratory Rate - - Oxygen Saturation - - Inhaled Oxygen Concentration - - Weight 63.5 kg (140 lb) 03/20/2023 1:29 PM EST Height - - Body Mass Index - - Plan of Treatment Health Maintenance Due Date Last Done Comments Influenza Vaccine (#1) 2023 04/23/2017 Pneumococcal Vaccine: 65+ Years Completed 09/19/2022, 10/12/2021 Hepatitis B Vaccine Aged Out No longe r eligible based on patient's age to complete this topic Insurance * Guarantor: Jitendra Dotson Account Type Relation to Patient Date of Phone Billing Address Personal/Family Self [address] ([id number]) [facility] ([id number]) Care Teams Ict Systems Test Engineer Relationship Specialty Start Date End Date Shelley Orellana MD PCP - General Family Medicine 02/28/22
--- OUTSIDE RECORDS SUMMARY | 2024-04-18 16:34 | XMS_ITS | Encounter Summary ---
Author Organization [employer] Address [address] [facility] 7t [place] [address] Care Team Providers Care Smoke Chaser Name Role Phone Shelley Orellana MD Primary Care Provider [phone] Reason for Visit * Reason Onset Date Comments Med Refill 12/06/2022 Encounter Details Date Type Department Care Team ([facility] st Contact Info) Description 12/06/2022 Telephone [facility] PEDS [address] [place] [address] Shelley Orellana MD [address] [place] [address] Med Refill Social History Tobacco Use Types Packs/Day Years Used Date Smoking Tobacco: Every Day Cigarettes Passive Smoke Exposure: Never Smokeless Tobacco: Never Alcohol Use Standard Drinks/Week Comments Never 0 (1 standard drink = 0.6 oz pur e alcohol) Depression Answer Date Recorded Patient Health Questionnaire-9 Score 0 05/22/2022 Depression Answer Date Recorded Patient Health Questionnaire-2 Score 0 05/22/2022 Sex and Gender Information Value Date Recorded Sex Assigned at Male 01/23/2022 10:37 AM EDT Legal Sex Male 10:37 AM EDT Gender Identity Male 01/23/2022 10:37 AM EDT Sexual Orientation Straight 01/23/2022 10 :37 AM EDT documented as of this encounter Miscellaneous Notes * Telephone Encounter - Alba Padilla LPN - 12/06/2022 9:55 AM EDT Patient should have a refill medication was sent to [facility] on 09/05/22 #90 with 1 refill. * Telephone Encounter - Reema Hayes - 12/06/2022 9:44 AM EDT Tc from pt requesting med refill for medication omeprazole (PriLOSEC) [address] capsule. documented in this encounter Plan of Treatment Not on file documented as of this encounter Visit Diagnoses Not on filedocumented in this encounter Additional Health Concerns Assessment Noted Time PHQ-9 Depression Total Score: 0 05/22/19 23 10:16 AM EST documented as of this encounter Care Teams Smoke Chaser Relationship Specialty Start Date End Date Shelley Orellana MD [address] [place] [address] PCP - General Family Medicine 07/06/21 documented as of this encounter
--- OUTSIDE RECORDS SUMMARY | 2024-04-18 16:34 | XMS_ITS | Clinical Summary ---
Author Organization [employer] Address [address] 7[address] [place] [address] Care Team Providers Care Professional Fighter Name Role Phone Shelley Orellana MD Primary Care Provider [phone] Allergies Active Allergy Reactions Criticality Noted Date Comments Sulfa Antibiotics 03/16/2022 Medications omeprazole (PriLOSEC) [address] capsule TAKE 1 CAPSULE BY ORAL ROUTE EVERY DAY BEFORE A MEAL 90 capsule 1 07/06/2023 Active cholecalciferol (Vitamin D-3) 50 MCG (1999 UT) tablet TAKE 1 TABLET BY MOUTH EVERY DAY 120 tablet 3 07/06/2023 Active amLODIPine (Norvasc) 5 MG tablet TAKE 1 TABLET BY MOUTH ONCE EVERY DAY 90 tablet 1 10/24/2023 Active Acetaminophen Extra Strength 500 MG tablet TAKE 2 TABLET BY ORAL ROUTE UP TO EVERY 8 HOURS FOR PAIN NEEDED 90 tablet 11/14/2023 Active Active Problems Problem Noted Date Diagnosed Date Rhinosinusitis 05/30/2022 Assessment & Plan (05/30/2022 10:36 AM EST): Symptoms c/w rhinosinutis, at moment will send decongestant an f/up as needed Hyperkalemia 03/16/2022 Hypertension 03/16/2022 Assessment & Plan (03/29/2023 9:31 AM EST): Controlled. Continue current med regimen. F/up in 6 months. Lab Results Component Value Date CREATININE 0.80 02/17/2022 Assessment & Plan (09/19/2022 4:15 PM EDT): Well controlled. Will follow up in 6 months. Assessment & Plan (05/30/2022 10:37 AM EST): Controlled following AAFP guidelines, target < 140/90 mmHg. 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 Immunizations Name Administration Dates Next Due Influenza High-dose Quadriva lent Preservative Free 01/06/2022 Influenza injectable quadriv alent IIV4 with preservative 04/23/2017 Influenza injectable quadriv alent preservative free 03/23/2023 Moderna Covid-19 Vaccine 12+ 04/22/2021,07/27/19 21,06/28/2020 Moderna Covid-19 Vaccine 6+ Bivalent 03/13/2022 Pneumococcal Conjugate PCV 13 10/12/2021 Pneumococcal Polysaccharide PPSV23 09/19/2022 Tdap 03/23/2023 Social History Tobacco Use Types Packs/Day Years Used Date Smoking Tobacco: Former Cigarettes Passive Smoke Exposure: Never Smokeless Tobacco: Never Tobacco Cessation:Counseling Given: Not Answered Alcohol Use Standard Drinks/Week Comments Never 0 (1 standard drink = 0.6 oz pur e alcohol) Depression Answer Date Recorded Patient Health Questionnaire-9 Score 0 05/22/2022 Housing Stability Answer Date Recorded What is your housing situation today? I have bennett ralph 01/31/[address] you li ve. Do you have problems with any of the following? None of the above 01/31/2023 Food Insecurity Answer Date Recorded Within the past 12 months, y ou worried that your food would run out before you got money to buy more: Never True 01/31/2023 Within the past 12 months,th e food you bought just didn't last and you didn't have enough money to get more: Never True 10/2022 Transportation Answer Date Recorded In the past 12 months, has l ack of transportation kept you from medical appts, meetings, work or from getting things needed for daily living? No 01/31/2023 Utilities Answer Date Recorded In the past 12 months, has t he electric, gas, oil or water company threatened to shut off services in your home? No 01/31/2023 Depression Answer Date Recorded Patient Health Questionnaire-2 Score 0 05/22/2022 Sex and Gender Information Value Date Recorded Sex Assigned at Male 01/23/2022 10:37 AM EDT Legal Sex Male 10:37 AM EDT Gender Identity Male 01/23/2022 10:37 AM EDT Sexual Orientation Straight 01/23/2022 10 :37 AM EDT Last Filed Vital Signs Vital Sign Reading Time Taken Comments Blood Pressure 136/80 03/23/2023 10:30 AM EST Pulse 84 03/23/2023 10:23 AM EST Temperature 36.2 ??C (97.1 ??F) 03/23/2023 10:[address] Respiratory Rate 18 03/23/2023 10:23 AM EST Oxygen Saturation 98% 03/23/2023 10:23 AM EST Inhaled Oxygen Concentration - - Weight 63 kg (139 lb) 03/23/2023 10:23 AM EST Height 161 cm (5' 3.39 ) 03/23/2023 10:23 AM EST Body Mass Index 24.32 03/23/2023 10:23 AM EST Plan of Treatment Health Maintenance Due Date Last Done Comments Alcohol/Substance Use Screening 1952 Zoster Vaccines (1 of 2) 01/16/1992 RSV Patients and Patients Aged 60 years or older (1 - 1-dose 75+ series) 2017 Depression Screening 05/22/2023 05/22/2022, 05/22/19 SDOH Screening 09/20/2023 09/19/2022 COVID-19 Vaccine ( season) 2023 03/13/2022, 04/22/2021, 07/26/2020, Additional history exists Influenza Vaccine (#1) 2023 , 01/06/2022, 04/23/2017 Tobacco Screening 03/23/2024 03/23/2023 Lipid Panel 06/24/2025 06/24/2020 DTaP/Tdap/Td Vaccines (2 - Td or Tdap) 03/23/2033 03/23/2023 Pneumococcal Vaccine: 65+ Years Completed 09/19/2022, 10/12/2021 HIB Vaccines Aged Out No longer eligi ble based on patient's age to complete this topic HPV Vaccines Aged Out No longer eligi ble based on patient's age to complete this topic Hepatitis A Vaccines Aged Out No long er eligible based on patient's age to complete this topic Hepatitis B Vaccines Aged Out No long er eligible based on patient's age to complete this topic IPV Vaccines Aged Out No longer eligi ble based on patient's age to complete this topic Meningococcal Vaccine Aged Out No fredi minerva eligible based on patient's age to complete this topic RSV under 20 months Aged Out No longe r eligible based on patient's age to complete this topic Rotavirus Vaccines Aged Out No longer eligible based on patient's age to complete this topic Procedures Procedure Name Priority Date/Time Associated Diagnosis Comments LIPID PANEL, STANDARD Routine 06/24/2020 8:41 AM EDT from Last 3 Months or Most Recently Relevant to Health Maintenance Results * (ABNORMAL) LIPID PANEL, STANDARD (06/24/2020 8:41 AM EDT) Chol/HDLC Ratio 3.0 <5.0 (calc) [facility] Cholesterol, Total 210(H) <200 mg/dL [facility] HDL Cholesterol 71 > OR = 40 mg/dL [facility] LDL Cholesterol 122(H) mg/dL (calc) [facility] Comment: Reference range: <100 ?? Desirable range <100 mg/dL for primary prevention; ?? <70 mg/dL for patients with CHD or diabetic patients ?? with > or = 2 CHD risk factors. ?? LDL-C is now calculated using the Juan Luis ?? calculation, which is a validated novel method providing ?? better accuracy than the Friedewald equation in the ?? estimation of LDL-C. ?? Declan HALL et al. ARCHIE. 2013;310(19): 7635-2981 ?? (http://education.dot429.[employer]/faq/GQP700) Non-HDL Cholesterol 139(H) <130 mg/dL (calc) [facility] Comment: For patients with diabetes plus 1 major ASCVD risk ?? factor, treating to a non-HDL-C goal of <100 mg/dL ?? (LDL-C of <70 mg/dL) is considered a therapeutic ?? option. Triglycerides 80 <150 mg/dL [facility] 06/24/2020 8:41 AM EDT us Shelley Orellana MD LAB BLOOD ORDERABLES Final Re sult [facility] [address] [place] [address], from Last 3 Months or Most Recently Relevant to Health Maintenance Insurance [facility] Care Teams Professional Fighter Relationship Specialty Start Date End Date Shelley Orellana MD [address] [place] [id number] PCP - General Family Medicine 07/06/21
== END 2024-04-18 15:45 | disposition home or self-care (01) ==
LOC: HO.CT 15:44
PROVIDERS: PCP Family Medicine; Visit Provider Internal Medicine Medical Oncology
DX: C34.91 Malignant neoplasm of unspecified part of right bronchus or lung (principal)
CPT/HCPCS: 71260; Q9967

== ENCOUNTER → 2024-04-18 15:46 | Outpatient (BNV) | payer OTHER, SELFPAY | PROVIDERS: PCP Family Medicine; Visit Provider Radiology Vascular & Interventional Radiology | DX: R91.8 Other nonspecific abnormal finding of lung field (principal) | CPT/HCPCS: 71260 ==

== ENCOUNTER 2024-04-23 09:58 | Outpatient (REF) | payer OTHER, SELFPAY ==
--- OUTSIDE RECORDS SUMMARY | 2024-04-23 11:48 | XMS_ITS | Clinical Summary ---
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 I have bennett rosas 01/31/[address] you li [...] series) 2017 Depression Screening 05/22/2023 05/22/2022, 05/22/19 23 SDOH Screening 09/20/2023 09/19/2022 COVID-19 Vaccine ( season) 2023 03/13/2022, 04/22/2021, 07/26/2020, Additional history exists Influenza Vaccine (#1) 2023 , 01/06/2022, 04/23/2017 Tobacco Screening 03/23/2024 03/23/2023 Lipid Panel 06/24/2025 06/24/2020 DTaP/Tdap/Td Vaccines (2 - Td or Tdap) 03/23/2033 03/23/2023 Pneumococcal Vaccine: 50+ Years Completed 09/19/2022, 10/12/2021 HIB Vaccines Aged [...] Procedure Name Priority Date/Time Associated Diagnosis Comments CT CHEST W CONTRAST Routine 04/21/2024 9 :33 AM EST LIPID PANEL, STANDARD Routine 06/24/2020 8:41 AM EDT from Last 3 Months or Most Recently Relevant to Health Maintenance Results * CT Chest w/ Contrast (04/21/2024 9:33 AM EST) Anatomical Region Laterality Modality Body, Chest Computed Tomogra phy 04/21/2024 9:33 AM EST Narrative 04/21/2024 9:35 AM EST ? [facility] ?[address] ?[place] [address] ? CT Scan Report ? Signed ? Patient: Raymond Kitchen,Jitendra ?MR#: MM ?? [id number] ? : 1940 ?Acct:[id number] ? Age/Sex: 84 / M ?ADM Date: /24/25 ? Loc: HO.CT ? Attending Dr: Gill Manley MD ? Ordering Physician: Gill Manley MD ?? Date of Service: 04/18/24 ?? Procedure(s): CT chest w IV con ?? Accession Number(s): [id number] ? cc: Gill Manley MD; Shelley Orellana MD ? Report Number: ?? [id number]: Total DLP = ?? 79.00 mGy-cm ? CLINICAL HISTORY: Follow-up on lung cancer. ? CT chest with contrast ? Comparison: CT/LA/SR - CT CHEST W IV CON - 11/13/23 08:55 EDT ? Findings: ?? No cardiomegaly or pericardial effusion. ?? Moderate atherosclerotic disease of the coronary arteries. ?? No mediastinal adenopathy. No discrete thyroid lesion. ?? Postsurgical changes in the right perihilar region with right-sided volume ?? loss, chronic. ?? Mild to moderate centrilobular emphysema with prominent paraseptal blebs ?? of the apices. ?? Reference axial image 77, there is an 11 mm ground-glass nodule, new from ?? prior. ?? Reference axial image 57 within the right upper lobe, there is a new ?? ground-glass nodule medially. ?? Chronic scattered regions of linear and ground-glass density are also ?? present. ?? There is a new 3 mm nodule in the subpleural right lower lobe on axial 122. ?? No effusion. No pneumothorax. ?? Severe hepatic steatosis. ? Impression: ? New ground-glass and solid nodules. Six-month follow-up CT recommended. ?? Chronic changes as detailed. ? This document has been electronically signed by: Adalid Meade MD on ?? 04/21/2024 09:33:59 ? Dictated By: ?Adalid Meade MD ? Signed By: ?<Electronically signed by Adalid Meade MD in OV> ? 04/21/24933 ? DD/ 2 ? TD/TT: 04/21/24932 ? Audio Visual Collections Coordinator: ? Procedure Note Kitty, Image - 04/21/[address] [address] [address] Scan Report Signed Patient: Jitendra DotsonMR#: [id number] : 2Acct:[id number] Age/Sex: 84 / MADM Date: 04/18/24 Loc: HO.CT Attending Dr: Gill Manley MD Ordering Physician: Gill Manley MD Date of Service: 04/18/24 Procedure(s): CT chest w IV con Accession Number(s): [id number] cc: Gill Manley MD; Shelley Orellana MD Report Number: [id number]: Total DLP = 79.00 mGy-cm CLINICAL HISTORY: Follow-up on lung cancer. CT chest with contrast Comparison: CT/LA/SR - CT CHEST W IV CON - 11/13/23 08:55 EDT Findings: No cardiomegaly or pericardial effusion. Moderate atherosclerotic disease of the coronary arteries. No mediastinal adenopathy. No discrete thyroid lesion. Postsurgical changes in the right perihilar region with right-sided volume loss, chronic. Mild to moderate centrilobular emphysema with prominent paraseptal blebs of the apices. Reference axial image 77, there is an 11 mm ground-glass nodule, new from prior. Reference axial image 57 within the right upper lobe, there is a new ground-glass nodule medially. Chronic scattered regions of linear and ground-glass density are also present. There is a new 3 mm nodule in the subpleural right lower lobe on [id number]. No effusion. No pneumothorax. Severe hepatic steatosis. Impression: New ground-glass and solid nodules. Six-month follow-up CT recommended. Chronic changes as detailed. This document has been electronically signed by: Adalid Meade MD on 04/21/2024 09:33:59 Dictated By: Adalid Meade MD Signed By: <Electronically signed by Adalid Meade MD in OV> 04/21/2434 DD/ 2 TD/TT: 04/21/24932 Audio Visual Collections Coordinator: [facility] External Provider IMG CT PROCEDURES Edited Result - Final * (ABNORMAL) LIPID PANEL, STANDARD (06/24/2020 8:41 AM EDT) Chol/HDLC Ratio 3.0 <5.0 (calc) [facility] Cholesterol, Total 210(H) <200 mg/dL [facility] HDL Cholesterol 71 > OR = 40 mg/dL [facility] LDL Cholesterol 122(H) mg/dL (calc) [...] ?? Declan HALL et al. ARCHIE. 2013;310(19): 8950-2776 ?? (http://education.[employer]/faq/ULW775) Non-HDL Cholesterol 139(H) <130 mg/dL (calc) [facility] Comment: For patients with diabetes plus 1 major ASCVD risk ?? factor, treating to a non-HDL-C goal of <100 mg/dL ?? (LDL-C of <70 mg/dL) is considered a therapeutic ?? option. Triglycerides 80 <150 mg/dL [facility] 06/24/2020 8:41 AM EDT us Shelley Orellana MD LAB BLOOD ORDERABLES Final Re sult [facility] [address] from Last 3 Months or Most Recently Relevant to Health Maintenance Insurance [facility] Care Teams Complex Case Manager Relationship Specialty Start Date End Date Shelley Orellana MD [address] [place] [id number] PCP - General Family Medicine 07/06/21
--- OUTSIDE RECORDS SUMMARY | 2024-04-23 11:48 | XMS_ITS | Clinical Summary ---
Author Organization [facility] Address [address] [place] [address] Phone Care Team Providers Care Funeral Sales Manager Name Role Phone Shelley Orellana MD Primary Care Provider [phone] Allergies Active Allergy Reactions Criticality Noted Date [...] Phone Billing Address Personal/Family Self [address] ([id number]) [facility] ([id number]) Care Teams Funeral Sales Manager Relationship Specialty Start Date End Date Shelley Orellana MD PCP - General Family Medicine 02/28/22
--- OUTSIDE RECORDS SUMMARY | 2024-04-23 11:48 | XMS_ITS | Encounter Summary ---
Author Organization [employer] Address [address] [facility] 7t [place] [address] Care Team Providers Care Bone Char Kiln Tender Name Role Phone Shelley Orellana MD Primary Care Provider [phone] Reason for Visit * Reason Onset Date Comments Med Refill 12/06/2022 Encounter Details Date Type Department Care Team ([facility] st Contact Info) Description 12/06/2022 Telephone [facility] MED [facility] PEDS [address] [place] [address] Shelley Orellana MD [address] [place] [address] Med Refill Social History Tobacco Use Types [...] have a refill medication was sent to [facility] on 09/05/22 #90 with 1 refill. [...] documented as of this encounter Care Teams Bone Char Kiln Tender Relationship Specialty Start Date End Date Shelley Orellana MD [address] [place] [address] PCP - General Family Medicine 07/06/21 documented as of this encounter
--- OUTSIDE RECORDS SUMMARY | 2024-04-23 11:48 | XMS_ITS | Encounter Summary ---
Author Organization [employer] [facility] Address [address] [facility] [address] [place] [address] Care Team Providers Care Unit Aide Tech Name Role Phone Shelley Orellana MD Primary Care Provider Encounter Details Date Type Department Care Team (Late st Contact Info) Description 04/18/2024 Orders Only [facility] External Provider, [facility] Social History Tobacco Use Types Packs/Day Years [...] AM EDT documented as of this encounter Plan of Treatment Not on file documented as of this encounter Procedures Procedure Name Priority Date/Time Associated Diagnosis Comments CT CHEST W CONTRAST Routine 04/21/2024 9 :33 AM EST documented in this encounter Results * CT Chest w/ Contrast (04/21/2024 9:33 AM EST) Anatomical Region Laterality Modality Body, Chest Computed Tomogra phy 04/21/2024 9:33 AM EST Narrative 04/21/2024 9:35 AM EST ? [facility] ?[address] ?[place] [address] ? CT Scan Report ? Signed ? Patient: Jitendra Dotson ?MR#: MM ?? [id number] ? : 1940 ?Acct:[id number] ? Age/Sex: 84 / M ?ADM Date: 04/18/24 ? Loc: HO.CT ? Attending Dr: Gill Manley MD ? Ordering Physician: Gill Manley MD ?? Date of Service: 04/18/24 ?? Procedure(s): CT chest w IV con ?? Accession Number(s): [id number] ? cc: Gill Manley MD; Shelley Orellana MD ? Report Number: ?? [id number]: Total DLP = ?? 79.00 mGy-cm ? CLINICAL HISTORY: Follow-up on lung cancer. ? CT chest with contrast ? Comparison: CT/ID/SR - CT CHEST W IV CON - [...] by Adalid Meade MD in OV> ? 04/21/24 0934 ? DD/ 2 ? TD/TT: 04/21/24932 ? Facility Administrator: ? Procedure Note Kitty, [place] - 04/21/[address] [place] [address] [address] Scan Report Signed Patient: Jitendra DotsonMR#: [id number] : 1940cct:[id number] Age/Sex: 84 / MADM Date: 04/18/24 Loc: HO.CT Attending Dr: Gill Manley MD Ordering Physician: Gill Manley MD Date of Service: 04/18/24 Procedure(s): CT chest w IV con Accession Number(s): [id number] cc: Gill Manley MD; Shelley Orellana MD Report Number: [id number]: Total DLP = 79.00 mGy-cm CLINICAL HISTORY: Follow-up on lung cancer. CT chest with contrast Comparison: CT/ID/SR - CT CHEST W IV CON - [...] in the subpleural right lower lobe on [id number]. No effusion. No pneumothorax. Severe hepatic steatosis. Impression: New ground-glass and solid nodules. Six-month follow-up CT recommended. Chronic changes as detailed. This document has been electronically signed by: Adalid Meade MD on 04/21/2024 09:33:59 Dictated By: Adalid Meade MD Signed By: <Electronically signed by Adalid Meade MD in OV> 04/21/2434 DD/ 2 TD/TT: 04/21/24932 Facility Administrator: [facility] External Provider IMG CT PROCEDURES Edited Result - Final documented in this encounter Visit Diagnoses Not on filedocumented in this encounter Additional Health Concerns Assessment Noted Time PHQ-9 Depression Total Score: 0 05/22/19 23 10:16 AM EST documented as of this encounter Care Teams Unit Aide Tech Relationship Specialty Start Date End Date Shelley Orellana MD [address] [place] [address] PCP - General Family Medicine 07/06/21 documented as of this encounter
[2024-04-23 18:10] LABS: Anion Gap 14 (12-20); Blood Urea Nitrogen 10 mg/dL (9-16); Calcium 10.1 mg/dL (8.4-10.2); Carbon Dioxide 25 mmol/L (22-29); Chloride 104 mmol/L (96-108); Estimated Glomerular Filt Rate > 60; Potassium 4.2 mmol/L (3.3-5.1); Sodium 139 mmol/L (135-145)
== END 2024-04-23 09:59 | disposition home or self-care (01) ==
LOC: HO.HKASLDS 09:58
PROVIDERS: Visit Provider Internal Medicine Nephrology
DX: I10 Essential (primary) hypertension (principal)
CPT/HCPCS: 36415; 80051; 82310; 82565; 84520

== ENCOUNTER 2024-04-29 09:52 | Outpatient (AMB) | payer OTHER, SELFPAY ==
--- NOTE | 2024-04-29 09:57 | HO.NEPHOV_ITS ---
Vital Signs 04/29/24 09:59 Height 5 ft 3 in Weight 137 lb 4 oz BMI 24.3 BP 120/70 Blood Pressure Location Lt brachial Position Sitting Intake Visit Reasons: Hypertension-Conf Semaphore Operator Required: Yes Semaphore Operator Language: Account Coordinator Services: Semaphore Operator Present Semaphore Operator Name: [id number] Information Interpreted: clinical only Accompanied by: Self / Same As Patient Allergies sulfamethazine [SULFAMETHAZINE] Allergy (Intermediate, Verified 04/29/24 09:59) ITCHING HPI Comments Details: I had the privilege of seeing Mr. Kitchen in follow-up of. He has history of lung cancer and had undergone lobectomy with chemo and radiation. He also had a left tonsillar cancer. He has been closely followed with oncologist. He has history hypertension and has been on medications with good control. His renal functions have been stable. He is not on any RUFUS inhibitor, ARB, nonsteroidals or spironolactone. He is not a diabetic. He still has a pulmonary nodule which is being followed up by his oncologist. He had no new complaints at the time of this office visit. 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) Surgical History History of biopsy (~2016) History of lung biopsy (~2016) Port-A-Cath in place History of lobectomy of lung (~2018) History of dental surgery Family History Other No family history of cancer Social History Household Members: None Housing: Apartment Are you a primary home care physical therapist to a significant other at home: No Do you presently have visiting nurse or other home services: Yes (air bag stripper) Alcohol intake: former Patient Tobacco Use Status: Former Tobacco user Tobacco use type: Cigarette service: No Current occupational status: disabled Review of Systems Const All systems reviewed & are unremarkable except as noted in HPI and below Physical Exam Vital Signs: Last Vital Signs BP 120/70 04/29/24 09:59 BMI result Body Mass Index 24.3 Const General: comfortable and no acute distress Orientation/consciousness: patient oriented x3 HEENT Head: Yes normocephalic Mouth: Normal oral and palatal mucosa present Eyes EOM: EOMs intact bilaterally Neck Neck: Yes supple Resp Auscultation: clear to auscultation bilaterally Cardio Jugular venous distension: no JVD Rate: regular rate GI Palpation (GI): Soft to palpation Auscultation: normal bowel sounds General: Yes no CVA tenderness Back/Spine/Pelvis Back: no CVA tenderness Skin General skin exam: no rashes or lesions noted Neuro General: patient oriented x3 and moves all extremities Extrem General: Yes no pedal edema Results Reviewed Nephrology Results: Hgb 14.3 g/dl (14.0-18.0) 04/03/24 WBC 7.6 X10*3/uL (4.8-10.8) 04/03/24 Plt Count 259 X10*3/uL (160-400) 04/03/24 Sodium 139 mmol/L (135-145) 04/23/24 Potassium 4.2 mmol/L (3.3-5.1) 04/23/24 Chloride 104 mmol/L (96-108) 04/23/24 Carbon Dioxide 25 mmol/L (22-29) 04/23/24 BUN 10 mg/dL (9-16) 04/23/24 Creatinine 0.81 mg/dL (0.5-1.4) 04/23/24 Calcium 10.1 mg/dL (8.4-10.2) 04/23/24 Urine Protein Trace mg/dL (Neg-Trace) 10/03/23 Urine Creatinine 85.21 mg/dL 10/03/23 Protein/Creatinin Ratio 0.20 (<0.2) 10/03/23 Assessment & Plan Assessment & Plan (1) Hypertension: Code(s): I10 - Essential (primary) hypertension Category: Medical Qualifiers: Hypertension type: primary hypertension Qualified Code(s): I10 - Essential (primary) hypertension Plan Mr. Kitchen has hypertension and is well controlled on current medication regimen. He had history of labile potassium levels but is normal now. He has a left renal cyst which is asymptomatic. He has no hematuria, proteinuria, flank pain. He maintains good hydration. He avoids nonsteroidals. I did not make any medication changes today. All questions were answered. Follow-up given Orders: Orders Blood Urea Nitrogen 6 Months I10 - Essential (primary) hypertension Electrolytes 6 Months I10 - Essential (primary) hypertension Creatinine 6 Months I10 - Essential (primary) hypertension Coding Level of Care Code Est Pt Level 4 (39948) Diagnoses Primary hypertension I10 Hypertension type: primary hypertension
[2024-04-29 09:59] VITALS: BP 120/70; BMI 24.3
--- OUTSIDE RECORDS SUMMARY | 2024-04-29 10:34 | XMS_ITS | Encounter Summary ---
Author Organization [employer] Address [address] [facility] 7t [place] [address] Care Team Providers Care Valve And Regulator Repairer Name Role Phone Shelley Orellana MD Primary Care Provider [phone] Reason for Visit * Reason Onset Date Comments Med Refill 12/06/2022 Encounter Details Date Type Department Care Team ([facility] st Contact Info) Description 12/06/2022 Telephone [facility] MED & PEDS [address] [place] [address] Shelley Orellana MD [address] [place] [address] Med Refill Social History Tobacco Use Types [...] have a refill medication was sent to [facility] on 09/05/22 #90 with 1 refill. [...] documented as of this encounter Care Teams Valve And Regulator Repairer Relationship Specialty Start Date End Date Shelley Orellana MD [address] [place] [address] PCP - General Family Medicine 07/06/21 documented as of this encounter
--- OUTSIDE RECORDS SUMMARY | 2024-04-29 10:34 | XMS_ITS | Clinical Summary ---
Author Organization [employer] Address [address] [facility] 7t [place] [address] Care Team Providers Care Floor Waxer Name Role Phone Shelley Orellana MD Primary Care Provider [phone] Allergies Active Allergy Reactions Criticality Noted Date [...] Department Care Team Description 04/18/2024 Orders Only [facility] External Provider, [facility] from Last 3 Months Immunizations Name Administration [...] EST Narrative 04/21/2024 9:35 AM EST ? [facility] ?[address] ?[place] [address] ? CT Scan Report ? Signed ? Patient: Raymond Kitchen,Jitendra ?MR#: MM ?? [id number] ? : 1940 ?Acct:[id number] ? Age/Sex: 84 / M ?ADM Date: /24/25 ? Loc: HO.CT ? Attending Dr: Gill Manley MD ? Ordering Physician: Gill Manley MD ?? Date of Service: 04/18/24 ?? Procedure(s): CT chest w IV con ?? Accession Number(s): [id number] ? cc: Gill Manley MD; Shelley Orellana MD ? Report Number: ?? [id number]: Total DLP = ?? 79.00 mGy-cm ? CLINICAL HISTORY: Follow-up on lung cancer. ? CT chest with contrast ? Comparison: CT/[place]/SR - CT CHEST W IV CON - [...] ? DD/ 2 ? TD/TT: 04/21/24932 ? Asian Art Curator: ? Procedure Note Kitty, [place] - 04/21/[address] [address] [address] Scan Report Signed Patient: Jitendra DotsonMR#: [id number] : 2Acct:[id number] Age/Sex: 84 / MADM Date: 04/18/24 Loc: HO.CT Attending Dr: Gill Manley MD Ordering Physician: Gill Manley MD Date of Service: 04/18/24 Procedure(s): CT chest w IV con Accession Number(s): [id number] cc: Gill Manley MD; Shelley Orellana MD Report Number: [id number]: Total DLP = 79.00 mGy-cm CLINICAL HISTORY: Follow-up on lung cancer. CT chest with contrast Comparison: CT/IA/SR - CT CHEST W IV CON - [...] in the subpleural right lower lobe on [id number]. No effusion. No pneumothorax. Severe hepatic steatosis. Impression: New ground-glass and solid nodules. Six-month follow-up CT recommended. Chronic changes as detailed. This document has been electronically signed by: Adalid Meade MD on 04/21/2024 09:33:59 Dictated By: Adalid Meade MD Signed By: <Electronically signed by Adalid Meade MD in OV> 04/21/2434 DD/ 2 TD/TT: 04/21/24932 Asian Art Curator: [facility] External Provider IMG CT PROCEDURES Edited Result - Final * (ABNORMAL) LIPID PANEL, STANDARD (06/24/2020 8:41 AM EDT) Chol/HDLC Ratio 3.0 <5.0 (calc) [facility] Cholesterol, Total 210(H) <200 mg/dL [facility] HDL Cholesterol 71 > OR = 40 mg/dL [facility] LDL Cholesterol 122(H) mg/dL (calc) [...] ?? Declan HALL et al. ARCHIE. 2013;310(19): 0485-2844 ?? (http://education.GeoVario/faq/AHA393) Non-HDL Cholesterol 139(H) <130 mg/dL (calc) [facility] Comment: For patients with diabetes plus 1 major ASCVD risk ?? factor, treating to a non-HDL-C goal of <100 mg/dL ?? (LDL-C of <70 mg/dL) is considered a therapeutic ?? option. Triglycerides 80 <150 mg/dL [facility] 06/24/2020 8:41 AM EDT us Shelley Orlelana MD LAB BLOOD ORDERABLES Final Re sult [facility] [address] from Last 3 Months or Most Recently Relevant to Health Maintenance Insurance [facility] [place] Care Teams Floor Waxer Relationship Specialty Start Date End Date Shelley Orellana MD [address] [place] [id number] PCP - General Family Medicine 07/06/21
--- OUTSIDE RECORDS SUMMARY | 2024-04-29 10:34 | XMS_ITS | Encounter Summary ---
Author Organization [employer] [facility] Address [address] 7[address] [place] [address] Care Team Providers Care Development Administrator Name Role Phone Shelley Oerllana MD Primary Care Provider [phone] Encounter Details Date Type Department Care Team (Late st Contact Info) Description 04/18/2024 Orders Only [facility] External Provider, [facility] Social History Tobacco Use Types Packs/Day [...] EST Narrative 04/21/2024 9:35 AM EST ? [facility] ?[address] ?[place] [address] ? CT Scan Report ? Signed ? Patient: Jitendra Dotson ?MR#: MM ?? [id number] ? : 1940 ?Acct:[id number] ? Age/Sex: 84 / M ?ADM Date: 04/18/24 ? Loc: HO.CT ? Attending Dr: Gill Manley MD ? Ordering Physician: Gill Manley MD ?? Date of Service: 04/18/24 ?? Procedure(s): CT chest w IV con ?? Accession Number(s): [id number] ? cc: Gill Manley MD; Shelley Orellana MD ? Report Number: ?? [id number]: Total DLP = ?? 79.00 mGy-cm ? CLINICAL HISTORY: Follow-up on lung cancer. ? CT chest with contrast ? Comparison: CT/[place]/SR - CT CHEST W IV CON - [...] ? DD/ 2 ? TD/TT: 04/21/24932 ? Chief Ophthalmic Technician: ? Procedure Note Kitty, [place] - 04/21/[address] [place] [address] [address] Scan Report Signed Patient: Jitendra DotsonMR#: [id number] : 1940cct:[id number] Age/Sex: 84 / MADM Date: 04/18/24 Loc: HO.CT Attending Dr: Gill Manley MD Ordering Physician: Gill Manley MD Date of Service: 04/18/24 Procedure(s): CT chest w IV con Accession Number(s): [id number] cc: Gill Manley MD; Shelley Orellana MD Report Number: [id number]: Total DLP = 79.00 mGy-cm CLINICAL HISTORY: Follow-up on lung cancer. CT chest with contrast Comparison: CT/[place]/SR - CT CHEST W IV CON - [...] in the subpleural right lower lobe on [id number]. No effusion. No pneumothorax. Severe hepatic steatosis. Impression: New ground-glass and solid nodules. Six-month follow-up CT recommended. Chronic changes as detailed. This document has been electronically signed by: Adalid Meade MD on 04/21/2024 09:33:59 Dictated By: Adalid Meade MD Signed By: <Electronically signed by Adalid Meade MD in OV> 04/21/2434 DD/ 2 TD/TT: 04/21/24932 Chief Ophthalmic Technician: [facility] External Provider IMG CT PROCEDURES Edited Result - Final documented in this encounter Visit Diagnoses Not on filedocumented in this encounter Additional Health Concerns Assessment Noted Time PHQ-9 Depression Total Score: 0 05/22/19 23 10:16 AM EST documented as of this encounter Care Teams Development Administrator Relationship Specialty Start Date End Date Shelley Orellana MD [address] [place] [address] PCP - General Family Medicine 07/06/21 documented as of this encounter
--- OUTSIDE RECORDS SUMMARY | 2024-04-29 10:34 | XMS_ITS | Clinical Summary ---
Author Organization [facility] Address [address] [place] [address] Phone Care Team Providers Care Hook And Eye Machine Operator Name Role Phone Shelley Orellana MD Primary Care Provider [phone] Allergies Active Allergy Reactions Criticality Noted Date [...] Phone Billing Address Personal/Family Self 1940 [address] ([id number]) [facility] ([id number]) Care Teams Hook And Eye Machine Operator Relationship Specialty Start Date End Date Shelley Orellana MD PCP - General Family Medicine 02/28/22
== END 2024-04-29 10:31 | disposition home or self-care (01) ==
PROVIDERS: PCP Family Medicine; Visit Provider Internal Medicine Nephrology
DX: I10 Essential (primary) hypertension (principal)
CPT/HCPCS: 99214

== ENCOUNTER → 2024-04-29 09:52 | Outpatient (BNVA) | payer OTHER, SELFPAY | PROVIDERS: PCP Family Medicine; Visit Provider Internal Medicine Nephrology | DX: I10 Essential (primary) hypertension (principal) | CPT/HCPCS: 99212 ==

== ENCOUNTER 2024-08-11 09:38 | Outpatient (REF) | payer OTHER, SELFPAY ==
--- OUTSIDE RECORDS SUMMARY | 2024-08-11 09:57 | XMS_ITS | Clinical Summary ---
Author Organization [employer] Address [address] [facility] 7t [place] [address] Care Team Providers Care Test Desk Trouble Locator Name Role Phone Shelley Orellana MD Primary Care Provider [phone] Allergies Active Allergy Reactions Criticality Noted Date Comments Sulfa Antibiotics 03/16/2022 Medications Acetaminophen Extra Strength 500 MG tablet TAKE 2 TABLET BY ORAL ROUTE UP TO EVERY 8 HOURS FOR PAIN NEEDED 90 tablet 05/15/19 25 Active amLODIPine (Norvasc) 5 MG tablet Take 1 tablet (5 mg) by mouth Once per day. 30 tablet 08/02/19 25 Active cholecalciferol VITAMIN D (Vitamin D-3) 50 MCG (1999 UT) tablet Take 1 tablet (50 mcg) by mouth Once per day. 30 tablet 08/02/19 25 Active omeprazole (PriLOSEC) [address] capsule Take 1 capsule (40 mg) by mouth before breakfast. Do not crush or chew. 30 capsule 08/02/19 25 Active RSVPreF3 Vac Recomb Adjuvanted 120 MCG/0.5ML reconstituted suspension Inject 0.5 mL into the muscle 1 (one) time for 1 dose. 1 each 08/12/19 25 025 Active zoster vaccine-recombina nt adjuvanted (Shingrix) 50 MCG/0.5ML vaccine Inject 0.5 mL (50 mcg) into the muscle 1 (one) time for 1 dose. 0.5 mL 08/12/19 25 025 Active omeprazole (PriLOSEC) [address] capsule TAKE 1 CAPSULE BY ORAL ROUTE EVERY DAY BEFORE A MEAL 90 capsule 1 07/06/19 24 05/09/2 025 Discontinued(Re order (will not trigger notification to Pharmacy)) cholecalciferol (Vitamin D-3) 50 MCG (1999) tablet TAKE 1 TABLET BY MOUTH EVERY DAY 120 tablet 3 07/06/19 24 025 Discontinued(Re order (will not trigger notification to Pharmacy)) amLODIPine (Norvasc) 5 MG tablet TAKE 1 TABLET BY MOUTH ONCE EVERY DAY 90 tablet 06/12/19 25 025 Discontinued(Re order (will not trigger notification to Pharmacy)) Active Problems Problem Noted Date Diagnosed Date Memory impairment 08/11/2024 Rhinosinusitis 05/30/2022 Assessment & Plan (05/30/2022 10:36 [...] Encounters Date Type Department Care Team Description 08/11/2024 9:00 AM EDT Office Visit [facility] MED & PEDS [address] [place], [place] [phone] Shelley Orellana MD Primary hypertension (Primary Dx); Memory impairment 08/11/2024 Travel 07/31/2024 Telephone [facility] [address] [place] [address] Shelley Orellana MD Med Refill 07/31/2024 Refill [facility] MED & PEDS [address] [place], [place] [phone] Shelley Orellana MD 07/02/2024 Refill [facility] MED [facility] PEDS [address] [place] [address] Shelley Orellana MD 06/10/2024 Refill [facility] MED & PEDS [address] [place] [address] Shelley Orellana MD 05/14/2024 Refill [facility] MED & PEDS [address] [place] [address] Shelley Orellana MD from Last 3 Months Immunizations Immunization Administration Dates Next Due Influenza High-dose Quadriva [...] Date Recorded Patient Health Questionnaire-9 Score 0 08/11/2024 Patient Health Questionnaire-9 Score 0 08/11/2024 Last PHQ-9: Questionnaire Data Not on file 0 08/11/2024 Housing Stability Answer Date Recorded What is your housing situation today? I have bennettnick rosas 08/11/[address] you li ve. Do you have problems with any of the following? None of the above 08/11/2024 Food Insecurity Answer Date Recorded Within the past 12 months, y ou worried that your food would run out before you got money to buy more: Never True 08/11/2024 Within the past 12 months,th e food you bought just didn't last and you didn't have enough money to get more: Never True Transportation Answer Date Recorded In the past 12 months, has l ack of transportation kept you from medical appts, meetings, work or from getting things needed for daily living? No 08/11/2024 Utilities Answer Date Recorded In the past 12 months, has t he electric, gas, oil or water company threatened to shut off services in your home? No 08/11/2024 Depression Answer Date Recorded Patient Health Questionnaire-2 Score 0 08/11/2024 Internet Access Answer Date Recorded Internet Access Q1 Yes 08/11/2024 Internet Access Q2 Not on file 08/11/2024 Sex and Gender Information Value Date Recorded Sex Assigned at Male 01/23/2022 10:37 AM EDT Legal Sex Male 10:37 AM EDT Gender Identity Male 01/23/2022 10:37 AM EDT Sexual Orientation Straight 01/23/2022 10 :37 AM EDT Last Filed Vital Signs Vital Sign Reading Time Taken Comments Blood Pressure 150/74 08/11/2024 9:16 AM EDT Pulse 82 08/11/2024 9:05 AM EDT Temperature 36.7 ??C (98 ??F) 08/11/2024 9:05 AM EDT Respiratory Rate 20 08/11/2024 9:05 AM EDT Oxygen Saturation 98% 08/11/2024 9:05 AM EDT Inhaled Oxygen Concentration - - Weight 59.8 kg (131 lb 12.8 oz) 08/11/2024 9:05 AM EDT Height 159 cm (5' 2.6 ) 08/11/2024 9:05 AM EDT Body Mass Index 23.65 08/11/2024 9:05 AM EDT Plan of Treatment Upcoming Encounters Date Type Department Care Team (Late st Contact Info) Description 09/15/2024 10:30 AM EDT Clinical Support [facility] MED & PEDS [address] [place] [address] Health Maintenance Due Date Last Done Comments Zoster Vaccines (1 of 2) 01/16/1992 RSV Patients and Patients Aged 60 years or older (1 - 1-dose 75+ series) 2017 COVID-19 Vaccine ( season) 2024 03/13/2022, 04/22/2021, 07/26/2020, Additional history exists Postponed from 11/25/2023 (Supply/Drug Shortage) Influenza Vaccine (#1) 2024 , 01/06/2022, 04/23/2017 Postponed from 11/25/2023 (Supply/Drug Shortage) Lipid Panel 06/24/2025 06/24/2020 Alcohol/Substance Use Screening 08/11/2025 08/11/2024 Depression Screening 08/11/2025 08/11/2024, 08/12/19 25 SDOH Screening 08/11/2025 08/11/2024 Tobacco Screening 08/11/2025 08/11/2024 DTaP/Tdap/Td Vaccines (2 - Td or Tdap) [...] patient's age to complete this topic Meningococcal B Vaccine Aged Out No l onger eligible based on patient's age to complete [...] ?? Declan HALL et al. ARCHIE. 2013;310(19): 3775-0987 ?? (http://[employer].Blind Side Entertainment/faq/IRP656) Non-HDL Cholesterol 139(H) <130 mg/dL (calc) [facility] [...] Re sult [facility] [address] from Last 3 Months or Most Recently Relevant to Health Maintenance Insurance [facility] ASSISTED OPTIONS (HMO D-SNP) [facility] STANDARD Care Teams Test Desk Trouble Locator Relationship Specialty Start Date End Date Shelley Orellana MD [address] [place] [address] PCP - General Family Medicine 07/06/21 [facility] [address] [address] Artisan Plasterer 07/28/24
--- OUTSIDE RECORDS SUMMARY | 2024-08-11 09:57 | XMS_ITS | Encounter Summary ---
Author Organization [employer] Address [address] [facility] [address] 7[address] [place] [address] Care Team Providers Care Harbor Tug Captain Name Role Phone Shelley Orellana MD Primary Care Provider [phone] Reason for Visit * Reason Comments Med Refill Encounter Details Date Type Department Care Team ([facility] Contact Info) Description 07/31/2024 Refill [facility] MED & PEDS [address] [place], [place] [phone] Shelley Orellana MD [address] [place] [address] Social History Tobacco Use Types Packs/Day Years [...] as of this encounter Plan of Treatment Upcoming Encounters Date Type Department Care Team (Late st Contact Info) Description 09/15/2024 10:30 AM EDT Clinical Support [facility] MED & PEDS [address] [place] [address] documented as of this encounter Visit Diagnoses Not on filedocumented in this encounter Additional Health Concerns Assessment Noted Time PHQ-9 Depression Total Score: 0 05/22/19 10:16 AM EST documented as of this encounter Care Teams Harbor Tug Captain Relationship Specialty Start Date End Date Shelley Orellana MD [address] [place] [address] PCP - General Family Medicine 07/06/21 [facility] [address] [place] [address] Research Subject 07/28/24 documented as of this encounter
--- OUTSIDE RECORDS SUMMARY | 2024-08-11 09:57 | XMS_ITS | Encounter Summary ---
Author Organization [employer] Address [address] [facility] [address] [place] [address] Care Team Providers Care Environmental Research Project Manager Name Role Phone Shelley Orellana MD Primary Care Provider [phone] Reason for Visit * Reason Comments Re-establish care Encounter Details Date Type Department Care Team ([facility] Contact Info) Description 08/11/2024 9:00 AM EDT Office Visit [facility] CHC MED & PEDS [address] [place], [place] [phone] Shelley Orellana MD [address] [place] [address] Primary hypertension (Primary Dx); Memory impairment Social History Tobacco Use Types Packs/Day Years [...] housing situation today? I have bennett ralph 08/11/[address] you li [...] AM EDT documented as of this encounter Last Filed Vital Signs Vital Sign Reading [...] Mass Index 23.65 08/11/2024 9:05 AM EDT documented in this encounter Functional Status * Over the past 2 weeks, how often have you been bothered by any of the following problems? Question Answer Date of Assessment Author Patient Health Questionnaire-2 Score 0 07/24 9:06 AM EDT Lidya Carvajal MA * Little interest or pleasure in doing things Answer Date of Assessment Author Not at all 08/11/2024 9:06 AM EDT Lidya Carvajal MA * Feeling down, depressed, or hopeless Answer Date of Assessment Author Not at all 08/11/2024 9:06 AM EDT Lidya Carvajal MA * Trouble falling or staying asleep, or sleeping too much Answer Date of Assessment Author Not at all 08/11/2024 9:06 AM EDT Lidya Carvajal MA * Feeling tired or having little energy Answer Date of Assessment Author Not at all 08/11/2024 9:06 AM EDT Lidya Carvajal MA * Poor appetite or overeating Answer Date of Assessment Author Not at all 08/11/2024 9:06 AM EDT Lidya Carvajal MA * Feeling bad about yourself - or that you are a failure or have let yourself or your family down Answer Date of Assessment Author Not at all 08/11/2024 9:06 AM EDT Lidya Carvajal MA * Trouble concentrating on things, such as reading the newspaper or watching television Answer Date of Assessment Author Not at all 08/11/2024 9:06 AM EDT Lidya Carvajal MA * Moving or speaking so slowly that other people could have noticed? Or the opposite - being so fidgety or restless that you have been moving around a lot more than usual. Answer Date of Assessment Author Not at all 08/11/2024 9:06 AM EDT Lidya Carvajal MA * Thoughts that you would be better off or hurting yourself in some way Answer Date of Assessment Author Not at all 08/11/2024 9:06 AM EDT Lidya Carvajal MA * Patient Health Questionnaire-9 Score Answer Date of Assessment Author 0 08/11/2024 9:06 AM EDT Lidya Carvajal MA documented as of this encounter Plan of Treatment Upcoming Encounters Date Type Department Care Team (Late st Contact Info) Description 09/15/2024 10:30 AM EDT Clinical Support [facility] MED & PEDS [address] [place] [address] Scheduled Orders Name Type Priority Associated Diagnoses Orde r Schedule CBC auto differential Lab Routine Primary hypertension Expected: 08/11/2024 (Approximate), Expires: 08/11/2025 Comprehensive Metabolic Panel Lab Routine Primary hypertension Expected: 08/11/2024 (Approximate), Expires: 08/11/2025 Albumin, Random Urine W/Creatinine Lab Routine Primary hypertension Expected: 08/11/2024 (Approximate), Expires: 08/11/2025 TSH W/Reflex to FT4 Lab Routine Primary hypertension Expected: 08/11/2024 (Approximate), Expires: 08/11/2025 Syphilis Screen Lab Routine Memory impairment Expected: 08/11/2024, Expires: 08/11/2025 Lyme Disease Ab with Reflex to Blot (IgG, IgM) Lab Routine Memory impairment Expected: 08/11/2024, Expires: 08/11/2025 HIV-1/2 Antigen and Antibodies, Fourth Generation, with Reflexes Lab Routine Memory impairment Expected: 08/11/2024 (Approximate), Expires: 08/11/2025 Vitamin B12 (Cobalamin) and Folate Panel, Serum Lab Routine Memory impairment Expected: 08/11/2024 (Approximate), Expires: 08/11/2025 Lipid Panel, Standard Lab Routine Primary hypertension Expected: 08/11/2024 (Approximate), Expires: 08/11/2025 documented as of this encounter Visit Diagnoses Diagnosis Primary hypertension- Primary Unspecified essential hypertension Memory impairment Memory loss documented in this encounter Additional Health Concerns Assessment Noted Time PHQ-9 Depression Total Score: 0 08/12/19 9:06 AM EDT documented as of this encounter Care Teams Environmental Research Project Manager Relationship Specialty Start Date End Date Shelley Orellana MD [address] [place] [address] PCP - General Family Medicine 07/06/21 [facility] [address] [address] Licensed Mental Health Professional 07/28/24 documented as of this encounter
--- OUTSIDE RECORDS SUMMARY | 2024-08-11 09:57 | XMS_ITS | Encounter Summary ---
Author Organization [employer] Address [address] [facility] [place] [address] Care Team Providers Care Supervisor Heavy Equipment Name Role Phone Shelley Orellana MD Primary Care Provider [phone] Reason for Visit * Reason Comments Med Refill Encounter Details Date Type Department Care Team ([facility] Contact Info) Description 05/13/2024 Refill [facility] CHC MED & PEDS [address] [place], [place] [phone] Shelley Orellana MD [address] [place] [address] Social History Tobacco Use Types Packs/Day Years [...] Description 09/15/2024 10:30 AM EDT Clinical Support [facility] MED & PEDS [address] [place] [address] documented as of this encounter Visit Diagnoses Not on filedocumented in this encounter Additional Health Concerns Assessment Noted Time PHQ-9 Depression Total Score: 0 05/22/19 10:16 AM EST documented as of this encounter Care Teams Supervisor Heavy Equipment Relationship Specialty Start Date End Date Shelley Orellana MD [address] [place] [address] PCP - General Family Medicine 07/06/21 [facility] [address] [place] [address] Rock Loader 07/28/24 documented as of this encounter
--- OUTSIDE RECORDS SUMMARY | 2024-08-11 09:57 | XMS_ITS | Encounter Summary ---
Author Organization [employer] Address [address] [facility] [address] [place] [address] Care Team Providers Care Larder Cook Name Role Phone Shelley Orellana MD Primary Care Provider [phone] Reason for Visit * Reason Onset Date Comments Med Refill 12/06/2022 Encounter Details Date Type Department Care Team ([facility] st Contact Info) Description 12/06/2022 Telephone [facility] CHC MED & PEDS [address] [place], [place] [phone] Shelley Orellana MD [address] [place] [address] Med Refill Social History Tobacco Use Types [...] have a refill medication was sent to [facility] on 09/05/22 #90 with 1 refill. * Telephone Encounter - Reema Abigail - 12/06/2022 9:44 AM EDT Tc from pt requesting med refill for medication omeprazole (PriLOSEC) [address] capsule. documented in this encounter Plan of Treatment Upcoming Encounters Date Type Department Care Team (Late st Contact Info) Description 09/15/2024 10:30 AM EDT Clinical Support [facility] MED & PEDS [address] [place] [address] documented as of this encounter Visit Diagnoses Not on filedocumented in this encounter Additional Health Concerns Assessment Noted Time PHQ-9 Depression Total Score: 0 05/22/19 23 10:16 AM EST documented as of this encounter Care Teams Larder Cook Relationship Specialty Start Date End Date Shelley Orellana MD [address] [place] [address] PCP - General Family Medicine 07/06/21 [facility] [address] [address] Tire Retreader 07/28/24 documented as of this encounter
--- OUTSIDE RECORDS SUMMARY | 2024-08-11 09:57 | XMS_ITS | Encounter Summary ---
Author Organization [employer] Address [address] [facility] [address] [place] [address] Care Team Providers Care Truckman Name Role Phone Shelley Orellana MD Primary Care Provider [phone] Encounter Details Date Type Department Care Team (Latest Contact Info) Description 08/11/2024 Travel Social History Tobacco Use Types Packs/Day Years [...] housing situation today? I have bennett rosas 08/11/[address] you [...] AM EDT documented as of this encounter Functional Status * Over the [...] Description 09/15/2024 10:30 AM EDT Clinical Support [facility] MED & PEDS [address] [place] [address] documented as of this encounter Visit Diagnoses Not on filedocumented in this encounter Additional Health Concerns Assessment Noted Time PHQ-9 Depression Total Score: 0 08/12/19 25 9:06 AM EDT documented as of this encounter Care Teams Truckman Relationship Specialty Start Date End Date Shelley Orellana MD [address] [place] [address] PCP - General Family Medicine 07/06/21 [facility] [address] [facility] [address] [place] [address] Survey Operations Director 07/28/24 documented as of this encounter
--- OUTSIDE RECORDS SUMMARY | 2024-08-11 09:57 | XMS_ITS | Encounter Summary ---
Author Organization [employer] Address [address] [facility] [address] [place] [address] Care Team Providers Care Inner Layer Scrubber Tender Name Role Phone Shelley Orellana MD Primary Care Provider [phone] Reason for Visit * Reason Comments Med Refill Encounter Details Date Type Department Care Team ([facility] Contact Info) Description 07/02/2024 Refill [facility] MED & PEDS [address] [place], [place] [phone] Shelley Orellana MD [address] [place] [address] Social History Tobacco Use Types Packs/Day Years [...] Clinical Support [facility] MED & PEDS [address] [place] [address] documented as of this encounter Visit Diagnoses Not on filedocumented in this encounter Additional Health Concerns Assessment Noted Time PHQ-9 Depression Total Score: 0 05/22/19 10:16 AM EST documented as of this encounter Care Teams Inner Layer Scrubber Tender Relationship Specialty Start Date End Date Shelley Orellana MD [address] [place] [address] PCP - General Family Medicine 07/06/21 [facility] [address] [place] [address] Radio Mechanic Apprentice 07/28/24 documented as of this encounter
--- OUTSIDE RECORDS SUMMARY | 2024-08-11 09:57 | XMS_ITS | Clinical Summary ---
Author Organization [facility] Address [address] [place] [address] Phone Care Team Providers Care Filteration Operator Name Role Phone Shelley Orellana MD Primary Care Provider [phone] Allergies Active Allergy Reactions Criticality Noted Date [...] Due Date Last Done Comments Influenza Vaccine (Season Ended) 2024 04/23/2017 Pneumococcal Vaccine: 50+ Years Completed 09/19/2022, 10/12/2021 Hepatitis B Vaccine Aged Out No longe r eligible based on patient's age to complete this topic Insurance * Guarantor: Jitendra Dotson Account Type Relation to Patient Date of Phone Billing Address Personal/Family Self [address] ([id number]) [facility] ([id number]) Care Teams Filteration Operator Relationship Specialty Start Date End Date Shelley Orellana MD PCP - General Family Medicine 02/28/22
[2024-08-11 14:27] LABS: MANUAL DIFF FLAG NO
[2024-08-11 14:39] LABS: Basophils Absolute Auto 0.1 X10*3/uL (0.0-0.2); Basophils Percent Auto 0.8 % (0-2); Eosinophils Absolute Auto 0.1 X10*3/uL (0.0-0.4); Eosinophils Percent Auto 1.2 % (0-4); Hematocrit 42.8 % (42.0-52.0); Hemoglobin 14.6 g/dl (14.0-18.0); Imm Gran Abs Auto 0.03 X10*3/uL (0.00-0.03); Imm Gran Pct Auto 0.3 % (0.0-0.4); Lymphocytes Absolute Auto 1.1 X10*3/uL (1.2-4.9); Lymphocytes Percent Auto 12.2 % (20-40); Mean Corpuscular HGB Conc 34.1 g/dl (31.0-36.0); Mean Corpuscular Hemoglobin 31.9 pg (27.0-33.0); Mean Corpuscular Volume 93.7 fL (80.0-98.0); Mean Platelet Volume 11.2 fL (9.4-12.4); Monocytes Absolute Auto 0.9 X10*3/uL (0.1-1.2); Monocytes Percent Auto 9.4 % (2-11); Neutrophils Absolute Auto 6.9 x10*3/uL (2.0-8.3); Neutrophils Percent Auto 76.1 % (45-73); Platelet Count 263 X10*3/uL (160-400); Red Blood Count 4.57 X10*6/uL (4.60-5.80); Red Cell Distribution Width 13.5 % (11.0-16.0); White Blood Count 9.1 X10*3/uL (4.8-10.8)
[2024-08-11 15:00] LABS: Alanine Aminotransferase 44 U/L (0-40); Albumin Level 4.7 g/dL (3.5-5.0); Alkaline Phosphatase 79 U/L (39-117); Anion Gap 14 (12-20); Aspartate Amino Transferase 60 U/L (5-37); Bilirubin Total 0.5 mg/dL (0.0-1.0); Blood Urea Nitrogen 10 mg/dL (9-16); Calcium 10.3 mg/dL (8.4-10.2); Carbon Dioxide 27 mmol/L (22-29); Chloride 103 mmol/L (96-108); Cholesterol 225 mg/dL (<200); Estimated Glomerular Filt Rate > 60; Glucose Random 88 mg/dL (60-115); HDL Cholesterol 116 mg/dL (>40); LDL Cholesterol Calculated 100 mg/dL (<100); Potassium 4.2 mmol/L (3.3-5.1); Sodium 140 mmol/L (135-145); Total Protein 8.1 g/dL (6.5-8.0); Triglycerides 48 mg/dL (<150)
[2024-08-11 15:17] LABS: TSH reflex Free T4 1.12 uIU/mL (0.32-4.0)
[2024-08-11 15:24] LABS: Folate 5.6 ng/mL (> or = 4.0); Vitamin B12 658 pg/mL (200-900)
[2024-08-12 03:30] LABS: Syphilis Screen Nonreactive (Nonreactive)
[2024-08-12 04:07] LABS: HIV AB/AG Nonreactive (Nonreactive); HIV Num 1 0.19 S/CO (0.00-0.99)
[2024-08-14 18:49] LABS: Lyme Abs Screen <0.90 index
== END 2024-08-11 09:39 | disposition home or self-care (01) ==
LOC: HO.CHCLDS 09:38
PROVIDERS: Visit Provider Family Medicine
DX: I10 Essential (primary) hypertension (principal); R41.3 Other amnesia
CPT/HCPCS: 36415; 80053; 80061; 82607; 82746; 84443; 85025; 86617; 86618; 86780; 87389

== ENCOUNTER 2024-10-15 14:36 | Outpatient (REF) | payer OTHER, SELFPAY ==
--- NOTE | ~2024-10-15 | CT_ITS ---
CLINICAL HISTORY: Follow-up on pulmonary nodules CT chest with contrast Comparison: 04/18/2024 Findings: Emphysema with stable right basilar scarring. New posterior and lateral right lower lobe ground-glass densities. Question pneumonia, please correlate with symptoms. Interval resolution prior left upper lobe ground-glass nodule. Stable ground-glass nodule superior segment right lower lobe. No other significant parenchymal abnormality. No new or significant mediastinal adenopathy. Dense coronary artery calcifications noted. Severe fatty infiltration of the liver. No acute bony abnormality. Right infusion catheter tip SVC. Impression: New posterior and lateral right lower lobe ground-glass densities Question pneumonia, please correlate with symptoms Stable areas of scarring and other ground-glass nodules as above Interval resolution of previous left upper lobe ground-glass nodule This document has been electronically signed by: Nilson Grey MD on 10/15/2024 22:17:45
--- OUTSIDE RECORDS SUMMARY | 2024-10-15 15:08 | XMS_ITS | Clinical Summary ---
Author Organization [facility] Address [address] [place] [address] Phone Care Team Providers Care Pull Up Hand Name Role Phone Shelley Orellana MD Primary Care Provider [phone] Allergies Active Allergy Reactions Criticality Noted Date [...] Date Last Done Comments Influenza Vaccine (#1) 2024 04/23/2017 Pneumococcal Vaccine: 50+ Years Completed 09/19/2022, 10/12/2021 Hepatitis B Vaccine Aged Out No longe r eligible based on patient's age to complete this topic Insurance * Guarantor: Jitendra Dotson Account Type Relation to Patient Date of Phone Billing Address Personal/Family Self [address] ([id number]) [facility] ([id number]) Care Teams Pull Up Hand Relationship Specialty Start Date End Date Shelley Orellana MD PCP - General Family Medicine 02/28/22
--- OUTSIDE RECORDS SUMMARY | 2024-10-15 15:08 | XMS_ITS | Clinical Summary ---
Author Organization [employer] Address [address] [facility] [address] [place] [address] Care Team Providers Care Sample Builder Name Role Phone Shelley Orellana MD Primary Care Provider [phone] Allergies Active Allergy Reactions Criticality Noted Date Comments Sulfa Antibiotics 03/16/2022 Medications omeprazole (PriLOSEC) [address] capsule Take 1 capsule (40 mg) by mouth before breakfast. Do not crush or chew. 30 capsule 08/02/19 25 Active cholecalcifero l VITAMIN D (Vitamin D-3) 50 MCG (1999) tablet TAKE 1 TABLET BY MOUTH EVERY DAY 30 tablet 2 09/05/19 25 Active amLODIPine (Norvasc) 5 MG tablet TAKE 1 TABLET BY MOUTH ONCE EVERY DAY 30 tablet 3 10/07/19 25 Active Acetaminophen Extra Strength 500 MG tablet TAKE 2 TABLET BY ORAL ROUTE UP TO EVERY 8 HOURS FOR PAIN NEEDED 90 tablet 10/07/19 25 Active amLODIPine (Norvasc) 5 MG tablet Take 1 tablet (5 mg) by mouth Once per day. 30 tablet 08/02/19 25 025 Discontinued Acetaminophen Extra Strength 500 MG tablet TAKE 2 TABLET BY ORAL ROUTE UP TO EVERY 8 HOURS FOR PAIN NEEDED 90 tablet 09/11/19 25 025 Discontinued(Re order (will not trigger notification to Pharmacy)) Active Problems Problem Noted Date Diagnosed Date Memory impairment 08/11/2024 Assessment & Plan (08/12/2024 10:32 AM EDT): Patient initially reported to have memory problems, but this was later clarified as potentially inaccurate information. Patient had a memory screening with [employer] for [facility] which was normal. Patient will be scheduled for MoCA testing with nursing.. Further evaluation is planned to rule out underlying causes. Plan: - Laboratory tests ordered to evaluate memory concerns: - Lyme disease screening - Syphilis screening - HIV screening - Vitamin B12 level - Thyroid function tests - If MoCA testing is abnormal we will proceed with head imaging - Nurse to perform a more comprehensive memory evaluation at follow-up visit Rhinosinusitis 05/30/2022 Assessment & Plan (05/30/2022 10:36 AM EST): Symptoms c/w rhinosinutis, at moment will send decongestant an f/up as needed Hyperkalemia 03/16/2022 Hypertension 03/16/2022 Assessment & Plan (08/12/2024 10:31 AM EDT): Assessment: Patient reports taking his antihypertensive medication today. He is currently on amlodipine 5 mg with no reported side effects such as leg pain or feeling hot. Blood pressure was measured during the visit, but specific values were not provided in the transcript. Plan: - Continue amlodipine 5 mg - Patient to measure blood pressure at home and bring records to next appointment - Follow-up with nurse in 4 weeks - If blood pressure is high at follow-up, patient to see physician - Laboratory tests ordered (fasting) to check liver function and anemia status - Follow-up with physician in 3 months if nurse visit is normal Assessment & Plan (03/29/2023 9:31 AM EST): [...] Encounters Date Type Department Care Team Description 10/03/2024 Refill [facility] [address] [place] [address] Shelley Orellana MD 10/03/2024 Refill [facility] [address] [place] [address] Joseline Medrano, AUTOMATION SOFTWARE ENGINEER 09/15/2024 Telephone [facility] [address] [place], [place] [phone] Shelley Orellana MD No Show 09/09/2024 Refill [facility] [address] [place] [address] Joseline Medrano, AUTOMATION SOFTWARE ENGINEER 09/02/2024 Refill [facility] [address] [place] [address] Shelley Orellana MD 08/12/2024 Results Follow-Up [facility] [address] [place] [address] Shelley Orellana MD CBC auto differential, Comprehensive Metabolic Panel, TSH W/Reflex to FT4, Additional followed-up results: 4 08/11/2024 9:00 AM EDT Office Visit [facility] [address] [place] [address] Shelley Orellana MD Primary hypertension (Primary Dx); Memory impairment 08/11/2024 Travel 07/31/2024 Telephone [facility] [address] [place] [address] Shelley Orellana MD Med Refill 07/31/2024 Refill [facility] [address] [place] [address] Shelley Orellana MD from Last 3 Months [...] 82 08/11/2024 9:05 AM EDT Temperature 36.7 C (98 F) 08/11/2024 9:05 AM EDT Respiratory Rate 20 08/11/2024 9:05 AM EDT Oxygen Saturation 98% 08/11/2024 9:05 AM EDT Inhaled Oxygen Concentration - - Weight 59.8 kg (131 lb 12.8 oz) 08/11/2024 9:05 AM EDT Height 159 cm (5' 2.6 ) 08/11/2024 9:05 AM EDT Body Mass Index 23.65 08/11/2024 9:05 AM EDT Plan of Treatment Health Maintenance Due Date Last Done Comments Zoster Vaccines (1 of 2) 01/16/1992 RSV Patients and Patients Aged 60 years or older (1 - 1-dose 75+ series) 2017 COVID-19 Vaccine ( season) 2023 03/13/2022, 04/22/2021, 07/26/2020, Additional history exists Influenza Vaccine (#1) 2024 , 01/06/2022, 04/23/2017 Alcohol/Substance Use Screening 08/11/2025 08/11/2024 Depression Screening 08/11/2025 08/11/2024, 08/12/19 SDOH Screening 08/11/2025 08/11/2024 Tobacco Screening 08/11/2025 08/11/2024 Lipid Panel 08/11/2029 08/11/2024, 06/24/2020 DTaP/Tdap/Td Vaccines (2 - Td or [...] Associated Diagnosis Comments LIPID PANEL, STANDARD Routine 08/11/2024 9:40 AM EDT Primary hypertension VITAMIN B12/FOLATE, SERUM PANEL Routine 08/11/2024 9:40 AM EDT Memory impairment HIV 1/2 ANTIGEN/ANTIBODY, FOURTH GENERATION W/RFL Routine 08/11/2024 9:40 AM EDT Memory impairment LYME DISEASE AB W/REFL TO BLOT (IGG, IGM) Routine 08/11/2024 9:40 AM EDT Memory impairment SYPHILIS SCREEN Routine 08/11/2024 9:40 AM EDT Memory impairment TSH W/REFLEX TO FT4 Routine 08/11/2024 9 :40 AM EDT Primary hypertension COMPREHENSIVE METABOLIC PANEL Routine 08/11/2024 9:40 AM EDT Primary hypertension CBC WITH AUTO DIFFERENTIAL Routine 08/11/2024 9:40 AM EDT Primary hypertension from Last 3 Months Results * Syphilis Screen (08/11/2024 9:40 AM EDT) Pathologist [facility] Syphilis Screen Nonreactive Nonreactive [facility] Blood 08/11/2024 9:40 AM EDT 08/11/2024 2:29 PM EDT us Shelley Orellana MD LAB BLOOD ORDERABLES Final Re sult [facility] [address] [place] [phone] * Vitamin B12 (Cobalamin) and Folate Panel, Serum (08/11/2024 9:40 AM EDT) Vitamin B12 658 200 - 900 pg/mL [facility] Comment:NORMAL 200-900 PG/ML INDETERMINATE 160-199 PG/ML DEFICIENT < 160 PG/ML Folate 5.6 > or = 4.0 ng/mL [facility] Comment:Reference Values:> o r = 4.0 ng/mL< 4.0 ng/mL suggests folate deficiency Methotrexate, aminopterin and folinic acid(leucovorin) are chemotherapeutic agents whose molecularstructures are similar to folate; therefore, the Architectfolate assay cannot be used for patients using these drugs. Blood Venous blood specimen / Unknown 08/11/2024 9:40 AM EDT 08/11/2024 2:29 PM EDT Shelley Orellana MD LAB BLOOD ORDERABLES Final Re sult Performing Organization Address [facility] de Phone Number [facility] [address] [place] [phone] * TSH W/Reflex to FT4 (08/11/2024 9:40 AM EDT) [facility] TSH reflex Free T4 1.12 0.32 - 4.0 uIU/mL [facility] Blood Venous blood specimen / Unknown 08/11/2024 9:40 AM EDT 08/11/2024 2:29 PM EDT Shelley Orellana MD LAB BLOOD ORDERABLES Final Re sult Performing Organization Address [facility] Co de Phone Number [facility] [address] [place] [phone] * Lyme Disease Ab with Reflex to Blot (IgG, IgM) (08/11/2024 9:40 AM EDT) [facility] Lyme Antibody Screen <0.90 index [facility] Comment:Index Interpretation ----- < 0.90 Negative 0.90-1.09 Equivocal > 1.09 PositiveAs recommended by the Food and Drug Administration(FDA), all samples with positive or equivocalresults in a Borrelia burgdorferi antibody screenwill be tested using a blot method. Positive orequivocal screening test results should not beinterpreted as truly positive until verified as suchusing a supplemental assay (e.g., B. burgdorferi blot).The screening test and/or blot for B. burgdorferiantibodies may be falsely negative in early stagesof Lyme disease, including the period when erythemamigrans is apparent.THIS TEST WAS PERFORMED AT:[facility] [place] [phone] SEARS MD Lyme Blot TNP [facility] 08/11/2024 9:40 AM EDT 08/11/2024 2:29 PM EDT us Shelley Orellana MD LAB BLOOD ORDERABLES Final Re sult [facility] [address] [place] [phone] * (ABNORMAL) CBC auto differential (08/11/2024 9:40 AM EDT) White Blood Count 9.1 4.8 - 10.8 X10*3/uL [facility] Red Blood Count 4.57(L) 4.60 - 5.80 X10*6/uL [facility] Hemoglobin 14.6 14.0 - 18.0 g/dl [facility] Hematocrit 42.8 42.0 - 52.0 % [facility] Mean Corpuscular Volume 93.7 80.0 - 98.0 fL [facility] Mean Corpuscular Hemoglobin 31.9 27.0 - 33.0 pg [facility] Mean Corpuscular HGB Conc 34.1 31.0 - 36.0 g/dl [facility] Red Cell Distribution Width 13.5 11.0 - 16.0 % [facility] Platelet Count 263 160 - 400 X10*3/uL [facility] Mean Platelet Volume 11.2 9.4 - 12.4 fL [facility] Neutrophils Percent Auto 76.1(H) 45 - 73 % [facility] Imm Gran Pct Auto 0.3 0.0 - 0.4 % [facility] Lymphocytes Percent Auto 12.2(L) 20 - 40 % [facility] Monocytes Percent Auto 9.4 2 - 11 % [facility] Eosinophils Percent Auto 1.2 0 - 4 % [facility] Basophils Percent Auto 0.8 0 - 2 % [facility] NRBC Pct Auto 0.0 0.0 - 0.2 /100WBC [facility] Neutrophils Absolute Auto 6.9 2.0 - 8.3 x10*3/uL [facility] Imm Gran Abs Auto 0.03 0.00 - 0.03 X10*3/uL [facility] Lymphocytes Absolute Auto 1.1(L) 1.2 - 4.9 X10*3/uL [facility] Monocytes Absolute Auto 0.9 0.1 - 1.2 X10*3/uL [facility] Eosinophils Absolute Auto 0.1 0.0 - 0.4 X10*3/uL [facility] Basophils Absolute Auto 0.1 0.0 - 0.2 X10*3/uL [facility] NRBC Abs Auto 0.000 0.0 - 0.012 X10*3/uL [facility] Blood Venous blood specimen / Unknown 08/11/2024 9:40 AM EDT 08/11/2024 2:22 PM EDT us Shelley Orellana MD LAB BLOOD ORDERABLES Final Re sult [facility] [address] [place], [place] [phone] * HIV-1/2 Antigen and Antibodies, Fourth Generation, with Reflexes (08/11/2024 9:40 AM EDT) HIV AB/AG Nonreactive Nonreactive [facility] Comment:HIV-1 p24 Ag and/or HIV-1/HIV-2 Ab not detected.A test result that is nonreactive does not exclude thepossibility of exposure to or infection with HIV-1 and/orHIV-2. Nonreactive results in this assay for individualswith prior exposure to HIV-1 and/or HIV-2 may be due toantigen and antibody levels that are below the limit ofdetection of this assay.The [employer] HIV Ag/Ab Combo assay result andsupplemental assay results should be interpreted inconjunction with the patient's clinical presentation,history and other laboratory results. If the results areinconsistent with clinical evidence, additional testing issuggested to confirm the result. Blood Venous blood specimen / Unknown 08/11/2024 9:40 AM EDT 08/11/2024 2:29 PM EDT us Shelley Orellana MD LAB BLOOD ORDERABLES Final Re sult [facility] [address] [place] [address] [phone] * (ABNORMAL) Lipid Panel, Standard (08/11/2024 9:40 AM EDT) Triglycerides 48 <150 mg/dL [facility] Comment:Slight Lipemia.Maritza able Triglyceride: less than 150 mg/dLBorderline High Triglyceride 150-199 mg/dLHigh Triglyceride: 200-499 mg/dLVery High Triglyceride: greater than or equal to 5OO mg/dL Cholesterol 225(H) <200 mg/dL [facility] Comment:Desirable Cholestero l: less than 200 mg/dLBorderline High Cholesterol: 200-239 mg/dLHigh Cholesterol: greater than 239 mg/dL LDL Cholesterol Calculated 100(H) <100 mg/dL [facility] Comment:Desirable LDL: less than 100 mg/dLNear Optimal/Above Optimal LDL: 110- 129 mg/dLBorderline High LDL: 130-159 mg/dLHigh LDL: 160-189 mg/dLVery High LDL: greater than or equal to 190 mg/dL HDL Cholesterol 116 >40 mg/dL [facility] Comment:Desirable HDL: great er than 40 mg/dL Note: This HDL assay may give artificially low results in patients with liver disease. Blood Venous blood specimen / Unknown 08/11/2024 9:40 AM EDT 08/11/2024 2:29 PM EDT us Shelley Orellana MD LAB BLOOD ORDERABLES Final Re sult [facility] [address] [place] [phone] * (ABNORMAL) Comprehensive Metabolic Panel (08/11/2024 9:40 AM EDT) Sodium 140 135 - 145 mmol/L [facility] Potassium 4.2 3.3 - 5.1 mmol/L [facility] Chloride 103 96 - 108 mmol/L [facility] Carbon Dioxide 27 22 - 29 mmol/L [facility] Anion Gap 14 12 - 20 [facility] Urea Nitrogen (BUN) 10 9 - 16 mg/dL [facility] Creatinine, Serum 0.85 0.5 - 1.4 mg/dL [facility] Estimated Glomerular Filt Rate >60 [facility] Comment:Chronic Kidney Disea se: Estimated GFR < 60 mL/min/[id number] Kidney Disease: Estimated GFR < 15 mL/min/1.73m2 Glucose 88 60 - 115 mg/dL [facility] Calcium 10.3(H) 8.4 - 10.2 mg/dL [facility] Bilirubin, Total 0.5 0.0 - 1.0 mg/dL [facility] Aspartate Amino Transferase 60(H) 5 - 37 U/L [facility] Alanine Aminotransferase 44(H) 0 - 40 U/L [facility] Total Protein 8.1(H) 6.5 - 8.0 g/dL [facility] Albumin Level 4.7 3.5 - 5.0 g/dL [facility] Alkaline Phosphatase 79 39 - 117 U/L [facility] Blood Venous blood specimen / Unknown 08/11/2024 9:40 AM EDT 08/11/2024 2:29 PM EDT us Shelley Orellana MD LAB BLOOD ORDERABLES Final Re sult [facility] [address] [place] [phone] from Last 3 Months Insurance [facility] [employer] OPT[employer] (HMO D-SNP) [facility] ST[facility] Care Teams Sample Builder Relationship Specialty Start Date End Date Shelley Orellana MD [address] [place] [address] PCP - General Family Medicine 07/06/21 [facility] [address] [facility] [address], [place] [address] Senior Engineer 07/28/24
[2024-10-15] MEDS: iohexoL 350 MG/ML 100 ML INFUS..BTL IV (15:26)
[2024-10-16 08:50] LABS: Creatinine POC 1.2 mg/dL (0.5-1.4); GFR POC > 60
== END 2024-10-15 14:37 | disposition home or self-care (01) ==
LOC: HO.CT 14:36
PROVIDERS: PCP Family Medicine; Visit Provider Internal Medicine Medical Oncology
DX: C34.91 Malignant neoplasm of unspecified part of right bronchus or lung (principal)
CPT/HCPCS: 71260; 82565; Q9967

== ENCOUNTER → 2024-10-15 14:38 | Outpatient (BNV) | payer OTHER, SELFPAY | PROVIDERS: PCP Family Medicine; Visit Provider Radiology Diagnostic Radiology | DX: R91.8 Other nonspecific abnormal finding of lung field (principal) | CPT/HCPCS: 71260 ==

== ENCOUNTER 2024-10-23 10:14 | Outpatient (AMB) | payer OTHER, SELFPAY ==
[2024-10-23 10:26] VITALS: BP 120/74; PULSE 87; O2SAT 98; BMI 24.0
--- NOTE | 2024-10-23 10:26 | MHC.OFFVIS ---
Vital Signs 10/23/24 10:26 Height 5 ft 3 in Weight 135 lb 9.349 oz BMI 24.0 BP 120/74 Blood Pressure Location Lt brachial Position Sitting Pulse 87 Pulse Source Pulse Oximeter Pulse Oximetry (%) 98 Oxygen Delivery Method Room Air Intake Visit Reasons: Pulmonary Nodules Intake Note: pt is here for follow up and feels good Allergies sulfamethazine (SULFAMETHAZINE) Allergy (Intermediate, Verified 10/23/24 10:48) ITCHING Medication List - Last Reconciled 10/23/24 by Margi Joseph MD acetaminophen (Tylenol Extra Strength) 500 mg PO Q6H PRN amlodipine 5 mg PO DAILY cholecalciferol (vitamin D3) 50 mcg PO DAILY omeprazole 1 cap PO DAILY Do you need a note to return to daycare/school/sports/work: No HPI HPI Pulmonary Nodules: Details: 84 YEARS OLD LATVI[employer]-SPEAKING VERY PLEASANT GENTLEMAN IS HERE FOR HIS ROUTINE FOLLOW AFTER ONE YEAR . HIS ONCOLOGIST, DR. MICHAEL GOFF , REFERRED HIM TO SEE ME, BECAUSE OF ABNORMAL CT SCAN OF THE CHEST, SHOWING A NONSPECIFIC OPACIFICATION IN THE RIGHT LOWER LOBE. HE DENIES ANY RECENT RESPIRATORY INFECTION. HAS ONLY MILD INTERMITTENT COUGH WHICH IS NOT ANY WORSE THAN BEFORE. HE HAS HAD NO FEVER CHILLS OR WHEEZING. HIS WEIGHT HAS REMAINED STABLE. HE IS NOT REQUIRING TO USE ANY INHALER. HE ALSO HAS NO SIGNIFICANT NASAL CONGESTION OR POSTNASAL DRIP. HE QUIT SMOKING IN 2018. HE HAS HISTORY OF RIGHT MIDDLE LOBE LOBECTOMY, FOR ADENO CARCINOMA IN 2018, WITHOUT ANY RECURRENCE HE IS BEING FOLLOWED FOR A DENSITY IN THE RIGHT UPPER LOBE ,( CONSIDERED TO BE RESIDUAL SCARRING ). 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) Surgical History History of biopsy (~2015) History of lung biopsy (~2015) Port-A-Cath in place History of lobectomy of lung (~2017) History of dental surgery Family History Other No family history of cancer Social History Household Members: None Housing: Apartment Are you a primary child care team lead to a significant other at home: No Do you presently have visiting nurse or other home services: 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) Alcohol intake: former Patient Tobacco Use Status: Former Tobacco user Tobacco use type: Cigarette service: No Current occupational status: disabled Review of Systems Const All systems reviewed & are unremarkable except as noted in HPI and below Eyes Reports no additional complaints ENT Reports no additional complaints Card Denies chest pain, Denies syncope, Denies irregular heart rhythm and Denies leg edema Resp Reports as per HPI GI Denies no additional complaints Reports no additional complaints Musc Reports no additional complaints Skin/Breast Reports system reviewed and no additional complaints, except as documented Neuro Reports no additional complaints and Denies syncope Psych Reports no additional complaints Endo Reports no additional complaints Aller/Immun Reports no additional complaints Physical Exam Vital Signs: Last Vital Signs Pulse 87 10/23/24 10:26 BP 120/74 10/23/24 10:26 Pulse Ox 98 10/23/24 10:26 Oxygen Delivery Method Room Air 10/23/24 10:26 BMI result Body Mass Index 24.0 Const General: healthy appearing, comfortable, no acute distress, alert and awake Orientation/consciousness: patient oriented x3 HEENT Head: Yes normal to inspection General nose exam: No nasal polyps present and No nasal discharge present Face and sinus: Yes sinuses nontender Mouth: oropharynx normal Throat: Yes posterior oropharynx normal Eyes General: appearance normal, both eyes and all related structures Neck Neck: Yes normal visual inspection, Yes no lymphadenopathy, Yes trachea midline and Yes no JVD Thyroid: Thyroid normal Chest Chest palpation & inspection: normal inspection of the chest, normal palpation of entire chest wall, no tenderness and other (Has a sub cutaneous Jose David cath. in Rt pectoral area and Rt side of neck .) Resp Other: Percussion note is resonant, he has good breath sounds on both sides, no wheezes or rhonchi are heard Cardio Palpation: normal PMI Rate: regular rate Rhythm: regular rhythm Heart sounds: no gallops and no murmurs Peripheral pulses: Peripheral pulses 2+ throughout GI Palpation (GI): Soft to palpation, nontender, No hepatosplenomegaly present and no masses Auscultation: normal bowel sounds Back/Spine/Pelvis Thoracic/Lumbar Spine: thoracic and lumbar spine normal to inspection Skin General skin exam: no rashes or lesions noted Neuro General: patient oriented x3 and no focal motor deficits Cranial nerves: Yes CN's II-XII intact bilaterally Extrem General: Yes normal to inspection, Yes no clubbing, cyanosis or edema and Yes no calf tenderness Psych Appearance: grossly normal and well kempt Speech and movement: Normal speech and movement present Results Reviewed Results Reviewed: CT SCAN OF THE CHEST : 10/05/24 Impression: New posterior and lateral right lower lobe ground-glass densities Question pneumonia, please correlate with symptoms Stable areas of scarring and other ground-glass nodules as above Interval resolution of previous left upper lobe ground-glass nodule This document has been electronically signed by: Nilson Grey MD on 10/15/2024 22:17:45 Assessment & Plan Assessment & Plan (1) Adenocarcinoma of right lung: Onset Date: ~2014 Comment: (dx 01/2015 in [place] - s/p RML lobectomy 07/2017) with Davinci Procedure . No recurrence . Code(s): C34.91 - Malignant neoplasm of unspecified part of right bronchus or lung Category: Medical Plan: CONTINUE TO MONITOR (2) History of smoking at least 1 pack per day for at least 30 years: Comment: THIS GENTLEMAN HAS PAST HISTORY OF SMOKING 1 PACK A DAY FOR AT LEAST 30 YEARS BUT HE QUIT IN 2018 WHEN DIAGNOSED TO HAVE ADENO CARCINOMA OF THE RIGHT LUNG. Code(s): Z87.891 - Personal history of nicotine dependence Category: Social Hx Plan: GETTING PERIODIC CT SCAN FOR FOLLOW-UP. COMMENDED FOR NOT SMOKING. (3) Abnormal CT scan of lung: Comment: PATIENT IS FOLLOWED BY DR. GOFF FOR HIS ADENO CARCINOMA IN THE PAST, AND ALSO HE HAS HAD A NONSPECIFIC GROUND-GLASS DENSITY IN RIGHT UPPER LOBE. HAD A CT SCAN ON 10/05 , THE GROUND-GLASS DENSITY IN THE RIGHT UPPER LOBE HAS ACTUALLY CLEARED. THERE WAS A NEW FINDING OF DENSITY IN THE SUPERIOR SEGMENT OF LOWER LOBE. CLINICALLY PATIENT DOES NOT HAVE HISTORY OF ANY NEW RESPIRATORY SYMPTOMS, AND THE DENSITY SEEMS TO BE JUST NONSPECIFIC, INFLAMMATORY. Code(s): R91.8 - Other nonspecific abnormal finding of lung field Category: Medical Plan: THE PLAN IS TO REPEAT CT SCAN IN 6 MONTHS, AND TAKE IT FROM THE. IF IN THE MEANTIME HE STARTS HAVING INCREASED COUGH WHEEZING ON EXPECTORATION OR FEVER/CHILLS THEN HE IS TO REPORT TO US IMMEDIATELY. Orders: Orders CT chest wo IV con 5 Months C34.91 - Malignant neoplasm of unspecified part of right bronchus or lung, R91.8 - Other nonspecific abnormal finding of lung field, Z87.891 - Personal history of nicotine dependence Coding Level of Care Code Est Pt Level 3 (23241) Diagnoses Adenocarcinoma of right lung C34.91 History of smoking at least 1 pack per day for at least [address] scan of lung R91.8
--- OUTSIDE RECORDS SUMMARY | 2024-10-23 10:58 | XMS_ITS | Clinical Summary ---
Author Organization [employer] Address [address] [facility] 7t [place] [address] Care Team Providers Care Security Screener Name Role Phone Shelley Orellana MD Primary Care Provider [phone] Allergies Active Allergy Reactions Criticality Noted Date [...] information. Patient had a memory screening with DIRECTOR OF SPEECH PATHOLOGY for CCA which was normal. Patient will [...] Encounters Date Type Department Care Team Description 10/15/2024 Orders Only GENERIC EXTERNAL DATA DEPARTMENT Provider, Generic External Data 10/03/2024 Refill [facility] [address] [place] [address] Shelley Orellana MD 10/03/2024 Refill [facility] [address] [place] [address] Joseline Medrano, FABRIC WORKER FITTER 09/15/2024 Telephone [facility] [address] [place] [phone] Shelley Orellana MD No Show 09/09/2024 Refill [facility] [address] [place] [address] Joseline Medrano, FABRIC WORKER FITTER 09/02/2024 Refill [facility] [address] [place] [address] Shelley Orellana MD 08/12/2024 Results Follow-Up [facility] [address] [place] [address] Shelley Orellana MD CBC auto differential, Comprehensive Metabolic Panel, TSH W/Reflex to FT4, Additional followed-up results: 4 08/11/2024 9:00 AM EDT Office Visit [facility] [address] [place] [address] Shelley Orellana MD Primary hypertension (Primary Dx); Memory impairment 08/11/2024 Travel 07/31/2024 Telephone [facility] [address] [place] [phone] Shelley Orellana MD Med Refill 07/31/2024 Refill [facility] [address] [place] [address] Shelley Orellana MD from Last 3 Months [...] Care Team (Late st Contact Info) Description 12/03/2024 9:45 AM EDT Office Visit [facility] [address] [place], [place] [phone] Shelley Orellana MD [address] [place], [place] [phone] Health Maintenance Due Date Last Done Comments [...] Diagnosis Comments CT CHEST W CONTRAST Routine 10/15/2024 1 0:17 PM EDT POCT CREATININE GFR Routine 10/15/2024 3 :00 PM EDT LIPID PANEL, STANDARD Routine 08/11/2024 9:40 AM [...] hypertension from Last 3 Months Results * CT Chest w/ Contrast (10/15/2024 10:17 PM EDT) Anatomical Region Laterality Modality Body, Chest Computed Tomogra phy 10/15/2024 10:1 7 PM EDT Narrative 10/15/2024 10:18 PM EDT [address] [address] [address] Scan Report Signed Patient: Jitendra Dotson MR#: [id number] : 1940 Acct:[id number] Age/Sex: 84 / M ADM Date: 10/15/24 Loc: HO.CT Attending Dr: Gill Manley MD Ordering Physician: Gill Manley MD Date of Service: 10/15/24 Procedure(s): CT chest w IV con Accession Number(s): [id number] cc: Gill Manley MD; Shelley Orellana MD Report Number: [id number]: Total DLP = 82.00 mGy-cm CLINICAL HISTORY: Follow-up on pulmonary nodules CT chest with contrast Comparison: 04/18/2024 Findings: Emphysema with stable right basilar scarring. New posterior and lateral right lower lobe ground-glass densities. Question pneumonia, please correlate with symptoms. Interval resolution prior left upper lobe ground-glass nodule. Stable ground-glass nodule superior segment right lower lobe. No other significant parenchymal abnormality. No new or significant mediastinal adenopathy. Dense coronary artery calcifications noted. Severe fatty infiltration of the liver. No acute bony abnormality. Right infusion catheter tip SVC. Impression: New posterior and lateral right lower lobe ground-glass densities Question pneumonia, please correlate with symptoms Stable areas of scarring and other ground-glass nodules as above Interval resolution of previous left upper lobe ground-glass nodule This document has been electronically signed by: Nilson Grey MD on 10/15/2024 22:17:45 Dictated By: Nilson Grey MD Signed By: <Electronically signed by Nilson Grey MD in OV> 10/15/242217 DD/ 16 TD/TT: 10/15/242216 Windows System Admin: Procedure Note Donotuseinterpreter, Image - 10/15/[address] [address] [address] Scan Report Signed Patient: Jitendra DotsonMR#: [id number] : 1940cct:[id number] Age/Sex: 84 / MADM Date: 10/15/24 Loc: HO.CT Attending Dr: Gill Manley MD Ordering Physician: Gill Manley MD Date of Service: 10/15/24 Procedure(s): CT chest w IV con Accession Number(s): [id number] cc: Gill Manley MD; Shelley Orellana MD Report Number: [id number]: Total DLP = 82.00 mGy-cm CLINICAL HISTORY: Follow-up on pulmonary nodules CT chest with contrast Comparison: 04/18/2024 Findings: Emphysema with stable right basilar scarring. New posterior and lateral right lower lobe ground-glass densities. Question pneumonia, please correlate with symptoms. Interval resolution prior left upper lobe ground-glass nodule. Stable ground-glass nodule superior segment right lower lobe. No other significant parenchymal abnormality. No new or significant mediastinal adenopathy. Dense coronary artery calcifications noted. Severe fatty infiltration of the liver. No acute bony abnormality. Right infusion catheter tip SVC. Impression: New posterior and lateral right lower lobe ground-glass densities Question pneumonia, please correlate with symptoms Stable areas of scarring and other ground-glass nodules as above Interval resolution of previous left upper lobe ground-glass nodule This document has been electronically signed by: Nilson Grey MD on 10/15/2024 22:17:45 Dictated By: Nilson Grey MD Signed By: <Electronically signed by Nilson Grey MD in OV> 10/15/242217 DD/ 16 TD/TT: 10/15/242216 Windows System Admin: [facility] External Provider IMG CT PROCEDURES Edited Result - Final * Syphilis Screen (08/11/2024 9:40 AM EDT) Syphilis Screen Nonreactive Nonreactive [facility] Blood 08/11/2024 9:40 AM EDT 08/11/2024 2:29 PM EDT Shelley Orellana MD LAB BLOOD ORDERABLES Final Re sult Performing Organization Address [facility]/ZIP Co de Phone Number [facility] [address] [place] [phone] * Vitamin B12 (Cobalamin) and Folate Panel, Serum (08/11/2024 9:40 AM EDT) Vitamin B12 658 200 - 900 pg/mL [facility] Comment:NORMAL 200-900 PG/ML INDETERMINATE 160-199 PG/ML DEFICIENT < 160 PG/ML Folate 5.6 > or = 4.0 ng/mL [facility] Comment:Reference Values:> o r = [...] ORDERABLES Final Re sult Performing Organization Address [facility] Co de Phone Number [facility] [address] [place] [phone] * TSH W/Reflex to FT4 (08/11/2024 9:40 AM EDT) TSH reflex Free T4 1.12 0.32 - 4.0 uIU/mL [facility] Blood Venous blood specimen / Unknown 08/11/2024 9:40 AM EDT 08/11/2024 2:29 PM EDT Shelley Orellana MD LAB BLOOD ORDERABLES Final Re sult Performing Organization Address [facility] Co de Phone Number [facility] [address] [place] [phone] * Lyme Disease Ab with Reflex to Blot (IgG, IgM) (08/11/2024 9:40 AM EDT) [facility] Lyme Antibody Screen <0.90 index [facility] Comment:Index Interpretation ----- < 0.90 [...] when erythemamigrans is apparent.THIS TEST WAS PERFORMED AT:[facility] [place] [id number] SEARS MD Lyme Blot [facility] 08/11/2024 9:40 AM EDT 08/11/2024 2:29 PM EDT us Shelley Orellana MD LAB BLOOD ORDERABLES Final Re sult [facility] [address] [place] [phone] * (ABNORMAL) CBC auto differential (08/11/2024 9:40 AM EDT) [facility] White Blood Count 9.1 4.8 - 10.8 X10*3/uL [facility] Red Blood Count 4.57(L) 4.60 - 5.80 X10*6/uL [facility] Hemoglobin 14.6 14.0 - 18.0 g/dl [facility] Hematocrit 42.8 42.0 - 52.0 % [facility] Mean Corpuscular Volume 93.7 80.0 - 98.0 fL [facility] Mean Corpuscular Hemoglobin 31.9 27.0 - 33.0 pg [facility] Mean Corpuscular HGB Conc 34.1 31.0 - 36.0 g/dl [facility] Red Cell Distribution Width 13.5 11.0 - 16.0 % [facility] Platelet Count 263 160 - 400 X10*3/uL [facility] Mean Platelet Volume 11.2 9.4 - 12.4 fL [facility] Neutrophils Percent Auto 76.1(H) 45 - 73 % [facility] Imm Gran Pct Auto 0.3 0.0 - 0.4 % [facility] Lymphocytes Percent Auto 12.2(L) 20 - 40 % [facility] Monocytes Percent Auto 9.4 2 - 11 % [facility] Eosinophils Percent Auto 1.2 0 - 4 % [facility] Basophils Percent Auto 0.8 0 - 2 % [facility] NRBC Pct Auto 0.0 0.0 - 0.2 /100WBC [facility] Neutrophils Absolute Auto 6.9 2.0 - 8.3 x10*3/uL [facility] Imm Gran Abs Auto 0.03 0.00 - 0.03 X10*3/uL [facility] Lymphocytes Absolute Auto 1.1(L) 1.2 - 4.9 X10*3/uL [facility] Monocytes Absolute Auto 0.9 0.1 - 1.2 X10*3/uL [facility] Eosinophils Absolute Auto 0.1 0.0 - 0.4 X10*3/uL [facility] Basophils Absolute Auto 0.1 0.0 - 0.2 X10*3/uL [facility] NRBC Abs Auto 0.000 0.0 - 0.012 X10*3/uL [facility] Blood Venous blood specimen / Unknown 08/11/2024 9:40 AM EDT 08/11/2024 2:22 PM EDT us Shelley Orellana MD LAB BLOOD ORDERABLES Final Re sult [facility] [address] [place] [phone] * HIV-1/2 Antigen and Antibodies, Fourth Generation, with Reflexes (08/11/2024 9:40 AM EDT) HIV AB/AG Nonreactive Nonreactive [facility] Comment:HIV-1 p24 Ag and/or HIV-1/HIV-2 Ab not detected.A test result that is nonreactive does not exclude thepossibility of exposure to or infection with HIV-1 and/orHIV-2. Nonreactive results in this assay for individualswith prior exposure to HIV-1 and/or HIV-2 may be due toantigen and antibody levels that are below the limit ofdetection of this assay.The [facility] HIV Ag/Ab Combo assay result andsupplemental assay results should be interpreted inconjunction with the patient's clinical presentation,history and other laboratory results. If the results areinconsistent with clinical evidence, additional testing issuggested to confirm the result. Blood Venous blood specimen / Unknown 08/11/2024 9:40 AM EDT 08/11/2024 2:29 PM EDT us Shelley Orellana MD LAB BLOOD ORDERABLES Final Re sult [facility] [address] [place] [phone] * (ABNORMAL) Lipid Panel, Standard (08/11/2024 9:40 AM EDT) Triglycerides 48 <150 mg/dL [facility] Comment:Slight Lipemia.Maritza able Triglyceride: less than 150 mg/dLBorderline High Triglyceride 150-199 mg/dLHigh Triglyceride: 200-499 mg/dLVery High Triglyceride: greater than or equal to 5OO mg/dL Cholesterol 225(H) <200 mg/dL [facility] Comment:Desirable Cholestero l: less than 200 mg/dLBorderline High Cholesterol: 200-239 mg/dLHigh Cholesterol: greater than 239 mg/dL LDL Cholesterol Calculated 100(H) <100 mg/dL [facility] Comment:Desirable LDL: less than 100 mg/dLNear Optimal/Above Optimal LDL: 110- 129 mg/dLBorderline High LDL: 130-159 mg/dLHigh LDL: 160-189 mg/dLVery High LDL: greater than or equal to 190 mg/dL HDL Cholesterol 116 >40 mg/dL [facility] Comment:Desirable HDL: great er than 40 mg/dL Note: This HDL assay may give artificially low results in patients with liver disease. Blood Venous blood specimen / Unknown 08/11/2024 9:40 AM EDT 08/11/2024 2:29 PM EDT us Shelley Orellana MD LAB BLOOD ORDERABLES Final Re sult [facility] [address] [place] [phone] [phone] * (ABNORMAL) Comprehensive Metabolic Panel (08/11/2024 9:40 AM EDT) Sodium 140 135 - 145 mmol/L [facility] Potassium 4.2 3.3 - 5.1 mmol/L [facility] Chloride 103 96 - 108 mmol/L [facility] Carbon Dioxide 27 22 - 29 mmol/L [facility] Anion Gap 14 12 - 20 [facility] Urea Nitrogen (BUN) 10 9 - 16 mg/dL [facility] Creatinine, Serum 0.85 0.5 - 1.4 mg/dL [facility] Estimated Glomerular Filt Rate >60 [facility] Comment:Chronic Kidney Disea se: Estimated GFR < 60 mL/min/1.85y9Spturz Kidney Disease: Estimated GFR < 15 mL/min/1.73m2 Glucose 88 60 - 115 mg/dL [facility] Calcium 10.3(H) 8.4 - 10.2 mg/dL [facility] Bilirubin, Total 0.5 0.0 - 1.0 mg/dL [facility] Aspartate Amino Transferase 60(H) 5 - 37 U/L [facility] Alanine Aminotransferase 44(H) 0 - 40 U/L [facility] Total Protein 8.1(H) 6.5 - 8.0 g/dL [facility] Albumin Level 4.7 3.5 - 5.0 g/dL [facility] Alkaline Phosphatase 79 39 - 117 U/L [facility] Blood Venous blood specimen / Unknown 08/11/2024 9:40 AM EDT 08/11/2024 2:29 PM EDT us Shelley Orellana MD LAB BLOOD ORDERABLES Final Re sult [facility] [address] [place] [phone] [phone] from Last 3 Months Insurance [facility] [employer] (HMO D-SNP) [facility] Care Teams Security Screener Relationship Specialty Start Date End Date Shelley Orellana MD [address] [place] [address] PCP - General Family Medicine 07/06/21 [facility] [address] [address] Epic Ambulatory Analyst 07/28/24
--- OUTSIDE RECORDS SUMMARY | 2024-10-23 10:58 | XMS_ITS | Clinical Summary ---
Author Organization [facility] Address [address] [place] [address] Phone Care Team Providers Care Linseed Oil Temperer Name Role Phone Shelley Orellana MD Primary Care Provider [phone] Allergies Active Allergy Reactions Criticality Noted Date [...] Phone Billing Address Personal/Family Self 1940 [address] ([id number]) [facility] ([id number]) Care Teams Linseed Oil Temperer Relationship Specialty Start Date End Date Shelley Orellana MD PCP - General Family Medicine 02/28/22
== END 2024-10-23 10:46 | disposition home or self-care (01) ==
LOC: HO.HPS 10:14
PROVIDERS: PCP Family Medicine; Visit Provider Internal Medicine
DX: C34.91 Malignant neoplasm of unspecified part of right bronchus or lung (principal); Z87.891 Personal history of nicotine dependence; R91.8 Other nonspecific abnormal finding of lung field
CPT/HCPCS: 99213

== ENCOUNTER → 2024-10-23 10:14 | Outpatient (BNVA) | payer OTHER, SELFPAY | PROVIDERS: PCP Family Medicine; Visit Provider Internal Medicine | DX: C34.91 Malignant neoplasm of unspecified part of right bronchus or lung (principal); R91.8 Other nonspecific abnormal finding of lung field; Z87.891 Personal history of nicotine dependence | CPT/HCPCS: 99212 ==

== ENCOUNTER 2024-11-19 09:37 | Outpatient (REF) | payer OTHER, SELFPAY ==
--- OUTSIDE RECORDS SUMMARY | 2024-11-19 10:15 | XMS_ITS | Encounter Summary ---
Author Organization [employer] Address [address] [facility] [address] 7[address] [place] [address] Care Team Providers Care Spool Fixer Name Role Phone Shelley Orellana MD Primary Care Provider [phone] Reason for Visit * Reason Comments Med Refill Encounter Details Date Type Department Care Team ([facility] Contact Info) Description 07/02/2024 Refill [facility] [address] [place], [place] [phone] Shelley Orellana MD [address] [place] [address] Social History Tobacco Use Types Packs/Day Years [...] Description 12/03/2024 9:45 AM EDT Office Visit [facility] [address] [place] [address] Shelley Orellana MD [address] [place] [address] documented as of this encounter Visit Diagnoses Not on filedocumented in this encounter Additional Health Concerns Assessment Noted Time PHQ-9 Depression Total Score: 0 05/22/19 23 10:16 AM EST documented as of this encounter Care Teams Spool Fixer Relationship Specialty Start Date End Date Shelley Orellana MD [address] [place] [address] PCP - General Family Medicine 07/06/21 [facility] [address] [place] [address] Loan Adviser 07/28/24 documented as of this encounter
--- OUTSIDE RECORDS SUMMARY | 2024-11-19 10:15 | XMS_ITS | Encounter Summary ---
Author Organization [employer] Address [address] [facility] 7t [place] [address] Care Team Providers Care Wheel Assembler Name Role Phone Shelley Orellana MD Primary Care Provider [phone] Reason for Visit * Reason Onset Date Comments Med Refill 12/06/2022 Encounter Details Date Type Department Care Team ([facility] st Contact Info) Description 12/06/2022 Telephone [facility] [address] [place] [address] Shelley Orellana MD [address] [place] [address] Med Refill Social History Tobacco Use Types [...] have a refill medication was sent to [facility] on 09/05/22 #90 with 1 refill. * Telephone Encounter - Reema Hayes - 12/06/2022 9:44 AM EDT Tc from pt requesting med refill for medication omeprazole (PriLOSEC) [address] capsule. documented in this encounter Plan of Treatment Upcoming Encounters Date Type Department Care Team (Late st Contact Info) Description 12/03/2024 9:45 AM EDT Office Visit [facility] [address] [place] [address] Shelley Orellana MD [address] [place] [address] documented as of this encounter Visit Diagnoses Not on filedocumented in this encounter Additional Health Concerns Assessment Noted Time PHQ-9 Depression Total Score: 0 05/22/19 23 10:16 AM EST documented as of this encounter Care Teams Wheel Assembler Relationship Specialty Start Date End Date Shelley Orellana MD [address] [place] [address] PCP - General Family Medicine 07/06/21 [facility] [address] [place] [address] Mandarin Speaking Nanny 07/28/24 documented as of this encounter
--- OUTSIDE RECORDS SUMMARY | 2024-11-19 10:15 | XMS_ITS | Encounter Summary ---
Author Organization [employer] Address [address] [facility] [address] [place] [address] Care Team Providers Care Rn Otolaryngology Name Role Phone Shelley Orellana MD Primary Care Provider [phone] Reason for Visit * Reason Comments Med Refill Encounter Details Date Type Department Care Team ([facility] Contact Info) Description 05/13/2024 Refill [facility] [address] [place], [place] [phone] Shelley Orellana MD [address] [place] [address] Social History Tobacco Use Types Packs/Day Years [...] Description 12/03/2024 9:45 AM EDT Office Visit [facility] [address] [place] [address] Shelley Orellana MD [address] [place] [address] documented as of this encounter Visit Diagnoses Not on filedocumented in this encounter Additional Health Concerns Assessment Noted Time PHQ-9 Depression Total Score: 0 05/22/19 23 10:16 AM EST documented as of this encounter Care Teams Rn Otolaryngology Relationship Specialty Start Date End Date Shelley Orellana MD [address] [place] [address] PCP - General Family Medicine 07/06/21 [facility] [address] [place] [address] Heat Treat Worker 07/28/24 documented as of this encounter
--- OUTSIDE RECORDS SUMMARY | 2024-11-19 10:15 | XMS_ITS | Clinical Summary ---
Author Organization [facility] Address [address] [place] [address] Phone Care Team Providers Care Perl Programmer Name Role Phone Shelley Orellana MD Primary Care Provider [phone] Allergies Active Allergy Reactions Criticality Noted Date [...] Phone Billing Address Personal/Family Self [address] (A2793) [facility] ([id number]) Care Teams Perl Programmer Relationship Specialty Start Date End Date Shelley Orellana MD PCP - General Family Medicine 02/28/22
--- OUTSIDE RECORDS SUMMARY | 2024-11-19 10:15 | XMS_ITS | Clinical Summary ---
Author Organization [employer] Address [address] [place] [address] Care Team Providers Care Water Pump Operator Name Role Phone Shelley Orellana MD Primary Care Provider [phone] Allergies Active Allergy Reactions Criticality Noted Date Comments Sulfa Antibiotics 03/16/2022 Medications cholecalcifero l VITAMIN D (Vitamin D-3) 50 [...] PAIN NEEDED 90 tablet 10/07/19 25 Active omeprazole (PriLOSEC) [address] capsule TAKE 1 CAPSULE BY MOUTH BEFORE BREAKFAST. DO NOT CRUSH OR CHEW. 30 capsule 11/08/19 25 Active omeprazole (PriLOSEC) [address] capsule Take 1 capsule (40 mg) by mouth before breakfast. Do not crush or chew. 30 capsule 08/02/19 25 025 Discontinued(Re order (will not trigger notification to Pharmacy)) Active Problems Problem Noted Date Diagnosed Date Memory impairment 08/11/2024 Assessment & Plan (08/12/2024 10:32 AM EDT): Patient initially reported to have memory problems, but this was later clarified as potentially inaccurate information. 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 Patient will [...] Encounters Date Type Department Care Team Description 11/07/2024 Refill [facility] MED & PEDS [address] [place] [address] Shelley Orellana MD 10/15/2024 Orders Only GENERIC EXTERNAL DATA DEPARTMENT Provider, Generic External Data 10/03/2024 Refill [facility] MED & PEDS [address] [place] [address] Shelley Orellana MD 10/03/2024 Refill [facility] MED & PEDS [address] [place] [address] Joseline Medrano FNP 09/15/2024 Telephone [facility] MEDICINE [address] [place] [address] Shelley Orellana MD No Show 09/09/2024 Refill [facility] MED & PEDS [address] [place] [address] Joseline Medrano FNP 09/02/2024 Refill [facility] MED & PEDS [address] [place] [address] Shelley Orellana MD from Last 3 Months [...] Description 12/03/2024 9:45 AM EDT Office Visit [facility] MED & PEDS [address] [place] [address] Shelley Orellana MD [address] [place] [address] Health Maintenance Due Date Last Done Comments [...] EDT Primary hypertension from Last 3 Months or Most Recently Relevant to Health Maintenance Results * CT Chest w/ Contrast (10/15/2024 10:17 PM EDT) Anatomical Region Laterality Modality Body, Chest Computed Tomogra phy 10/15/2024 10:1 7 PM EDT Narrative 10/15/2024 10:18 PM EDT [address] [address] [address] Scan Report Signed Patient: Jitendra Dotson MR#: [id number] : 1940 Acct:[id number] Age/Sex: 84 / M ADM Date: 10/15/24 Loc: HO.CT Attending Dr: Gill Manley MD Ordering Physician: Gill Manley MD Date of Service: 10/15/24 Procedure(s): CT chest w IV con Accession Number(s): [id number] cc: Gill Manley MD; Shelley Orellana MD Report Number: [id number]: Total DLP = 82.00 mGy-cm CLINICAL HISTORY: [...] This document has been electronically signed by: Nislon Grey MD on 10/15/2024 22:17:45 Dictated By: Nilson Grey MD Signed By: <Electronically signed by Nilson Grey MD in OV> 10/15/242217 DD/ 16 TD/TT: 10/15/242216 Border Measurer: Procedure Note Donotuseinterpreter, Image - 10/15/[address] [address] [address] Scan Report Signed Patient: Jitendra DotsonMR#: [id number] : 1940cct:[id number] Age/Sex: 84 / MADM Date: 10/15/24 Loc: HO.CT Attending Dr: Gill Manley MD Ordering Physician: Gill Manley MD Date of Service: 10/15/24 Procedure(s): CT chest w IV con Accession Number(s): [id number] cc: Gill Manley MD; Shelley Orellana MD Report Number: [id number]: Total DLP = 82.00 mGy-cm CLINICAL HISTORY: [...] in OV> 10/15/242217 DD/ 16 TD/TT: 10/15/242216 Border Measurer: [facility] External Provider IMG CT PROCEDURES Edited Result - Final * (ABNORMAL) Lipid Panel, Standard (08/11/2024 9:40 AM EDT) Triglycerides 48 <150 mg/dL [facility] Comment:Slight Lipemia.Maritza able Triglyceride: less than 150 mg/dLBorderline High Triglyceride 150-199 mg/dLHigh Triglyceride: 200-499 mg/dLVery High Triglyceride: greater than or equal to 5OO mg/dL Cholesterol 225(H) <200 mg/dL [facility] Comment:Desirable Cholestero l: less than 200 mg/dLBorderline High Cholesterol: 200-239 mg/dLHigh Cholesterol: greater than 239 mg/dL LDL Cholesterol Calculated 100(H) <100 mg/dL [facility] Comment:Desirable LDL: less than 100 mg/dLNear Optimal/Above Optimal LDL: 110- 129 mg/dLBorderline High LDL: 130-159 mg/dLHigh LDL: 160-189 mg/dLVery High LDL: greater than or equal to 190 mg/dL HDL Cholesterol 116 >40 mg/dL [facility] Comment:Desirable HDL: great er than 40 mg/dL Note: This HDL assay may give artificially low results in patients with liver disease. Blood Venous blood specimen / Unknown 08/11/2024 9:40 AM EDT 08/11/2024 2:29 PM EDT us Shelley Orellana MD LAB BLOOD ORDERABLES Final Re sult LABS [address] [place] [address] [phone] from Last 3 Months or Most Recently Relevant to Health Maintenance Insurance [employer] (O D-SNP) [facility] STANDARD Care Teams Water Pump Operator Relationship Specialty Start Date End Date Shelley Orellana MD [address] [place] [address] PCP - General Family Medicine 07/06/21 [facility] [address] [address] Division Head 07/28/24
--- OUTSIDE RECORDS SUMMARY | 2024-11-19 10:15 | XMS_ITS | Encounter Summary ---
Author Organization [employer] Address [address] [place] [address] Care Team Providers Care Revenue Collector Name Role Phone Shelley Orellana MD Primary Care Provider [phone] Reason for Visit * Reason Comments Med Refill Encounter Details Date Type Department Care Team ([facility] Contact Info) Description 07/31/2024 Refill [facility] CH[facility] MED & PEDS [address] [place], [place] [phone] Shelley Orellana MD [address] [place] [address] Social History Tobacco Use Types Packs/Day Years [...] Description 12/03/2024 9:45 AM EDT Office Visit [facility] CH[facility] MED & PEDS [address] [place] [address] Shelley Orellana MD [address] [place] [address] documented as of this encounter Visit Diagnoses Not on filedocumented in this encounter Additional Health Concerns Assessment Noted Time PHQ-9 Depression Total Score: 0 05/22/19 23 10:16 AM EST documented as of this encounter Care Teams Revenue Collector Relationship Specialty Start Date End Date Shelley Orellana MD [address] [place] [address] PCP - General Family Medicine 07/06/21 [facility] [address] [place] [address] 07/28/24 documented as of this encounter
[2024-11-19 14:39] LABS: Alanine Aminotransferase 94 U/L (0-40); Albumin Level 4.2 g/dL (3.5-5.0); Alkaline Phosphatase 90 U/L (39-117); Anion Gap 13 (12-20); Aspartate Amino Transferase 110 U/L (5-37); Blood Urea Nitrogen 9 mg/dL (9-16); Carbon Dioxide 25 mmol/L (22-29); Chloride 104 mmol/L (96-108); Estimated Glomerular Filt Rate > 60; Potassium 4.3 mmol/L (3.3-5.1); Sodium 138 mmol/L (135-145); Total Protein 7.0 g/dL (6.5-8.0)
== END 2024-11-19 09:38 | disposition home or self-care (01) ==
LOC: HO.HKASLDS 09:37
PROVIDERS: Visit Provider Internal Medicine Nephrology
DX: I10 Essential (primary) hypertension (principal); R74.01 Elevation of levels of liver transaminase levels
CPT/HCPCS: 36415; 80051; 80076; 82565; 84520

== ENCOUNTER 2024-11-27 09:25 | Outpatient (AMB) | payer OTHER, SELFPAY ==
--- NOTE | 2024-11-27 09:34 | HO.NEPHOV_ITS ---
Vital Signs 11/27/24 09:44 Height 5 ft 3 in Weight 135 lb 6 oz BMI 24.0 BP 120/70 Blood Pressure Location Lt brachial Position Sitting Pulse 88 Pulse Source Pulse Oximeter Pulse Oximetry (%) 95 Oxygen Delivery Method Room Air Intake Visit Reasons: 6 mo follow up-Conf Conservation Enforcement Officer Required: Yes Conservation Enforcement Officer Language: Licensed Sales Producer Services: Conservation Enforcement Officer Offered & Declined ([facility] Conservation Enforcement Officer services refused, patient accompanied by BOAT OUTBOARD ENGINE MECHANIC (Michaela)) Accompanied by: Other Relationship Allergies sulfamethazine (SULFAMETHAZINE) Allergy (Intermediate, Verified 11/27/24 09:43) ITCHING HPI Comments Details: I had the privilege of seeing Mr. Kitchen in follow-up of. He has history of lung cancer and had undergone lobectomy with chemo and radiation. He also had a left tonsillar cancer. He has been closely followed with oncologist. He has history hypertension and has been on medications with good control. His renal functions have been stable. He is not on any RUFUS inhibitor, ARB, nonsteroidals or spironolactone. He is not a diabetic. He still has a pulmonary nodule which is being followed up by his oncologist. He had no new complaints at the time of this office visit. 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) Surgical History History of biopsy (~2015) History of lung biopsy (~2015) Port-A-Cath in place History of lobectomy of lung (~2017) History of dental surgery Family History Other No family history of cancer Social History Household Members: None Housing: Apartment Are you a primary career orientation teacher to a significant other at home: No Do you presently have visiting nurse or other home services: Yes (cream hauler) Alcohol intake: former Patient Tobacco Use Status: Former Tobacco user Tobacco use type: Cigarette service: No Current occupational status: disabled Review of Systems Const All systems reviewed & are unremarkable except as noted in HPI and below Physical Exam Const General: comfortable and no acute distress Orientation/consciousness: patient oriented x3 HEENT Head: Yes normocephalic Mouth: Normal oral and palatal mucosa present Eyes EOM: EOMs intact bilaterally Neck Neck: Yes supple Resp Auscultation: clear to auscultation bilaterally Cardio Jugular venous distension: no JVD Rate: regular rate GI Palpation (GI): Soft to palpation Auscultation: normal bowel sounds General: Yes no CVA tenderness Back/Spine/Pelvis Back: no CVA tenderness Skin General skin exam: no rashes or lesions noted Neuro General: patient oriented x3 and moves all extremities Extrem General: Yes no pedal edema Results Reviewed Nephrology Results: Hgb, (14.0-18.0) 14.0 g/dl 11/13/24 WBC, (4.8-10.8) 6.5 X10*3/uL 11/13/24 Plt Count, (160-400) 265 X10*3/uL Δ 11/13/24 Sodium, (135-145) 138 mmol/L 11/19/24 Potassium, (3.3-5.1) 4.3 mmol/L 11/19/24 Chloride, (96-108) 104 mmol/L 11/19/24 Carbon Dioxide, (22-29) 25 mmol/L 11/19/24 BUN, (9-16) 9 mg/dL 11/19/24 Creatinine, (0.5-1.4) 0.76 mg/dL 11/19/24 Calcium, (8.4-10.2) 9.3 mg/dL 11/13/24 Renal US 04/18/23 Assessment & Plan Assessment & Plan (1) Hypertension: Code(s): I10 - Essential (primary) hypertension Category: Medical Qualifiers: Hypertension type: primary hypertension Qualified Code(s): I10 - Essential (primary) hypertension (2) Renal cyst, left: Code(s): N28.1 - Cyst of kidney, acquired Category: Medical Plan Mr. Kitchen has hypertension and is well controlled on current medication regimen. He had history of labile potassium levels but is normal now. He has a left renal cyst which is asymptomatic. He has no hematuria, proteinuria, flank pain. He maintains good hydration. He avoids nonsteroidals. I did not make any medication changes today. All questions were answered. Follow-up given Orders: Orders Electrolytes 7 Months I10 - Essential (primary) hypertension, N28.1 - Cyst of kidney, acquired Calcium 7 Months I10 - Essential (primary) hypertension, N28.1 - Cyst of kidney, acquired Protein Creatinine Ratio, Ur 7 Months I10 - Essential (primary) hypertension, N28.1 - Cyst of kidney, acquired Creatinine 7 Months I10 - Essential (primary) hypertension, N28.1 - Cyst of kidney, acquired Blood Urea Nitrogen 7 Months I10 - Essential (primary) hypertension, N28.1 - Cyst of kidney, acquired Coding Level of Care Code Est Pt Level 4 (63160) Diagnoses Primary hypertension I10 Hypertension type: primary hypertension Renal cyst, left N28.1
[2024-11-27 09:44] VITALS: BP 120/70; PULSE 88; O2SAT 95; BMI 24.0
--- OUTSIDE RECORDS SUMMARY | 2024-11-27 10:08 | XMS_ITS | Encounter Summary ---
Author Organization [employer] Address [address] [place] [address] Care Team Providers Care Coal Dumping Equipment Operator Name Role Phone Shelley Orellana MD Primary Care Provider [phone] Reason for Visit * Reason Comments Med Refill Encounter Details Date Type Department Care Team ([facility] Contact Info) Description 07/31/2024 Refill [facility] MED & PEDS [address] [place], [place] [phone] Shelley Orellana MD [address] [place] [address] Social History Tobacco Use Types Packs/Day Years [...] Description 12/03/2024 9:45 AM EDT Office Visit [facility] MED & PEDS [address] [place] [address] Shelley Orellana MD [address] [place] [address] documented as of this encounter Visit Diagnoses Not on filedocumented in this encounter Additional Health Concerns Assessment Noted Time PHQ-9 Depression Total Score: 0 05/22/19 23 10:16 AM EST documented as of this encounter Care Teams Coal Dumping Equipment Operator Relationship Specialty Start Date End Date Shelley Orellana MD [address] [place] [address] PCP - General Family Medicine 07/06/21 [facility] [address] [place] [address] Erection Shop Supervisor 07/28/24 documented as of this encounter
--- OUTSIDE RECORDS SUMMARY | 2024-11-27 10:08 | XMS_ITS | Encounter Summary ---
Author Organization [employer] Address [address] [facility] [address] [place] [address] Care Team Providers Care City Marshal Name Role Phone Shelley Orellana MD Primary Care Provider [phone] Reason for Visit * Reason Comments Pre-visit Planning SDOH screening compl eted on 08/11/24 Encounter Details Date Type Department Care Team ([facility] Contact Info) Description 11/26/2024 Patient Outreach [facility] MEDICINE [address] [place] [address] Shelley Orellana MD [address] [place] [address] Pre-visit Planning (SDOH screening completed on 08/11/24 ) Social History Tobacco Use Types Packs/Day Years [...] AM EDT documented as of this encounter Progress Notes * Jacqueline Manzanares - 11/26/2024 2:48 PM EDT CC Jacqueline Will placed successful outbound call to patient for pre-visit planning. Patient name and confirmed. Patient confirms appt date and time, and has transportation arrangements. Biggest concern for appointment at this time is no concerns. Patient advised to bring to appointment a photo id and insurance card. Appropriate screenings completed in anticipation of appointment. documented in this encounter Plan of Treatment Upcoming Encounters Date Type Department Care Team ([facility] st Contact Info) Description 12/03/2024 9:45 AM EDT Office Visit [facility] MED & PEDS [address] [place] [address] Shelley Orellana MD [address] [place] [address] documented as of this encounter Visit Diagnoses Not on filedocumented in this encounter Additional Health Concerns Assessment Noted Time PHQ-9 Depression Total Score: 0 08/12/19 25 9:06 AM EDT documented as of this encounter Care Teams City Marshal Relationship Specialty Start Date End Date Shelley Orellana MD [address] [place] [address] PCP - General Family Medicine 07/06/21 [facility] [address] [place] [address] Certified Professional Midwife 07/28/24 documented as of this encounter
--- OUTSIDE RECORDS SUMMARY | 2024-11-27 10:08 | XMS_ITS | Encounter Summary ---
Author Organization [employer] Address [address] [facility] [address] [place] [address] Care Team Providers Care Diploma Pharmacy Technician Name Role Phone Shelley Orellana MD Primary Care Provider [phone] Reason for Visit * Reason Onset Date Comments Med Refill 12/06/2022 Encounter Details Date Type Department Care Team ([facility] st Contact Info) Description 12/06/2022 Telephone [facility] MED & PEDS [address] [place] [address] Shelley Orellana MD [address] [place] [address] Med Refill Social History Tobacco Use Types [...] have a refill medication was sent to [facility] on 09/05/22 #90 with 1 refill. * Telephone Encounter - Reema Hayes - 12/06/2022 9:44 AM EDT Tc from pt requesting med refill for medication omeprazole (PriLOSEC) [address] capsule. documented in this encounter Plan of Treatment Upcoming Encounters Date Type Department Care Team ([facility] Contact Info) Description 12/03/2024 9:45 AM EDT Office Visit [facility] MED & PEDS [address] [place] [address] Shelley Orellana MD [address] [place] [address] documented as of this encounter Visit Diagnoses Not on filedocumented in this encounter Additional Health Concerns Assessment Noted Time PHQ-9 Depression Total Score: 0 05/22/19 23 10:16 AM EST documented as of this encounter Care Teams Diploma Pharmacy Technician Relationship Specialty Start Date End Date Shelley Orellana MD [address] [place] [address] PCP - General Family Medicine 07/06/21 [facility] [address] [place] [address] Bone Crusher 07/28/24 documented as of this encounter
--- OUTSIDE RECORDS SUMMARY | 2024-11-27 10:08 | XMS_ITS | Clinical Summary ---
Author Organization [employer] Address [address] [facility] 7t [place] [address] Care Team Providers Care Alternative Energy Engineer Name Role Phone Shelley Orellana MD Primary Care Provider [phone] Allergies Active Allergy Reactions Criticality Noted Date [...] information. Patient had a memory screening with [employer] for [employer] which was normal. Patient will [...] Encounters Date Type Department Care Team Description 11/26/2024 Patient Outreach [facility] [address] [place] [phone] Shelley Orellana MD Pre-visit Planning (SDOH screening completed on 08/11/24 ) 11/19/2024 Orders Only GENERIC EXTERNAL DATA DEPARTMENT Provider, Generic External Data 11/07/2024 Refill [facility] PEDS [address] [place] [address] Shelley Orellana MD 10/15/2024 Orders Only GENERIC EXTERNAL DATA DEPARTMENT Provider, Generic External Data 10/03/2024 Refill [facility] [address] [place] [address] Shelley Orellana MD 10/03/2024 Refill [facility] [address] [place] [address] Joseline Medrano FNP 09/15/2024 Telephone [facility] [address] [place] [address] Shelley Orellana MD No Show 09/09/2024 Refill [facility] [address] [place] [address] Joseline Medrano FNP 09/02/2024 Refill [facility] [address] [place] [address] Shelley Orellana MD from Last 3 Months [...] Upcoming Encounters Date Type Department Care Team ([facility] st Contact Info) Description 12/03/2024 9:45 AM EDT Office Visit [facility] [address] [place] [address] Shelley Orellana MD [address] [place] [address] Health Maintenance Due Date Last Done Comments Zoster Vaccines (1 of 2) 01/16/1992 RSV Patients and Patients Aged 60 years or older (1 - 1-dose 75+ series) 2017 COVID-19 Vaccine ( season) 2024 03/13/2022, 04/22/2021, 07/26/2020, Additional history exists Influenza Vaccine (#1) 2024 3, 01/06/2022, 04/23/2017 Alcohol/Substance Use Screening 08/11/2025 08/11/2024 [...] Procedure Name Priority Date/Time Associated Diagnosis Comments CREATININE, SERUM Routine 11/19/2024 9:3 9 AM EDT UREA NITROGEN (BUN) Routine 11/19/2024 9 :39 AM EDT ELECTROLYTE PANEL Routine 11/19/2024 9:3 9 AM EDT HEPATIC FUNCTION PANEL Routine 11/19/2024 9:[address] CHEST W CONTRAST Routine 10/15/2024 1 0:17 PM EDT POCT CREATININE GFR Routine 10/15/2024 3 :00 PM EDT LIPID PANEL, STANDARD Routine 08/11/2024 9:40 AM EDT Primary hypertension from Last 3 Months or Most Recently Relevant to Health Maintenance Results * Creatinine, Serum (11/19/2024 9:39 AM EDT) Creatinine, Serum 0.76 0.5 - 1.4 mg/dL [facility] Estimated Glomerular Filt Rate >60 [facility] Comment:Chronic Kidney Disea se: Estimated GFR < 60 mL/min/1.03t3Uvyddz Kidney Disease: Estimated GFR < 15 mL/min/1.73m2 11/19/2024 9:39 AM EDT 11/19/2024 1:44 PM EDT us Generic External Data Provider LAB BLOOD ORDERAB LES Final Result [facility] [address] [place] [phone] * BUN (Blood Urea Nitrogen) (11/19/2024 9:39 AM EDT) Urea Nitrogen (BUN) 9 9 - 16 mg/dL [facility] 11/19/2024 9:39 AM EDT 11/19/2024 1:44 PM EDT us Generic External Data Provider LAB BLOOD ORDERAB LES Final Result Performing Organization Address [facility]/ZIP Co de Phone Number [facility] [address] [place] [phone] * (ABNORMAL) Hepatic Function Panel (11/19/2024 9:39 AM EDT) Bilirubin, Total 0.5 0.0 - 1.0 mg/dL [facility] Bilirubin, Direct 0.2 0.0 - 0.5 mg/dL [facility] Aspartate Amino Transferase 110(H) 5 - 37 U/L [facility] Alanine Aminotransferase 94(H) 0 - 40 U/L [facility] Total Protein 7.0 6.5 - 8.0 g/dL [facility] Albumin Level 4.2 3.5 - 5.0 g/dL [facility] Alkaline Phosphatase 90 39 - 117 U/L [facility] Blood Venous blood specimen / Unknown 11/19/2024 9:39 AM EDT 11/19/2024 1:44 PM EDT us Shelley Orellana MD LAB BLOOD ORDERABLES Final Re sult Performing Organization Address City/[facility]/ZIP Co de Phone Number [facility] [address] [place] [phone] * Electrolyte Panel (11/19/2024 9:39 AM EDT) Sodium 138 135 - 145 mmol/L [facility] Potassium 4.3 3.3 - 5.1 mmol/L [facility] Chloride 104 96 - 108 mmol/L [facility] Carbon Dioxide 25 22 - 29 mmol/L [facility] Anion Gap 13 12 - 20 [facility] 11/19/2024 9:39 AM EDT 11/19/2024 1:44 PM EDT us Generic External Data Provider LAB BLOOD ORDERAB LES Final Result [facility] [address] [place] [phone] * CT Chest w/ Contrast (10/15/2024 10:17 PM EDT) Anatomical Region Laterality Modality Body, Chest Computed Tomogra phy 10/15/2024 10:1 7 PM EDT Narrative 10/15/2024 10:18 PM EDT [address] [address] [address] Scan Report Signed Patient: Jitendra Dotson MR#: [id number] : 1940 Acct:[id number] Age/Sex: 84 / M ADM Date: 10/15/24 Loc: HO.CT Attending Dr: Gill Manley MD Ordering Physician: Gill Manley MD Date of Service: 10/15/24 Procedure(s): CT chest w IV con Accession Number(s): [id number] cc: Gill Manley MD; Shelley Orellana MD Report Number: [id number]: Total DLP = 82.00 mGy-cm CLINICAL HISTORY: [...] in OV> 10/15/242217 DD/ 16 TD/TT: 10/15/242216 Materials Planning Manager: Procedure Note Donotuseinterpreter, Image - 10/15/[address] [place] [address] [address] Scan Report Signed Patient: Jitendra DotsonMR#: [id number] : 1940cct:[id number] Age/Sex: 84 / MADM Date: 10/15/24 Loc: HO.CT Attending Dr: Gill Manley MD Ordering Physician: Gill Manley MD Date of Service: 10/15/24 Procedure(s): CT chest w IV con Accession Number(s): [id number] cc: Gill Manley MD; Shelley Orellana MD Report Number: [id number]: Total DLP = 82.00 mGy-cm CLINICAL HISTORY: [...] in OV> 10/15/242217 DD/ 16 TD/TT: 10/15/242216 Materials Planning Manager: [facility] External Provider IMG CT PROCEDURES Edited Result - Final * (ABNORMAL) Lipid Panel, Standard (08/11/2024 9:40 AM EDT) Triglycerides 48 <150 mg/dL [facility] Comment:Slight Lipemia.Maritza able Triglyceride: less than 150 mg/dLBorderline High Triglyceride 150-199 mg/dLHigh Triglyceride: 200-499 mg/dLVery High Triglyceride: greater than or equal to 5OO mg/dL Cholesterol 225(H) <200 mg/dL [facility] Comment:Desirable Cholestero l: less than 200 mg/dLBorderline High Cholesterol: 200-239 mg/dLHigh Cholesterol: greater than 239 mg/dL LDL Cholesterol Calculated 100(H) <100 mg/dL [facility] Comment:Desirable LDL: less than 100 mg/dLNear Optimal/Above Optimal LDL: 110- 129 mg/dLBorderline High LDL: 130-159 mg/dLHigh LDL: 160-189 mg/dLVery High LDL: greater than or equal to 190 mg/dL HDL Cholesterol 116 >40 mg/dL [facility] Comment:Desirable HDL: great er than 40 mg/dL Note: This HDL assay may give artificially low results in patients with liver disease. Blood Venous blood specimen / Unknown 08/11/2024 9:40 AM EDT 08/11/2024 2:29 PM EDT us Shelley Orellana MD LAB BLOOD ORDERABLES Final Re sult [facility] [address] [place] [phone] from Last 3 Months or Most Recently Relevant to Health Maintenance Insurance [employer] OPTIONS (HMO D-SNP) [facility] STANDARD Care Teams Alternative Energy Engineer Relationship Specialty Start Date End Date Shelley Orellana MD [address] [place] [phone] PCP - General Family Medicine 07/06/21 [facility] [address] [facility] [address], [place] [address] High School Combination Teacher 07/28/24
--- OUTSIDE RECORDS SUMMARY | 2024-11-27 10:08 | XMS_ITS | Encounter Summary ---
Author Organization [employer] Address [address] [place] [address] Care Team Providers Care Cloth Baler Name Role Phone Shelley Orellana MD Primary Care Provider [phone] Reason for Visit * Reason Comments Med Refill Encounter Details Date Type Department Care Team ([facility] Contact Info) Description 05/13/2024 Refill [facility]EDS [address] [place], [place] [phone] Shelley Orellana MD [address] [place] [address] Social History Tobacco Use Types Packs/Day Years [...] Description 12/03/2024 9:45 AM EDT Office Visit [facility] [address] [place] [address] Shelley Orellana MD [address] [place] [address] documented as of this encounter Visit Diagnoses Not on filedocumented in this encounter Additional Health Concerns Assessment Noted Time PHQ-9 Depression Total Score: 0 05/22/19 23 10:16 AM EST documented as of this encounter Care Teams Cloth Baler Relationship Specialty Start Date End Date Shelley Orellana MD [address] [place] [address] PCP - General Family Medicine 07/06/21 [facility] [address] [place] [address] Marine Animal Trainer 07/28/24 documented as of this encounter
--- OUTSIDE RECORDS SUMMARY | 2024-11-27 10:08 | XMS_ITS | Encounter Summary ---
Author Organization [employer] Address [address] [facility] [address] [place] [address] Care Team Providers Care Chimney Repairer Name Role Phone Shelley Orellana MD Primary Care Provider [phone] Reason for Visit * Reason Comments Med Refill Encounter Details Date Type Department Care Team ([facility] Contact Info) Description 07/02/2024 Refill [facility] MED & PEDS [address] [place], [place] [phone] Shelley Orellana MD [address] [place] [address] Social History Tobacco Use Types Packs/Day Years [...] Description 12/03/2024 9:45 AM EDT Office Visit [facility] PEDS [address] [place] [address] Shelley Orellana MD [address] [place] [address] documented as of this encounter Visit Diagnoses Not on filedocumented in this encounter Additional Health Concerns Assessment Noted Time PHQ-9 Depression Total Score: 0 05/22/19 23 10:16 AM EST documented as of this encounter Care Teams Chimney Repairer Relationship Specialty Start Date End Date Shelley Orellana MD [address] [place] [address] PCP - General Family Medicine 07/06/21 [facility] [address] [place] [address] Service Girl 07/28/24 documented as of this encounter
--- OUTSIDE RECORDS SUMMARY | 2024-11-27 10:08 | XMS_ITS | Clinical Summary ---
Author Organization [facility] Address [address] [place] [address] Phone Care Team Providers Care Fisher Mussel Name Role Phone Shelley Orellana MD Primary Care Provider [phone] Allergies Active Allergy Reactions Criticality Noted Date [...] Phone Billing Address Personal/Family Self 1940 [address] ([id number]) [facility] ([id number]) Care Teams Fisher Mussel Relationship Specialty Start Date End Date Shelley Orellana MD PCP - General Family Medicine 02/28/22
== END 2024-11-27 09:54 | disposition home or self-care (01) ==
LOC: HO.HKAS 09:25
PROVIDERS: PCP Family Medicine; Visit Provider Internal Medicine Nephrology
DX: I10 Essential (primary) hypertension (principal); N28.1 Cyst of kidney, acquired
CPT/HCPCS: 99214

== ENCOUNTER → 2024-11-27 09:25 | Outpatient (BNVA) | payer OTHER, SELFPAY | PROVIDERS: PCP Family Medicine; Visit Provider Internal Medicine Nephrology | DX: I10 Essential (primary) hypertension (principal); N28.1 Cyst of kidney, acquired | CPT/HCPCS: 99212 ==